=== PATIENT | female | born 1975 | race Caucasian/White ===

== ENCOUNTER 2020-07-12 18:56 | Observation (INO) | payer OTHER, MEDICAID, SELFPAY ==
[2020-07-12 19:01] VITALS: BP 165/105; PULSE 109; RESP 16; TEMP 36.7; O2SAT 96; BMI 36.8
[2020-07-12 19:49] LABS: Bacteria Urine None Seen
[2020-07-12 20:05] LABS: Culture Indicated Urine Cult Not Indicated; RBC Urine 0-1/HPF (0-5/HPF); Squamous Epithelial Cell Urine 1-5 /HPF (0-5/HPF); WBC Urine 0-1/HPF (0-5/HPF)
[2020-07-12] MEDS: SODIUM CHLORIDE 0.9% 1,000 ML 150 ML IV (20:51)
[2020-07-12] MEDS: ONDANSETRON 4 MG/2 ML INJ IV ×2 (20:51→22:39)
[2020-07-12] MEDS: MORPHINE 4 MG/ML INJ IV (20:52)
--- NOTE | 2020-07-12 20:56 | ED.ABDPAIN ---
HPI - Abdominal Pain <DAWSON Abernathy-BC - Last Filed: 07/12/20 21:51> General Chief Complaint: Abdominal Pain Stated Complaint: N/V/D and stomach pain Time Seen by Provider: 07/12/20 20:11 Source: patient Mode of arrival: Ambulatory Limitations: no limitations History of Present Illness HPI narrative: The patient is a 45-year-old female nonsmoker with history of diverticulitis who presents with a chief complaint of abdominal pain. Has been going on since yesterday, without nausea, 2 episodes of vomiting and some diarrhea this morning. She states she does not have any appetite and has not had anything solid to eat today. She denies any fevers, complains of muscle aches and chills. She states she had an episode of diverticulitis few years ago and this might feel like that. She denies any dysuria urgency or frequency. She has not taken anything to feel better. Related Data Home Medications Medication Instructions Recorded Confirmed cetirizine [Zyrtec] 10 mg PO DAILY 07/13/20 07/13/20 fluticasone propionate [Flonase 2 spray INTRANASAL DAILY 07/13/20 07/13/20 Allergy Relief] lisinopril 20 mg PO DAILY 07/13/20 07/13/20 nadolol 40 mg PO BID 07/13/20 07/13/20 Allergies Allergy/AdvReac Type Severity Reaction Status Date / Time labetalol Allergy Unknown Verified 07/12/20 20:11 Review of Systems <PRINCESS AbernathyP- - Last Filed: 07/12/20 21:51> Review of Systems Narrative: GENERAL: Denies chills, fatigue, malaise, fever, sweats. HEENT: Denies sinus pain, ear pain, sore throat, difficulty swallowing, dizziness. RESPIRATORY: Denies dyspnea, cough, wheezing, hemoptysis, sputum. CARDIOVASCULAR: Denies chest pain, palpitations, orthopnea, edema, GASTROINTESTINAL: See HPI : Denies dysuria, frequency, incontinence, hematuria, urinary retention. MUSCULOSKELETAL: denies weakness, joint pain, or bony pain SKIN: Denies rash, skin lesions, or other NEUROLOGIC: Denies weakness, headache, numbness, change in speech, confusion, seizures, incoordination. PSYCHIATRIC: No concerning psychosocial issues. 12 point review of systems is negative except for those stated above Patient History <TIMOTEO Abernathy - Last Filed: 07/12/20 21:51> Medical History (Updated 07/13/20 @ 04:44 by Valdo Golden MD) History of diverticulitis (Acute) Surgical History (Updated 07/12/20 @ 20:57 by TIMOTEO Abernathy) History of tubal ligation (Acute) Social History household members: spouse and children Smoking Status: Never smoker alcohol intake: never Smoking Status: Never smoker Substance Use Type: does not use Exam <TIMOTEO Abernathy - Last Filed: 07/12/20 21:51> Narrative Exam Narrative: GENERAL: This is a well-nourished, well-developed patient, in no acute distress HEAD: Atraumatic. Normocephalic. No temporal or scalp tenderness. EYES: Pupils equal round and reactive. Extraocular motions intact. No scleral icterus. No injection or drainage. ENT: Nose without bleeding, purulent drainage or septal hematoma. Wearing a mass. Airway patent. NECK: Trachea midline. No JVD or lymphadenopathy. Supple, nontender, no meningeal signs. CARDIOVASCULAR: Regular rate and rhythm RESPIRATORY: Clear to auscultation. Breath sounds equal bilaterally. No wheezes, rales, or rhonchi. No cough. No increased respiratory effort. No accessory muscle use. GASTROINTESTINAL: Abdomen soft, diffusely tender, nondistended. No hepato-splenomegaly, or palpable masses. No guarding. Active bowel sounds all 4 quadrants EXTREMITIES: No clubbing, cyanosis, or edema. No joint tenderness, effusion, or edema noted. BACK: Nontender without deformity or crepitance. No flank tenderness. NEURO: AOx3. No gross cranial nerve deficit. Clear speech. SKIN: No rash or erythema on visible skin Initial Vital Signs Initial Vital Signs: Vital Signs Temperature 98.0 F 07/12/20 19:01 Pulse Rate 109 H 07/12/20 19:01 Respiratory Rate 16 07/12/20 19:01 Blood Pressure 165/105 H 07/12/20 19:01 Pulse Oximetry 96 07/12/20 19:01 <Valdo Golden MD - Last Filed: 07/13/20 06:58> Initial Vital Signs Initial Vital Signs: Vital Signs Temperature 98.0 F 07/12/20 19:01 Pulse Rate 109 H 07/12/20 19:01 Respiratory Rate 16 07/12/20 19:01 Blood Pressure 165/105 H 07/12/20 19:01 Pulse Oximetry 96 07/12/20 19:01 Scores <DAWSON AbernathySusanBC - Last Filed: 07/12/20 21:51> GCS Clyo coma scale eye opening: Spontaneous Hugo coma scale verbal response: Orientated Clyo coma scale motor response: Obey commands Hugo coma scale total score: 15 Course <MILLIE AbernathyBC - Last Filed: 07/12/20 21:51> Course Course Narrative: The patient is a 45-year-old female with history of diverticulitis who presents with a chief complaint of diffuse abdominal pain. She does not have an acute abdomen on exam. She is afebrile and hemodynamically stable. Basic lab work was returned, x-ray was ordered and patient was given IV fluids as morphine and Zofran for pain. If patient was signed out to Dr. Golden at 9:45 p.m. with imaging pending. CT ordered for [facility] as our CT is down at this point. Orders Ordered: ED Orders 07/13/20 01:15 Test Serum,Qual Stat 07/13/20 01:50 CT abdomen pelvis w con Stat 07/13/20 03:20 COVID19 -ED/INPAT/OR/L&D Stat Sodium Chloride (Normal Saline 0.9%) 1,000 mls @ 150 mls/hr IV CONT KWAKU Last Admin: 07/13/20 06:27 Dose: 150 mls/hr Documented by: Infusion: 07/13/20 06:27 Dose: 0 mls/hr Documented by: Infusion: 07/13/20 05:39 Dose: 0 mls/hr Documented by: Admin: 07/13/20 01:40 Dose: 150 mls/hr Documented by: Infusion: 07/13/20 01:40 Dose: 0 mls/hr Documented by: Infusion: 07/13/20 01:39 Dose: 0 mls/hr Documented by: Admin: 07/12/20 20:51 Dose: 150 mls/hr Documented by: KEENAN Sodium Chloride (Normal Saline 0.9%) 1,000 mls @ 1,000 mls/hr IV BOLUS PRN PRN Reason: Fluid replacement Discontinued Medications Hydromorphone HCl (Dilaudid) 1 mg IV NOW ONE Stop: 07/13/20 02:45 Last Admin: 07/13/20 02:51 Dose: 1 mg Documented by: KEENAN Metronidazole (Flagyl) 500 mg in 100 mls @ 100 mls/hr IV NOW ONE Stop: 07/13/20 02:14 Last Infusion: 07/13/20 02:40 Dose: 0 mls/hr Documented by: Admin: 07/13/20 01:38 Dose: 100 mls/hr Documented by: KEENAN Piperacillin/Tazobactam/Dextrose (Zosyn) 3.375 gm in 50 mls @ 100 mls/hr IV NOW ONE Stop: 07/13/20 05:17 Last Infusion: 07/13/20 05:38 Dose: 0 mls/hr Documented by: Admin: 07/13/20 05:03 Dose: 100 mls/hr Documented by: KEENAN Metoclopramide HCl (Reglan) 10 mg IV NOW ONE Stop: 07/13/20 02:45 Last Admin: 07/13/20 02:51 Dose: 10 mg Documented by: KEENAN Morphine Sulfate (Morphine) 4 mg IV NOW ONE Stop: 07/12/20 20:20 Last Admin: 07/12/20 20:52 Dose: 4 mg Documented by: KEENAN Ondansetron HCl (Zofran) 4 mg IV NOW ONE Stop: 07/12/20 20:20 Last Admin: 07/12/20 20:51 Dose: 4 mg Documented by: KEENAN Ondansetron HCl (Zofran) 4 mg IV NOW ONE Stop: 07/12/20 22:38 Last Admin: 07/12/20 22:39 Dose: 4 mg Documented by: KEENAN Vital Signs Vital signs: Vital Signs - 8 hr 07/13/20 00:17 07/13/20 00:18 07/13/20 00:30 Pulse Rate 104 H 100 H Respiratory Rate Blood Pressure 125/74 129/69 Pulse Oximetry 95 94 92 07/13/20 01:00 07/13/20 01:30 07/13/20 02:40 Pulse Rate 100 H 99 H 100 H Respiratory Rate 16 Blood Pressure 140/89 144/89 H 136/85 Pulse Oximetry 92 93 96 07/13/20 03:00 07/13/20 03:30 07/13/20 04:00 Pulse Rate 103 H 97 H 112 H Respiratory Rate Blood Pressure Pulse Oximetry 86 L 90 L 92 07/13/20 04:03 07/13/20 04:10 Pulse Rate 108 H 109 H Respiratory Rate Blood Pressure 154/103 H 155/93 H Pulse Oximetry 92 93 <Valdo Golden MD - Last Filed: 07/13/20 06:58> Course Course Narrative: Delay and disposition due to CT scan being down and potential transfer to [facility] but change in status of CT scan allowed patient to have CT scan here. Decision to Admit Date: 07/13/20 Decision to Admit time: 04:51 Orders Ordered: ED Orders 07/13/20 01:15 Test Serum,Qual Stat 07/13/20 01:50 CT abdomen pelvis w con Stat 07/13/20 03:20 COVID19 -ED/INPAT/OR/L&D Stat Sodium Chloride (Normal Saline 0.9%) 1,000 mls @ 150 mls/hr IV CONT KWAKU Last Admin: 07/13/20 06:27 Dose: 150 mls/hr Documented by: Infusion: 07/13/20 06:27 Dose: 0 mls/hr Documented by: Infusion: 07/13/20 05:39 Dose: 0 mls/hr Documented by: Admin: 07/13/20 01:40 Dose: 150 mls/hr Documented by: Infusion: 07/13/20 01:40 Dose: 0 mls/hr Documented by: Infusion: 07/13/20 01:39 Dose: 0 mls/hr Documented by: Admin: 07/12/20 20:51 Dose: 150 mls/hr Documented by: KEENAN Sodium Chloride (Normal Saline 0.9%) 1,000 mls @ 1,000 mls/hr IV BOLUS PRN PRN Reason: Fluid replacement Discontinued Medications Hydromorphone HCl (Dilaudid) 1 mg IV NOW ONE Stop: 07/13/20 02:45 Last Admin: 07/13/20 02:51 Dose: 1 mg Documented by: KEENAN Metronidazole (Flagyl) 500 mg in 100 mls @ 100 mls/hr IV NOW ONE Stop: 07/13/20 02:14 Last Infusion: 07/13/20 02:40 Dose: 0 mls/hr Documented by: Admin: 07/13/20 01:38 Dose: 100 mls/hr Documented by: KEENAN Piperacillin/Tazobactam/Dextrose (Zosyn) 3.375 gm in 50 mls @ 100 mls/hr IV NOW ONE Stop: 07/13/20 05:17 Last Infusion: 07/13/20 05:38 Dose: 0 mls/hr Documented by: Admin: 07/13/20 05:03 Dose: 100 mls/hr Documented by: KEENAN Metoclopramide HCl (Reglan) 10 mg IV NOW ONE Stop: 07/13/20 02:45 Last Admin: 07/13/20 02:51 Dose: 10 mg Documented by: KEENAN Morphine Sulfate (Morphine) 4 mg IV NOW ONE Stop: 07/12/20 20:20 Last Admin: 07/12/20 20:52 Dose: 4 mg Documented by: KEENAN Ondansetron HCl (Zofran) 4 mg IV NOW ONE Stop: 07/12/20 20:20 Last Admin: 07/12/20 20:51 Dose: 4 mg Documented by: KEENAN Ondansetron HCl (Zofran) 4 mg IV NOW ONE Stop: 07/12/20 22:38 Last Admin: 07/12/20 22:39 Dose: 4 mg Documented by: KEENAN Reevaluation(s) Reevaluation #1: Updated patient about diagnosis and need to be admitted here. Surgeon to see patient Time: 04:52 Consultations Consultation #1: s/w dr kenny, general surgery. Had Zosyn to antibiotic. Do not order ultrasound. He will admit patient Time: 04:52 Vital Signs Vital signs: Vital Signs - 8 hr 07/13/20 00:17 07/13/20 00:18 07/13/20 00:30 Pulse Rate 104 H 100 H Respiratory Rate Blood Pressure 125/74 129/69 Pulse Oximetry 95 94 92 07/13/20 01:00 07/13/20 01:30 07/13/20 02:40 Pulse Rate 100 H 99 H 100 H Respiratory Rate 16 Blood Pressure 140/89 144/89 H 136/85 Pulse Oximetry 92 93 96 07/13/20 03:00 07/13/20 03:30 07/13/20 04:00 Pulse Rate 103 H 97 H 112 H Respiratory Rate Blood Pressure Pulse Oximetry 86 L 90 L 92 07/13/20 04:03 07/13/20 04:10 Pulse Rate 108 H 109 H Respiratory Rate Blood Pressure 154/103 H 155/93 H Pulse Oximetry 92 93 MDM - Abdominal Pain <DAWSON Abernathy- - Last Filed: 07/12/20 21:51> Differential Diagnosis Differential diagnosis: Likely abdominal pain, constipation, diverticulitis and gastroenteritis Lab Data Result diagrams: 07/12/20 20:53 07/12/20 20:53 Labs: Lab Results 07/12/20 07/12/20 07/12/20 Range/Units 19:35 20:53 20:53 WBC 19.6 H (4.5-11.0) X10^3/uL RBC 4.99 (4.0-5.2) X10^6/uL Hgb 14.8 (12.0-16.0) g/dL Hct 42.2 (36-46) % MCV 84.5 (80-100) fL MCH 29.6 (26-34) PG MCHC 35.0 (30-36) % RDW 13.2 (11.6-14.8) % Plt Count 246 (150-400) X10^3/uL Neut % (Auto) 83.4 H (50-75) % Lymph % (Auto) 9.3 L (25-40) % [place] % (Auto) 6.3 (3-14) % Eos % (Auto) 0.0 L (2-4) % Baso % (Auto) 1.0 (0-2) % Neut # (Auto) 22824 H (7740-8648) /uL Lymph # (Auto) 1800 (1828-2014) /uL [place] # (Auto) 1200 H (0-900) /uL Eos # (Auto) 0 (0-450) /uL Baso # (Auto) 200 H (0-100) /uL Sodium 135 L (137-145) mmol/L Potassium 3.5 (3.4-5.1) mmol/L Chloride 95 L (98-107) mmol/L Carbon Dioxide 29 (22-32) mmol/L BUN 15 (7-17) mg/dL Creatinine 0.72 (0.52-1.04) mg/dL Estimated GFR > 60.0 (>60) mL/min BUN/Creatinine Ratio 20.8 (6-22) Glucose 138 H (70-100) mg/dL Lactate (0.7-2.1) mmol/L Calcium 9.9 (8.4-10.2) mg/dL Total Bilirubin 0.8 (0.2-1.3) mg/dL AST 21 (14-36) IU/L ALT 20 (<35) IU/L Alkaline Phosphatase 32 L (38-126) U/L Total Protein 8.2 (6.3-8.2) g/dL Albumin 4.4 (3.5-5.0) g/dL Globulin 3.8 (1.7-4.1) g/dL Albumin/Globulin Ratio 1.2 (1.0-2.8) Lipase 106 (23-300) U/L Serum , Qual (Negative) Urine RBC 0-1/hpf (0-5/HPF) Urine WBC 0-1/hpf (0-5/HPF) Ur Squamous Epith Cells 1-5 /hpf (0-5/HPF) Urine Bacteria None seen (None) Ur Culture Indicated? Cult not indicated COVID-19 PCR (Negative) 07/12/20 07/12/20 07/13/20 Range/Units 20:53 20:53 03:20 WBC (4.5-11.0) X10^3/uL RBC (4.0-5.2) X10^6/uL Hgb (12.0-16.0) g/dL Hct (36-46) % MCV (80-100) fL MCH (26-34) PG MCHC (30-36) % RDW (11.6-14.8) % Plt Count (150-400) X10^3/uL Neut % (Auto) (50-75) % Lymph % (Auto) (25-40) % [place] % (Auto) (3-14) % Eos % (Auto) (2-4) % Baso % (Auto) (0-2) % Neut # (Auto) (4484-3656) /uL Lymph # (Auto) (9501-3994) /uL [place] # (Auto) (0-900) /uL Eos # (Auto) (0-450) /uL Baso # (Auto) (0-100) /uL Sodium (137-145) mmol/L Potassium (3.4-5.1) mmol/L Chloride (98-107) mmol/L Carbon Dioxide (22-32) mmol/L BUN (7-17) mg/dL Creatinine (0.52-1.04) mg/dL Estimated GFR (>60) mL/min BUN/Creatinine Ratio (6-22) Glucose (70-100) mg/dL Lactate 1.7 (0.7-2.1) mmol/L Calcium (8.4-10.2) mg/dL Total Bilirubin (0.2-1.3) mg/dL AST (14-36) IU/L ALT (<35) IU/L Alkaline Phosphatase (38-126) U/L Total Protein (6.3-8.2) g/dL Albumin (3.5-5.0) g/dL Globulin (1.7-4.1) g/dL Albumin/Globulin Ratio (1.0-2.8) Lipase (23-300) U/L Serum , Qual Negative (Negative) Urine RBC (0-5/HPF) Urine WBC (0-5/HPF) Ur Squamous Epith Cells (0-5/HPF) Urine Bacteria (None) Ur Culture Indicated? COVID-19 PCR Negative (Negative) Point of care testing: Urine Dip Bedside Urine Glucose Negative Bedside Urine Bilirubin - Negative Bedside Urine Ketone - Negative Urine Specific [place] 1.015 Bedside Urine Occult Blood + Bedside Urine pH 6.0 Bedside Urine Protein - Negative Bedside Urine Urobilinogen - Negative Bedside Urine Nitrite - Negative Bedside Urine Leukocytes - Negative Esterase <Valdo Golden MD - Last Filed: 07/13/20 06:58> Differential Diagnosis Differential diagnosis: Likely abdominal pain, diverticulitis, small bowel obstruction and other (Cholecystitis) Lab Data Attestation: I reviewed the patient's lab results. Labs: Lab Results 07/12/20 07/12/20 07/12/20 Range/Units 19:35 20:53 20:53 WBC 19.6 H (4.5-11.0) X10^3/uL RBC 4.99 (4.0-5.2) X10^6/uL Hgb 14.8 (12.0-16.0) g/dL Hct 42.2 (36-46) % MCV 84.5 (80-100) fL MCH 29.6 (26-34) PG MCHC 35.0 (30-36) % RDW 13.2 (11.6-14.8) % Plt Count 246 (150-400) X10^3/uL Neut % (Auto) 83.4 H (50-75) % Lymph % (Auto) 9.3 L (25-40) % [place] % (Auto) 6.3 (3-14) % Eos % (Auto) 0.0 L (2-4) % Baso % (Auto) 1.0 (0-2) % Neut # (Auto) 70515 H (5925-2799) /uL Lymph # (Auto) 1800 (1187-0171) /uL [place] # (Auto) 1200 H (0-900) /uL Eos # (Auto) 0 (0-450) /uL Baso # (Auto) 200 H (0-100) /uL Sodium 135 L (137-145) mmol/L Potassium 3.5 (3.4-5.1) mmol/L Chloride 95 L (98-107) mmol/L Carbon Dioxide 29 (22-32) mmol/L BUN 15 (7-17) mg/dL Creatinine 0.72 (0.52-1.04) mg/dL Estimated GFR > 60.0 (>60) mL/min BUN/Creatinine Ratio 20.8 (6-22) Glucose 138 H (70-100) mg/dL Lactate (0.7-2.1) mmol/L Calcium 9.9 (8.4-10.2) mg/dL Total Bilirubin 0.8 (0.2-1.3) mg/dL AST 21 (14-36) IU/L ALT 20 (<35) IU/L Alkaline Phosphatase 32 L (38-126) U/L Total Protein 8.2 (6.3-8.2) g/dL Albumin 4.4 (3.5-5.0) g/dL Globulin 3.8 (1.7-4.1) g/dL Albumin/Globulin Ratio 1.2 (1.0-2.8) Lipase 106 (23-300) U/L Serum , Qual (Negative) Urine RBC 0-1/hpf (0-5/HPF) Urine WBC 0-1/hpf (0-5/HPF) Ur Squamous Epith Cells 1-5 /hpf (0-5/HPF) Urine Bacteria None seen (None) Ur Culture Indicated? Cult not indicated COVID-19 PCR (Negative) 07/12/20 07/12/20 07/13/20 Range/Units 20:53 20:53 03:20 WBC (4.5-11.0) X10^3/uL RBC (4.0-5.2) X10^6/uL Hgb (12.0-16.0) g/dL Hct (36-46) % MCV (80-100) fL MCH (26-34) PG MCHC (30-36) % RDW (11.6-14.8) % Plt Count (150-400) X10^3/uL Neut % (Auto) (50-75) % Lymph % (Auto) (25-40) % [place] % (Auto) (3-14) % Eos % (Auto) (2-4) % Baso % (Auto) (0-2) % Neut # (Auto) (1719-0055) /uL Lymph # (Auto) (8625-6614) /uL [place] # (Auto) (0-900) /uL Eos # (Auto) (0-450) /uL Baso # (Auto) (0-100) /uL Sodium (137-145) mmol/L Potassium (3.4-5.1) mmol/L Chloride (98-107) mmol/L Carbon Dioxide (22-32) mmol/L BUN (7-17) mg/dL Creatinine (0.52-1.04) mg/dL Estimated GFR (>60) mL/min BUN/Creatinine Ratio (6-22) Glucose (70-100) mg/dL Lactate 1.7 (0.7-2.1) mmol/L Calcium (8.4-10.2) mg/dL Total Bilirubin (0.2-1.3) mg/dL AST (14-36) IU/L ALT (<35) IU/L Alkaline Phosphatase (38-126) U/L Total Protein (6.3-8.2) g/dL Albumin (3.5-5.0) g/dL Globulin (1.7-4.1) g/dL Albumin/Globulin Ratio (1.0-2.8) Lipase (23-300) U/L Serum , Qual Negative (Negative) Urine RBC (0-5/HPF) Urine WBC (0-5/HPF) Ur Squamous Epith Cells (0-5/HPF) Urine Bacteria (None) Ur Culture Indicated? COVID-19 PCR Negative (Negative) Point of care testing: Urine Dip Bedside Urine Glucose Negative Bedside Urine Bilirubin - Negative Bedside Urine Ketone - Negative Urine Specific [place] 1.015 Bedside Urine Occult Blood + Bedside Urine pH 6.0 Bedside Urine Protein - Negative Bedside Urine Urobilinogen - Negative Bedside Urine Nitrite - Negative Bedside Urine Leukocytes - Negative Esterase Imaging Data X-ray chest and abdomen: Radiologist's Impression: [place] [address] XRay Report Signed Patient: Sonya Boyle RMR#: [id number] : 1975Acct:[id number] Age/Sex: 45 / FDate of Service: 07/12/20 Loc: ED Accession Number: [id number] Procedure: XR acute abdomen series Ordering Provider: Fartun Hong PROCEDURE: XR ACUTE ABDOMEN SERIES INDICATIONS: abd pain TECHNIQUE: One view chest and two views of the abdomen were acquired. COMPARISON: None. FINDINGS: Surgical changes and devices: None. Chest: Lungs are clear. Heart size is normal. No pleural effusions. No pneumoperitoneum. Abdomen: Bowel gas pattern is normal. No suspicious calcifications. Visualized solid organ contours appear normal. Bones: No suspicious bony lesions. IMPRESSION: No acute disease process identified by plain film radiograph. If there is continued clinical concern for pathology, CT scan of the abdomen pelvis should be considered for further evaluation. Dictated by: Mary Howard MD, PhD on 07/12/2020 at 22:01 Approved by: Mary Howard MD, PhD on 07/12/2020 at 22:02 CT scan - abdomen/pelvis: Radiologist's Impression: Stone in neck of gallbladder. Gallbladder mildly distended ill-defined edema in the right upper quadrant suspect acute cholecystitis no significant biliary ductal dilatation Discharge Plan Departure Patient Disposition: Admitted as Observation Clinical Impression: Acute calculous cholecystitis Discharge Date/Time: 07/13/20 05:24 Admit Date/Time: 07/13/20 05:06 Admit Provider: Lan Kenny
[2020-07-12 21:03] LABS: Add Manual Diff / Slide Review NO; Basophils Absolute Auto 200 /uL (0-100); Eosinophils Absolute Auto 0 /uL (0-450); Hematocrit 42.2 % (36-46); Hemoglobin 14.8 g/dL (12.0-16.0); Lymphocytes Absolute Auto 1800 /uL (1100-4500); Lymphocytes Percent Auto 9.3 % (25-40); Mean Corpuscular Hemoglobin 29.6 PG (26-34); Mean Corpuscular Volume 84.5 fL (80-100); Monocytes Absolute Auto 1200 /uL (0-900); Monocytes Percent Auto 6.3 % (3-14); Neutrophils Absolute Auto 16400 /uL (1500-7000); Neutrophils Percent Auto 83.4 % (50-75); Platelet Count 246 X10^3/uL (150-400); Red Blood Cell Count 4.99 X10^6/uL (4.0-5.2); Red Cell Distribution Width 13.2 % (11.6-14.8); White Blood Cell Count 19.6 X10^3/uL (4.5-11.0)
[2020-07-12 21:12] LABS: Alanine Aminotransferase 20 IU/L (<35); Albumin 4.4 g/dL (3.5-5.0); Albumin Globulin Ratio 1.2 (1.0-2.8); Alkaline Phosphatase 32 U/L (38-126); Aspartate Aminotransferase 21 IU/L (14-36); BUN Creatinine Ratio 20.8 (6-22); Bilirubin Total 0.8 mg/dL (0.2-1.3); Blood Urea Nitrogen 15 mg/dL (7-17); Calcium 9.9 mg/dL (8.4-10.2); Carbon Dioxide 29 mmol/L (22-32); Chloride 95 mmol/L (98-107); Estimated Glomerular Filt Rate > 60.0 mL/min (>60); Globulin 3.8 g/dL (1.7-4.1); Glucose 138 mg/dL (70-100); HEMOLYSIS < 15 (0-50); Lipase 106 U/L (23-300); Potassium 3.5 mmol/L (3.4-5.1); Sodium 135 mmol/L (137-145); Total Protein 8.2 g/dL (6.3-8.2)
--- NOTE | 2020-07-12 21:15 | DI.RAD.S_ITS ---
PROCEDURE: XR ACUTE ABDOMEN SERIES INDICATIONS: abd pain TECHNIQUE: One view chest and two views of the abdomen were acquired. COMPARISON: None. FINDINGS: Surgical changes and devices: None. Chest: Lungs are clear. Heart size is normal. No pleural effusions. No pneumoperitoneum. Abdomen: Bowel gas pattern is normal. No suspicious calcifications. Visualized solid organ contours appear normal. Bones: No suspicious bony lesions. IMPRESSION: No acute disease process identified by plain film radiograph. If there is continued clinical concern for pathology, CT scan of the abdomen pelvis should be considered for further evaluation. Dictated by: Mary Howard MD, PhD on 07/12/2020 at 22:01 Approved by: Mary Howard MD, PhD on 07/12/2020 at 22:02
[2020-07-12 21:27] LABS: Lactate (Lactic Acid) 1.7 mmol/L (0.7-2.1)
[2020-07-13] VITALS (30 sets, daily range): BP systolic 97–155; BP diastolic 56–103; PULSE 63–112; RESP 12–19; TEMP 36.1–37.2; O2SAT 86–96; BMI 37.6
--- NOTE | 2020-07-13 | PATH_ITS ---
[facility] Accession Number: [id number] . 01 Material submitted: . gallbladder - GALLBLADDER AND CONTENTS . 01 Clinical history: . N/V/D AND STOMACH PAIN . 02 Diagnosis: Gallbladder, Cholecystectomy: Acute necrotizing cholecystitis with serositis. Cholelithiasis. Negative for dysplasia and malignancy. V 07/17/2020 1126 Local . 02 Electronically signed: . Zee Fuller MD, Pathologist NPI- [id number] . 01 Gross description: . Received in formalin, labeled gallbladder and contents, and consists of a 10.5 x 4.0 x 2.5 cm previously disrupted gallbladder with a 0.4 cm in diameter cystic duct and a 0.7 x 0.6 x 0.6 cm perry-pink pericystic lymph node. The serosa is perry-pink to pink-purple and smooth with focal areas of fibrinous adhesions. Opening reveals green viscous bile with multiple black to green, multifaceted surround choleliths ranging from 0.2 to 2.5 cm and measuring 4.5 x 4.0 x 2.5 cm in aggregate. The mucosa is focally denuded, green and trabeculated. The wall thickness measures 0.2 cm. Secretary sections are submitted. . A1: cystic duct margin, en face (blue) and bisected pericystic lymph node. A2: body and fundus. ([id number]) /MRV 07/16/2020 1044 Local . 02 Pathologist provided ICD-10: K81.0 . 02 CPT . 672143 Performed at: [address] [facility] [place], [place], [place] [id number] MD Diaz Broussard MD Phone: [phone] Performed at: 02 [facility] [place] [address] [place] [id number] MD Zee Fuller MD Phone: [phone]
--- NOTE | 2020-07-13 00:26 | PC.NURSE ---
Pt still waiting for acceptance of local hospital for CT scan.
[2020-07-13 01:28] LABS: Pregnancy Test Serum,Qual Negative (Negative)
[2020-07-13] MEDS: metroNIDAZOLE 500 MG/100 ML PIGGYBACK 100 MG IV (01:38)
[2020-07-13] MEDS: SODIUM CHLORIDE 0.9% 1,000 ML 150 ML IV ×2 (01:40→06:27)
--- NOTE | 2020-07-13 01:50 | DI.CT.S_ITS ---
PROCEDURE: CT ABDOMEN PELVIS W CON INDICATIONS: IV contrast only/abdominal pain TECHNIQUE: After the administration of intravenous contrast, 5 mm thick sections acquired from the diaphragm to the symphysis. 5 mm coronal and sagittal reformats were acquired. For radiation dose reduction, the following was used: automated exposure control, adjustment of mA and/or kV according to patient size. COMPARISON: [facility], MR, L-SPINE WITHOUT CONTRAST, 03/26/2014, 18:16. [facility], CR, PELVIS WITH BILATERAL HIPS, 04/03/2014, 17:33. [facility], CR, XR ACUTE ABDOMEN SERIES, 07/12/2020, 21:10. FINDINGS: Image quality: Excellent. ABDOMEN: Lung bases: Lung bases are clear. Heart size is normal. Solid organs: Liver is normal in size and enhancement. Gallbladder demonstrates a gallstone within its lumen at the gallbladder neck. Layering sludge is also seen within the gallbladder. Inflammatory changes are seen surrounding the gallbladder. Biliary system is non dilated. Pancreas enhances normally. Spleen is normal in size and enhancement. No adrenal nodules. Kidneys demonstrate normal size and enhancement, without hydronephrosis. Peritoneum and bowel: There is wall thickening seen of the duodenum. Elsewhere, no bowel wall thickening is seen. No free air or significant free fluid can be seen. No significant colonic abnormality is seen. Nodes and vessels: No retroperitoneal or mesenteric adenopathy by size criteria. Aorta and inferior vena cava are normal in size. Miscellaneous: A prominent fat containing periumbilical hernia is seen. PELVIS: Genitourinary: Bladder wall thickness is normal. The uterus appears normal for age. No adnexal masses are seen. Miscellaneous: No inguinal hernias or adenopathy. Bones: No suspicious bony lesions. No vertebral body compression fractures. IMPRESSION: A gallstone is seen within the neck of the gallbladder and there are inflammatory changes seen surrounding the gallbladder. Acute cholecystitis is suspected. If it would be helpful for clinical management decision making, please consider a dedicated right upper quadrant ultrasound for further evaluation. No biliary dilatation is seen. Wall thickening is seen of the duodenum, which is regarded to be secondary to the gallbladder inflammatory change. Incidental note is made of: Prominent fat containing periumbilical hernia Note: No significant discrepancy from the preliminary report. Dictated by: Russell Solomon M.D. on 07/13/2020 at 10:41 Approved by: Russell Solomon M.D. on 07/13/2020 at 10:44
[2020-07-13] MEDS: HYDROMORPHONE 1 MG INJ IV (02:51)
[2020-07-13] MEDS: METOCLOPRAMIDE 10 MG/2 ML INJ IV (02:51)
[2020-07-13 03:46] LABS: COVID19 -Nasal RAPID Negative (Negative)
[2020-07-13] MEDS: PIPERACILLIN-TAZO 3.375 GM/50 ML FROZ.PIGGY IV ×4 (05:03→22:38)
--- NOTE | 2020-07-13 08:52 | PM.HP.1 ---
History of Present Illness History of Present Illness Date Patient Seen: 07/13/20 Time Patient Seen: 08:52 Chief complaint: N/V/D and stomach pain Narrative: 45-year-old white female patient has had severe upper abdominal pain for 36 hours this was associated with nausea and vomiting she denies prior history of this. She has had a history of diverticulitis and has actually been hospitalized for that in the past. She also has a history of hypertension takes lisinopril for that. In the emergency department early this morning patient a CT scan confirming acute cholecystitis with a stone lodged in the neck of the gallbladder. She is brought in for IV antibiotic therapy in urgent laparoscopic cholecystectomy Patient History Medical History History of diverticulitis (Acute) Surgical History History of tubal ligation (Acute) Family & Social History Social History: household members spouse,children Prior Living Arrangements Apartment/Condo Safety & Behavioral: Feels Safe in Current Yes Environment Been Physically Hurt or No Threatened By a Person Suicidal Ideation Description None Suicide Plan Description No Plan Tobacco & Substance use: Smoking Status Never smoker alcohol intake never Substance Use Type does not use Meds Home Medications and Allergies Home Medications Medication Instructions Recorded Confirmed Type cetirizine [Zyrtec] 10 mg PO DAILY 07/13/20 07/13/20 History fluticasone propionate [Flonase 2 spray INTRANASAL DAILY 07/13/20 07/13/20 History Allergy Relief] lisinopril 20 mg PO DAILY 07/13/20 07/13/20 History nadolol 40 mg PO BID 07/13/20 07/13/20 History Allergies Allergy/AdvReac Type Severity Reaction Status Date / Time labetalol Allergy Unknown Verified 07/12/20 20:11 Review of Systems Review of Systems ROS: Yes All systems reviewed with the patient and are negative except as otherwise documented Exam Vital Signs (past 8 hours): - 07/13/20 01:00 07/13/20 01:30 07/13/20 02:40 Temperature Pulse Rate 100 H 99 H 100 H Respiratory Rate 16 Blood Pressure 140/89 144/89 H 136/85 Pulse Oximetry 92 93 96 07/13/20 03:00 07/13/20 03:30 07/13/20 04:00 Temperature Pulse Rate 103 H 97 H 112 H Respiratory Rate Blood Pressure Pulse Oximetry 86 L 90 L 92 07/13/20 04:03 07/13/20 04:10 07/13/20 05:40 Temperature 98.6 F Pulse Rate 108 H 109 H 98 H Respiratory Rate 16 Blood Pressure 154/103 H 155/93 H 127/92 H Pulse Oximetry 92 93 96 07/13/20 08:08 Temperature 98.9 F Pulse Rate 98 H Respiratory Rate 17 Blood Pressure 116/81 Pulse Oximetry 93 Oxygen Delivery Method Room Air Oxygen Flow Rate 0 Narrative Exam Narrative: Patient is alert and oriented complaining of upper abdominal pain and nausea. Lungs are clear Heart regular rhythm no murmur Abdomen tender in the upper quadrants particularly the right upper quadrant with positive Canas sign. Lower abdomen is normal. No masses are palpated. Extremities and neurologic are intact. Pelvic and rectal deferred Objective Labs Result Diagrams: 07/12/20 20:53 07/12/20 20:53 Labs: Laboratory Results - last 24 hr 07/12/20 07/12/20 07/12/20 19:35 20:53 20:53 WBC 19.6 H RBC 4.99 Hgb 14.8 Hct 42.2 MCV 84.5 MCH 29.6 MCHC 35.0 RDW 13.2 Plt Count 246 Neut % (Auto) 83.4 H Lymph % (Auto) 9.3 L Carroll % (Auto) 6.3 Eos % (Auto) 0.0 L Baso % (Auto) 1.0 Neut # (Auto) 05585 H Lymph # (Auto) 1800 Carroll # (Auto) 1200 H Eos # (Auto) 0 Baso # (Auto) 200 H Sodium 135 L Potassium 3.5 Chloride 95 L Carbon Dioxide 29 BUN 15 Creatinine 0.72 Estimated GFR > 60.0 BUN/Creatinine Ratio 20.8 Glucose 138 H Lactate Calcium 9.9 Total Bilirubin 0.8 AST 21 ALT 20 Alkaline Phosphatase 32 L Total Protein 8.2 Albumin 4.4 Globulin 3.8 Albumin/Globulin Ratio 1.2 Lipase 106 Serum , Qual Urine RBC 0-1/hpf Urine WBC 0-1/hpf Ur Squamous Epith Cells 1-5 /hpf Urine Bacteria None seen Ur Culture Indicated? Cult not indicated COVID-19 PCR 07/12/20 07/12/20 07/13/20 20:53 20:53 03:20 WBC RBC Hgb Hct MCV MCH MCHC RDW Plt Count Neut % (Auto) Lymph % (Auto) Carroll % (Auto) Eos % (Auto) Baso % (Auto) Neut # (Auto) Lymph # (Auto) Carroll # (Auto) Eos # (Auto) Baso # (Auto) Sodium Potassium Chloride Carbon Dioxide BUN Creatinine Estimated GFR BUN/Creatinine Ratio Glucose Lactate 1.7 Calcium Total Bilirubin AST ALT Alkaline Phosphatase Total Protein Albumin Globulin Albumin/Globulin Ratio Lipase Serum , Qual Negative Urine RBC Urine WBC Ur Squamous Epith Cells Urine Bacteria Ur Culture Indicated? COVID-19 PCR Negative Assessment & Plan Assessment & Plan narrative: Patient is acute cholecystitis cholelithiasis with normal LFTs. It unlikely that she has a common bile duct stone. She does have a stone in the neck of the gallbladder which is obstructing the gallbladder. Patient understands her condition and agrees to laparoscopic cholecystectomy possible open cholecystectomy. She has no unanswered questions. Quality VTE Deep Vein Thrombosis/Pulmonary Embolism Present on Admission: No
[2020-07-13] MEDS: ACETAMINOPHEN 325 MG TABLET 975 MG PO (09:23)
[2020-07-13] MEDS: LACTATED RINGERS 1,000 ML 42 ML IV ×2 (09:23→11:26)
[2020-07-13] MEDS: SCOPOLAMINE 1 PATCH TOP (09:23)
--- NOTE | 2020-07-13 10:05 | SUR.OPER ---
Supine on padded OR bed, head on pillow, arms secured on padded arm boards at <90 degrees abduction, legs uncrossed, safety belt at thigh, tape over blanket over lower legs.
[2020-07-13] MEDS: BUPIVACAINE 0.25% W/ EPI 30 ML VIAL INJ (10:13)
--- NOTE | 2020-07-13 11:02 | PM.OP.1 ---
Operative Date/Time/Diagnoses Date of procedure: 07/13/20 Time of procedure: 11:02 Pre-op diagnosis: Acute cholecystitis with cholelithiasis Post-op diagnosis: same Procedure & Clinicians Procedure: Laparoscopic cholecystectomy Same procedure as scheduled: Yes Surgeon: Lan Kenny Click Yes if Unassisted: Yes Anesthesia Type: General Operative Notes Findings: Marked suppurative acute cholecystitis with cholelithiasis Closure Type: primary Specimen(s): other (Gallbladder and stones) Estimated Blood Loss (mL): 100 Blood products transfused: none Procedure in detail: The patient was properly identified during surgical pause prepped and draped in a sterile fashion with exposure of the upper abdomen under general endotracheal anesthesia. 5 mm incision made to the right of the umbilicus and using an optical port direct entry in the peritoneal cavity was achieved under direct vision. A new must peritoneum was safely established. There was no visceral injury. Three additional right subcostal ports were placed under direct vision. Gallbladder was identified beneath adhesions from the transverse colon. It was severely acutely infected and inflamed with areas of necrosis. It was tense. I had to create a drainage opening in the dome of the gallbladder and evacuation the contents. There was some purulence. There was small stones. These were removed with the grasping forceps. Then the gallbladder was able to be elevated toward the patient's right shoulder. The cholecystoduodenal ligament was dissected using the suction tip because it was so markedly inflamed. I was able to identify the cystic duct and cystic artery in that fashion. I closed the cystic duct with multiple clips divided leaving several with the patient of the there was no bile leak. I closed the cystic artery with multiple clips divided leaving several with the patient and there was no bleeding. I was able to then bluntly shell out the gallbladder occasionally using the cautery and sharp dissection but I was able to largely employed blunt dissection to extract the gallbladder from liver bed. The gallbladder and its contents were removed. Careful inspection of the operative site revealed several small stones which were completely removed with the stone forceps. Then I irrigated the operative field with 2 L of sterile saline. I aspirated dry. There was no bleeding and no bile leak. The trocars removed under direct vision. The skin was stapled and sterile dressings applied. This was well tolerated. Complications: none Post-operative Condition: stable Disposition: PACU
[2020-07-13] MEDS: HYDROMORPHONE 2 MG INJ IV ×6 (11:10→11:35)
--- NOTE | 2020-07-13 12:00 | SUR.PHASEI ---
Report called to Idalia Lea
[2020-07-13] MEDS: DEXTROSE 5%-0.45% NS 1,000 ML 100 ML IV ×2 (12:44→23:47)
[2020-07-13] MEDS: FAMOTIDINE 20 MG/50 ML PIGGYBACK 200 MG IV ×2 (12:44→23:41)
[2020-07-13] MEDS: OXYCODONE/ACETAMINOPHEN 5/325 TABLET 1 TAB PO ×3 (12:46→21:32)
--- NOTE | 2020-07-13 13:01 | SUR.PHASEI ---
Patient transferred to the floor with pulse ox. Report given to Idalia Lea. VS stable. Abd dressings CDI. IV saline locked x2.
--- NOTE | 2020-07-13 13:07 | SUR.PHASEI ---
Clarified post op orders with Dr. Kenny. Discontinue tele per .
[2020-07-13] MEDS: ONDANSETRON 4 MG/2 ML INJ IV (16:38)
[2020-07-13] MEDS: MORPHINE 2 MG/ML INJ IV (23:47)
[2020-07-14] VITALS (8 sets, daily range): BP systolic 90–113; BP diastolic 51–78; PULSE 59–86; RESP 15–18; TEMP 36.1–37.2; O2SAT 92–98
[2020-07-14] MEDS: OXYCODONE/ACETAMINOPHEN 5/325 TABLET 1 TAB PO ×2 (04:05→08:28)
[2020-07-14] MEDS: PIPERACILLIN-TAZO 3.375 GM/50 ML FROZ.PIGGY IV ×4 (04:06→21:55)
[2020-07-14] MEDS: LORATADINE 10 MG TABLET PO (08:28)
--- NOTE | 2020-07-14 09:01 | PM.PN.1 ---
Subjective Subjective Date Patient Seen: 07/14/20 Time Patient Seen: 09:01 Interval history: Patient is 1 day post laparoscopic cholecystectomy for severe suppurative cholecystitis with cholelithiasis. She feels better than preoperatively but is still having upper abdominal pain some nausea does not feel like eating. Exam Vital Signs (past 8 hours): - 07/14/20 04:18 07/14/20 08:00 07/14/20 08:24 Temperature 97.2 F L 97.6 F Pulse Rate 59 L 86 67 Respiratory Rate 18 16 16 Blood Pressure 94/68 111/67 Pulse Oximetry 96 97 94 Oxygen Delivery Method Room Air Oxygen Flow Rate 0 Narrative Exam Narrative: Skin and sclerae are clear with no signs of jaundice Lungs distant breath sounds Abdomen is a bit distended trocar sites are healing appropriately. The only abdominal tenderness is around the trocars sites Objective Labs Result Diagrams: 07/12/20 20:53 07/12/20 20:53 Assessment & Plan Assessment & Plan narrative: Patient is recovering from laparoscopic cholecystectomy for severe acute suppurative cholecystitis. I will continue her antibiotic therapy continue some IV fluids were reduced the rate encouraged her to get out of bed and ambulate check labs again today. Quality VTE Deep Vein Thrombosis/Pulmonary Embolism Present on Admission: No
[2020-07-14] MEDS: OXYCODONE/ACETAMINOPHEN 5/325 TABLET 2 TAB PO ×3 (11:21→22:01)
[2020-07-14] MEDS: FAMOTIDINE 20 MG/50 ML PIGGYBACK 200 MG IV (12:30)
--- NOTE | 2020-07-14 14:29 | PC.NURSE ---
Addendum entered by Idalia Lea R.N. 07/14/20 14:32: Has been up amb in [facility]. Is taking more of her diet. Requesting to have IV saline locked. Vds w/out diff. Lungs clear through out. RA sats have been 95% or greater. made aware, see new orders. Original Note: Post-op: Feels better today. MD made aware bp meds held this am, they were 90's systolic, last bp 110's distolic. Pt reports she doesn't feel dizzy or lightheaded when up. Min amt of diet taken but is taking po
[2020-07-14 14:35] LABS: Add Manual Diff / Slide Review NO; Basophils Absolute Auto 100 /uL (0-100); Basophils Percent Auto 0.4 % (0-2); Eosinophils Absolute Auto 0 /uL (0-450); Eosinophils Percent Auto 0.1 % (2-4); Hematocrit 34.4 % (36-46); Hemoglobin 11.7 g/dL (12.0-16.0); Lymphocytes Absolute Auto 1700 /uL (1100-4500); Lymphocytes Percent Auto 10.2 % (25-40); Mean Corpuscular Hemoglobin 29.4 PG (26-34); Mean Corpuscular Volume 86.4 fL (80-100); Monocytes Absolute Auto 1300 /uL (0-900); Monocytes Percent Auto 7.8 % (3-14); Neutrophils Absolute Auto 13500 /uL (1500-7000); Neutrophils Percent Auto 81.5 % (50-75); Platelet Count 204 X10^3/uL (150-400); Red Blood Cell Count 3.98 X10^6/uL (4.0-5.2); Red Cell Distribution Width 13.3 % (11.6-14.8); White Blood Cell Count 16.6 X10^3/uL (4.5-11.0)
[2020-07-14 14:47] LABS: Alanine Aminotransferase 56 IU/L (<35); Albumin 3.6 g/dL (3.5-5.0); Albumin Globulin Ratio 1.1 (1.0-2.8); Alkaline Phosphatase 29 U/L (38-126); Aspartate Aminotransferase 40 IU/L (14-36); Bilirubin Total 0.5 mg/dL (0.2-1.3); Bilirubin Unconjugated 0.3 mg/dL (0.0-1.1); Globulin 3.3 g/dL (1.7-4.1); HEMOLYSIS < 15 (0-50); Total Protein 6.9 g/dL (6.3-8.2)
--- NOTE | 2020-07-14 15:10 | CM.DANOTE ---
DCP Assessment: EMR reviewed: Patient is a 45 yr old female who was admitted for Cholecystectomy preformed by Dr. Kenny. CM/Rn met with patient at the bedside and explained role. Patient was A&O x3 during visit. Patient stated she was in a lot of pain and classified it as a 6/10 which CM/Rn told patients nurse about. Patient currently lives in an apartment with her 3 teenage children and her . Patient is Independent with all ADLS and drives at baseline. Patient states she has not been getting up as much as she should because of her pain. CM/Rn encouraged patient to move around. Patient states that its hard for her to breath at times because of pain. CM/RN gave message to patients nurse. Patient states she has been up to the bathroom a few times but that is the most she has moved around today. I: [employer] and Medicaid. Plan: D/C home with family when medically stable. No identified D/C planning needs noted at this time. CM department will follow to help assist with any D/C planning needs she may have. Tonia Cunha RN Discharge Planning/Care Management Advanced directive, confirm from FAMILY Start: 07/13/20 05:59 Freq: Q24H Status: Complete Protocol: Document 07/13/20 13:06 CEW (Rec: 07/13/20 13:07 CEW [id number]) Advance Directive, confirm on record Time 13:06 Person contacted Self, doesnt have one or want info, self reports FC.Doesn't want to be aske Copy received No CM Discharge Assessment Start: 07/14/20 15:09 Freq: Status: Active Protocol: Document 07/14/20 15:09 (Rec: 07/14/20 15:10 [id number]) Discharge Planning Assessment Assigned [employer] Order Filler Tonia Cunha RN DPOA/Assigned Designee Name Jens Boyle () Contact Information [phone] Advance Directives? No History Provided By Patient Has Patient been admitted in last 30 No days? Prior Living Arrangements Apartment/Condo Household Members spouse,children Comment Patient has three teenage sons and her in the home. Type of transporation used prior to Drives own vehicle admit Independent with ADL's Yes Is patient alert and oriented? Yes Caregiver for Another Yes: 3 teenage sons Discharge Plan Home Referrals Initiated None needed Whiteboard Updated in Patient Room with Yes name and ext. # of [employer] Order Filler Review Status In Process Next Review Type Continued Stay Review
[2020-07-14] MEDS: FAMOTIDINE 20 MG TABLET PO (21:54)
--- NOTE | 2020-07-15 00:11 | PC.NURSE ---
Seen and assessed at 2338. Is alert and oriented. Breath sounds CTA with RA sat of 94%. HRR. Denies nausea. BT present but tympanic sounding. Abdomen is soft but distended and tender with discomfort of 4/10 which she states has improved since taking pain med at 2201. Lap sites x 4 with drainage on umbilical dressing and spots of drainage on 2 left abdominal sited. Denies dysuria, frequency or urgency with urination. Is independent with mobility and denies feeling weak or unsteady. Has chronic neuropathy in bilateral LE from toe to buttock due to sciatica. Fall risk score is low.
[2020-07-15] MEDS: OXYCODONE/ACETAMINOPHEN 5/325 TABLET 2 TAB PO ×3 (03:25→12:28)
[2020-07-15 03:27] VITALS: BP 126/85; PULSE 71; RESP 16; TEMP 37.5; O2SAT 95
[2020-07-15] MEDS: PIPERACILLIN-TAZO 3.375 GM/50 ML FROZ.PIGGY IV ×2 (04:45→10:33)
[2020-07-15] MEDS: SODIUM CHLORIDE 0.9% FLUSH 10 ML IV ×3 (04:45→10:33)
[2020-07-15 07:14] VITALS: BP 105/69; PULSE 69; RESP 16; TEMP 36.6; O2SAT 96
[2020-07-15] MEDS: DOCUSATE 100 MG CAPSULE PO (08:29)
[2020-07-15] MEDS: FAMOTIDINE 20 MG TABLET PO (08:30)
--- NOTE | 2020-07-15 09:20 | PC.NURSE ---
Addendum entered by Hanna Live R.N. 07/15/20 13:20: Pt left unit at 1320 in no distress via wheelchair with [employer] escort. Pt's present to drive pt home. Pt left with all belongings. Addendum entered by Hanna Live R.N. 07/15/20 13:15: Discharge summary packet reviewed with pt and her spouse at bedside. Reviewed but not limited to S/S of infection, F/U appointment info, medication review, post op care, preventing constipation. Pt states she has a blood pressure wrist cuff device at home that works ok, needs a new one. Pt states having all her belongings upon discharge. No further voiced concerns. Original Note: Day Shift- Pt A&OX4, able to make needs known using call light. Rates 5/10 aching and bloating mainly to upper abd, slightly tender to touch. pain management plan discussed. Prn Percocet 2 tabs given with breakfast at 0830 and PRN pain med next will be likely prior to pt discharging home. Pt expresses wishes to discharge home today. OOB indep with steady gait, ambulating in room and to BR. Voiding qs, no BM post op yet. Pt is passing flatus. Abd lap sites X4 gauze and tegaderm dressings are intact. Upper abd lap site dressing has small to moderate saturation of sero-sang drainage, no leaking. LEft side abd lap sites X2 have scant spot drainage. Right side abd lap site is CDI. Encouraged abd splinting, pt states it feels like she cannot take a deep breath se to abd pain and bloating. Encouraged incentive spirometer use with abd splinting. Pt states she has miralax at home to prevent constipation. Held BP medications X2 on eMAR as BP was 105/69 and pt request to hold for now. No other voiced concerns.
[2020-07-15] MEDS: SODIUM CHLORIDE 0.9% 250 ML 21 ML IV (10:33)
[2020-07-15 11:15] LABS: Add Manual Diff / Slide Review NO; Basophils Absolute Auto 0 /uL (0-100); Basophils Percent Auto 0.6 % (0-2); Eosinophils Absolute Auto 100 /uL (0-450); Eosinophils Percent Auto 1.6 % (2-4); Hematocrit 32.6 % (36-46); Hemoglobin 11.1 g/dL (12.0-16.0); Lymphocytes Absolute Auto 1200 /uL (1100-4500); Lymphocytes Percent Auto 14.5 % (25-40); Mean Corpuscular HGB Conc 33.9 % (30-36); Mean Corpuscular Hemoglobin 29.4 PG (26-34); Mean Corpuscular Volume 86.5 fL (80-100); Monocytes Absolute Auto 700 /uL (0-900); Neutrophils Absolute Auto 6000 /uL (1500-7000); Neutrophils Percent Auto 74.3 % (50-75); Platelet Count 194 X10^3/uL (150-400); Red Blood Cell Count 3.77 X10^6/uL (4.0-5.2); Red Cell Distribution Width 13.1 % (11.6-14.8); White Blood Cell Count 8.1 X10^3/uL (4.5-11.0)
[2020-07-15 11:20] VITALS: BP 113/62; PULSE 82; RESP 16; TEMP 36.6; O2SAT 96
--- NOTE | 2020-07-15 12:25 | P.DS_ITS ---
History of Present Illness History of Present Illness Chief complaint: N/V/D and stomach pain Narrative: 45-year-old woman with obesity who presented with acute cholecystitis. Discharge Providers Provider Date of admission: 07/13/20 05:06 Discharge Date: 07/15/20 Discharge provider: Gera Ruby MD Summary Hospital Course Discharge Diagnosis: Acute cholecystitis Obesity Hospital Course: Patient underwent a laparoscopic cholecystectomy 07/13 which demonstrated acute cholecystitis. She remained hospitalized postoperatively for pain and antibiotic therapy. On postoperative day 2 she is tolerant of a regular diet her pain is controlled and her leukocytosis has resolved. Exam Vital Signs (past 8 hours): - 07/15/20 07:14 07/15/20 11:20 Temperature 97.8 F 97.9 F Pulse Rate 69 82 Respiratory Rate 16 16 Blood Pressure 105/69 113/62 Pulse Oximetry 96 96 Oxygen Delivery Method Room Air Oxygen Flow Rate 0 Narrative Exam Narrative: General adult female obese no acute distress Abdomen soft appropriately tender to palpation incisions clean dry intact Objective Labs Result Diagrams: 07/15/20 11:00 07/12/20 20:53 Labs: Laboratory Results - last 24 hr 07/14/20 07/14/20 07/15/20 14:23 14:23 11:00 WBC 16.6 H 8.1 D RBC 3.98 L 3.77 L Hgb 11.7 L 11.1 L Hct 34.4 L 32.6 L MCV 86.4 86.5 MCH 29.4 29.4 MCHC 34.0 33.9 RDW 13.3 13.1 Plt Count 204 194 Neut % (Auto) 81.5 H 74.3 Lymph % (Auto) 10.2 L 14.5 L Patrick % (Auto) 7.8 9.0 Eos % (Auto) 0.1 L 1.6 L Baso % (Auto) 0.4 0.6 Neut # (Auto) 61505 H 6000 Lymph # (Auto) 1700 1200 Patrick # (Auto) 1300 H 700 Eos # (Auto) 0 100 Baso # (Auto) 100 0 Total Bilirubin 0.5 Conjugated Bilirubin 0.0 Unconjugated Bilirubin 0.3 AST 40 H ALT 56 H Alkaline Phosphatase 29 L Total Protein 6.9 Albumin 3.6 Globulin 3.3 Albumin/Globulin Ratio 1.1 Discharge Plan Discharge Plan Patient Disposition: Home Discharge orders & Medications Prescriptions: New oxycodone 5 mg tablet 5 mg PO Q6H PRN (Reason: pain) Qty: 30 RF: 0 acetaminophen [Tylenol] 325 mg capsule 650 mg PO QID PRN (Reason: pain) Qty: 60 RF: 0 Continued nadolol 40 mg tablet 40 mg PO BID RF: 0 lisinopril 20 mg tablet 20 mg PO DAILY RF: 0 fluticasone propionate [Flonase Allergy Relief] 50 mcg/actuation [place],Suspension 2 spray INTRANASAL DAILY RF: 0 Zyrtec 10 mg Capsule 10 mg PO DAILY RF: 0 Follow up/Referrals: Lan Kenny MD [Physician] - 07/30/20 9:30 am (Your follow up appointment will be with Dr. Bailey on July 30 - 9:30 AM check in) Diet/Activity/Treatments Diet: Low-fat Activity: No lifting >20 lbs x 4 weeks. Walking only for exercise for [address] while taking narcotics. Skin/Wound/Dressing Care Report to your healthcare provider any signs of infection, such as:: chills, fever, increased pain and unusual drainage Visit Report/Discharge Packet Instructions: DI for Postoperative Pain, DI for Prescription Opioid Use, DI for Laparoscopic Cholecystectomy Visit Report Forms: Patient Portal/API, Stroke Signs & Symptoms Discharge Data Attending Provider: Lan Kenny Admit Date/Time: 07/13/20 05:06 Quality VTE Deep Vein Thrombosis/Pulmonary Embolism Present on Admission: No
== END 2020-07-15 13:20 | disposition home or self-care (01) ==
LOC: ED 07-13 04:44 → AC 07-13 09:18
PROVIDERS: Emergency Medicine; Surgery; Admitting Provider Surgery; Emergency Provider Nurse Practitioner Family; Referring Provider Surgery; Visit Provider Surgery
PROC: 0FT44ZZ Resection of Gallbladder, Percutaneous Endoscopic Approach (ICD-10-PCS; CPT 47562; principal; 2020-07-13 08:45)
DX: K80.00 Calculus of gallbladder with acute cholecystitis without obstruction (principal); I10 Essential (primary) hypertension; E66.9 Obesity, unspecified; Z68.38 Body mass index [BMI] 38.0-38.9, adult; Z11.59 Encounter for screening for other viral diseases
CPT/HCPCS: 47562; 36415; 74022; 74177; 80053; 80076; 81003; 81015; 83605; 83690; 84703; 85025; 87635; 94762; 96361; 96365; 96366; 96367; 96368; 96375; 96376; 99284; G0378; A9270; J0330; J1100; J1170; J1885; J2250; J2270; J2405; J2543; J2704; J2765; J3010; Q9967

== ENCOUNTER → 2020-09-24 08:58 | Outpatient (CLI) | payer OTHER, MEDICAID, SELFPAY ==
[2020-07-13 05:43] VITALS: BMI 37.6
[2020-09-24 10:41] LABS: COVID19 -Nasal RAPID Negative (Negative)
== END ==
PROVIDERS: Visit Provider Surgery
DX: Z01.812 Encounter for preprocedural laboratory examination (principal); Z20.828 Contact with and (suspected) exposure to other viral communicable diseases
CPT/HCPCS: 87635; 99211

== ENCOUNTER 2020-09-25 12:16 | Day surgery (SDC) | payer OTHER, MEDICAID, SELFPAY ==
[2020-07-13 05:43] VITALS: BMI 37.6
[2020-09-25] VITALS (27 sets, daily range): BP systolic 102–138; BP diastolic 52–90; PULSE 62–86; RESP 10–23; TEMP 35.9–36.6; O2SAT 92–99; BMI 36.8
--- NOTE | 2020-09-25 | PATH_ITS ---
[facility] Accession Number: [id number] . 01 Material submitted: . hernia - VENTRAL HERNIA SAC . 01 Clinical history: . SDC . 02 Diagnosis: Ventral Hernia Sac, Excision: Fibroadipose tissue, consistent with hernia sac. No evidence of neoplasm. MRV 09/27/2020 1300 Local . 02 Electronically signed: . Aj Roberts MD, PhD, Pathologist NPI- [id number] . 01 Gross description: . The specimen is received in formalin, labeled ventral hernia sac and consists of a 5.5 x 4.0 x 4.0 cm perry-pink fibromembranous fragment of soft tissue with attached perry-yellow adipose tissue. Inspector Fuel Hose sections are submitted in cassettes A1-A2. ([id number]) /[facility] 09/26/2020 1554 Local . 02 Pathologist provided ICD-10: K43.6 . 02 CPT . 993306 Performed at: 01 [facility] [address], [place], [place] [id number] MD Diaz Broussard MD Phone: [phone] Performed at: 02 [facility] [address] [place], [place] [id number] MD Zee Fuller MD Phone: [phone]
[2020-09-25] MEDS: LACTATED RINGERS 1,000 ML 42 ML IV ×2 (12:51→15:18)
--- NOTE | 2020-09-25 13:40 | PM.PREOP ---
Pre-operative Note COVID-19 COVID-19 status: Negative Result date/Date tested (Pos, Neg/Pending): 09/24/20 Interval Note History & Physical reviewed/Exam performed by Physician: Yes Changes to H&P: No
[2020-09-25] MEDS: ACETAMINOPHEN 325 MG TABLET 975 MG PO (13:52)
[2020-09-25] MEDS: SCOPOLAMINE 1 PATCH TOP (13:53)
[2020-09-25] MEDS: CEFAZOLIN 2 GM/100 ML FROZ.PIGGY IV (14:02)
--- NOTE | 2020-09-25 14:38 | SUR.OPER ---
Supine on padded OR bed, head on pillow, arms secured on padded arm boards at <90 degrees abduction, legs uncrossed, safety belt at thigh, tape over blanket over lower legs.
[2020-09-25] MEDS: BUPIVACAINE 0.5% W/ EPI (PF) 30 ML VIAL INJ ×2 (14:47→16:01)
[2020-09-25] MEDS: BUPIVACAINE LIPOSOME 266 MG/20 ML VIAL INJ (16:03)
--- NOTE | 2020-09-25 16:41 | PM.OP.1 ---
Operative Date/Time/Diagnoses Date of procedure: 09/25/20 Time of procedure: 16:41 Pre-op diagnosis: Incarcerated ventral incisional hernia Post-op diagnosis: same Procedure & Clinicians Procedure: Open repair of incarcerated ventral incisional hernia with mesh, separation of components Same procedure as scheduled: Yes Indications: This is a 45 yo woman with history of incarcerated ventral incisional hernia at the site of her prior tubal ligation. It causes her pain, and it is not reducible. She is at risk of significant morbidity if the hernia is not repaired. Surgeon: Marilu Bailey Click Yes if Unassisted: Yes Anesthesia Type: General Operative Notes Findings: 4cm x 4cm ventral hernia with incarcerated omentum Specimen(s): other (hernia sac) Prosthetic devices, grafts, tissues, transplants, or devices: Bard 10 x 10cm soft mesh Estimated Blood Loss (mL): 10 Procedure in detail: The patient was brought to the operating room, placed supine on the operating table, and sequential compression devices were placed on both legs and turned on. Appropriate perioperative antibiotics were given. General anesthesia was induced by the anesthesiologist and the patient was intubated with an LMA. The abdomen was then prepped and draped in sterile fashion, and a surgical time-out was conducted. At this point local anesthetic was injected using 0.5% Marcaine with epi, at the site of the planned incision. A 5cm transverse curvilinear incision was then made in the skin just inferior to the umbilicus, incorporating the patient's prior scar. Dissection was then carried down through the dermis and subcutaneous tissue, until the hernia sac was encountered. The hernia sac was very large, and was incarcerated with omentum. Prolonged tedious dissection was undertaken to dissect out and reduce the omentum back into the abdomen. This portion of the operation took about 55 minutes. Once the omentum was reduced, I was able to evaluate the defect. It was about 4cm x 4cm. I divided the posterior fascia off of the rectus muscle, creating a flap of posterior fascia. The fascia and rectus muscle were laterally in each direction for 5cm left and right. The flaps were connected in the superior and inferior midline. The posterior fascia was then closed with running 0-Vicryl using a small needle. Local anesthetic and Exparel were injected into the abdominal wall circumferentially. A 10cm x 10cm BARD polypropelene macroporous mesh was brought into the field and tacked down in the retrorectus position using 3-0 PDS. The anterioir fascia was then closed with running 0 Vicryl. I then covered the fascial sutures with subcutaneous fat bringing it together with 3-0 Vicryl suture, tacked down the umbilical skin with 3-0 Vicryl and closed the skin with subcuticular Monocryl 4-0. The skin edges were then sealed with Dermabond. This concluded the procedure. Two cotton balls were placed in the umbilicus and covered with a Tegaderm. The patient was awakened from anesthesia and extubated. She was transferred onto his hospital [facility]. The patient was then transferred to the postanesthesia care unit in stable condition. She tolerated the procedure well. Needle sponge and instrument counts were correct x2 at the end of the case. Complications: none Post-operative Condition: stable Disposition: PACU
[2020-09-25] MEDS: HYDROMORPHONE 2 MG INJ IV ×4 (17:01→17:26)
[2020-09-25] MEDS: KETOROLAC 30 MG/ML VIAL IV ×2 (17:33→23:29)
--- NOTE | 2020-09-25 19:12 | PC.ADMIT ---
[email or web address] Admission Note: The patient,Sonya Boyle,45 y/o, was given written information regarding hospital policies, unit procedures and contact persons. Patient's smoking status: Never smoker. Vital Signs - 8 hr 09/25/20 12:39 09/25/20 16:42 09/25/20 16:46 Temperature 97.9 F 97.4 F L Pulse Rate 73 86 83 Respiratory Rate 18 14 12 Blood Pressure 138/90 102/70 112/73 Pulse Oximetry 97 95 94 09/25/20 16:51 09/25/20 17:01 09/25/20 17:06 Temperature Pulse Rate 79 78 82 Respiratory Rate 12 11 L 12 Blood Pressure 120/64 129/70 135/75 Pulse Oximetry 94 94 93 09/25/20 17:12 09/25/20 17:16 09/25/20 17:21 Temperature Pulse Rate 81 78 77 Respiratory Rate 10 L 12 23 Blood Pressure 125/63 115/82 122/75 Pulse Oximetry 92 93 94 09/25/20 17:26 09/25/20 17:31 09/25/20 17:37 Temperature 97.7 F Pulse Rate 74 81 81 Respiratory Rate 12 16 14 Blood Pressure 126/77 125/74 113/75 Pulse Oximetry 97 95 95 09/25/20 17:41 09/25/20 17:46 09/25/20 17:51 Temperature Pulse Rate 82 75 69 Respiratory Rate 12 12 12 Blood Pressure 114/78 118/66 108/71 Pulse Oximetry 96 93 96 09/25/20 17:56 09/25/20 18:01 09/25/20 18:11 Temperature Pulse Rate 74 82 72 Respiratory Rate 12 12 12 Blood Pressure 111/69 108/72 114/78 Pulse Oximetry 95 95 94 09/25/20 18:16 09/25/20 18:35 09/25/20 19:05 Temperature 97.1 F L 96.7 F L 97.2 F L Pulse Rate 76 73 74 Respiratory Rate 16 15 16 Blood Pressure 108/71 132/86 119/52 L Pulse Oximetry 94 99 94 Pt arrived at approx 1830. A/O. Ambulated off stretcher to bathroom. Voided and returned to bed. Oriented to room and call system. Bed alarm on. Call light within reach.
[2020-09-25] MEDS: ACETAMINOPHEN 325 MG TABLET 650 MG PO ×2 (19:35→23:29)
[2020-09-25] MEDS: OXYCODONE IR 5 MG TABLET PO (21:08)
[2020-09-25] MEDS: SODIUM CHLORIDE 0.9% FLUSH 10 ML IV (23:30)
[2020-09-25] MEDS: BENZOCAINE/MENTHOL 1 LOZ PKT 1 EACH PO (23:30)
--- NOTE | 2020-09-25 23:52 | PC.NURSE ---
Patient is alert and oriented. Breath sounds CTA with RA sat of 94%; on continuous oximetry. HRR but bradycardic with rate in 50's apically and on monitor. Denies nausea. BT present but denies flatus. Complains of incisional pain so medicated with scheduled Tylenol + Toradol. Abdomen is soft but tender. Dressing to abdomen is CDI; wearing abdominal binder. Denies dysuria, frequency or urgency with urination. Able to move self in bed and is up to bathroom with 1 assist as state she feels weak still. Wearing bilateral wili SCD's. Chronic bilateral leg/foot neuropathy unchanged. Fall risk score is moderate but patient verbalizes she will call for assistance and not get out of bed on her own. Complains of sore throat so medicated with Cepacol.
[2020-09-26 03:22] VITALS: BP 101/63; PULSE 64; RESP 16; TEMP 36.7; O2SAT 95
[2020-09-26] MEDS: OXYCODONE IR 5 MG TABLET PO ×2 (03:54→07:37)
[2020-09-26] MEDS: ACETAMINOPHEN 325 MG TABLET 650 MG PO (06:02)
[2020-09-26] MEDS: ENOXAPARIN 40 MG/0.4 ML SYRINGE SUBCUT (07:35)
[2020-09-26] MEDS: LORATADINE 10 MG TABLET PO (07:36)
[2020-09-26] MEDS: SENNOSIDES 8.6 MG TABLET 17.2 MG PO (07:37)
[2020-09-26] MEDS: INFLUENZA VACCINE 0.5 ML SYRINGE IM (07:38)
[2020-09-26] MEDS: SODIUM CHLORIDE 0.9% FLUSH 10 ML IV (07:38)
[2020-09-26] MEDS: FLUTICASONE 120 SPRAY/16 GM SPRAY.SUSP NASAL (07:38)
[2020-09-26 07:44] VITALS: BP 96/50; PULSE 63
[2020-09-26 08:00] VITALS: BP 96/59; PULSE 56; RESP 16; TEMP 36.4; O2SAT 97
[2020-09-26 08:29] VITALS: BP 95/54; PULSE 60
--- NOTE | 2020-09-26 09:18 | CM.DANOTE ---
DCP: Case received, EMR reviewed and met with patient. Introduced self and role. Was able to obtain information from patient regarding her baseline activity status and living situation from patient before hospitalization. DCP assessment completed with information currently available. Patient is a 45 year old female who admitted yesterday afternoon to the care of the surgical team. PCP: Wendy [facility]. Payer: [facility]/Medicaid. Patient came to the hospital via private vehicle for a surgical procedure. She had surgery for a incarcerated ventral incisional hernia. Met with patient in her room. She was sitting up in bed, alert and oriented. She resides in [place] with her spouse, Shanae, and two children. She is independent at baseline. Discussed providers, stated that they closed the clinic on , where her provider used to be, which is now a walk in clinic. She mentioned that they can't get an appointment to be seen until Nov. She mentioned wanting a provider for her and her children here in [place]. Gave her the phone number for [facility], and let her know that they are accepting new patients. P: Patient is to be discharging home today with no needs. Taylor Carvajal, RN/Binding Cutter
--- NOTE | 2020-09-26 10:02 | PC.NURSE ---
Patient educated about new medications, activity, incision site, abdominal binder, SS of stroke, SS of infection, follow up appt's, prescription opioid use. Patient's prescriptions were sent electronically to pharmacy. Patient and verbalized understanding to all discharge teaching. Patient left facility via private vehicle and wheelchair.
== END 2020-09-26 13:08 | disposition home or self-care (01) ==
LOC: OR 16:49 → AC 09-26 07:44
PROVIDERS: Referring Provider Surgery; Visit Provider Surgery
PROC: (CPT 49561; principal; 2020-09-25 13:45)
DX: K43.0 Incisional hernia with obstruction, without gangrene (principal); K52.9 Noninfective gastroenteritis and colitis, unspecified; E66.9 Obesity, unspecified; Z68.36 Body mass index [BMI] 36.0-36.9, adult; I10 Essential (primary) hypertension; E78.5 Hyperlipidemia, unspecified
CPT/HCPCS: 49561; 49568; 90471; 90656; 94762; C1781; G0378; C9290; J0330; J0690; J1100; J1170; J1650; J1885; J2250; J2405; J2704; J3010; Q2038

== ENCOUNTER → 2021-04-19 08:59 | Outpatient (CLI) | payer OTHER, MEDICAID, SELFPAY ==
[2020-09-25 21:30] VITALS: BMI 36.8
--- NOTE | 2021-04-19 09:00 | DI.MG.S_ITS ---
BILATERAL DIGITAL SCREENING MAMMOGRAM 3D/2D WITH CAD: 04/19/2021 CLINICAL: Routine screening. Comparison is made to exams dated: 12/29/2018 mammogram and 01/04/2019 mammogram - [facility]. The tissue of both breasts is heterogeneously dense. This may lower the sensitivity of mammography. Current study was also evaluated with a Computer Aided Detection (CAD) system. No significant masses, calcifications, or other findings are seen in either breast. There has been no significant interval change. IMPRESSION: NEGATIVE There is no mammographic evidence of malignancy. A 1 year screening mammogram is recommended. This exam was interpreted at Station ID: [id number]. NOTE: For mammograms, a report in lay terms will be sent to the patient. Approximately 15% of breast malignancies will not be visualized mammographically. In the management of a palpable breast mass, a negative mammogram must not discourage biopsy of a clinically suspicious lesion. Electronically Signed By: Juan Diego Johnson M.D. [email or web address]:04/22/2021 07:41:21 letter sent: Normal Exam ACR BI-RADS Category 1: Negative [id number]
== END ==
PROVIDERS: PCP Registered Nurse Diabetes Educator; Referring Provider Registered Nurse Diabetes Educator; Visit Provider Registered Nurse Diabetes Educator
DX: Z12.31 Encounter for screening mammogram for malignant neoplasm of breast (principal)
CPT/HCPCS: 77063; 77067

== ENCOUNTER 2021-06-02 13:38 | Emergency (ER) | payer OTHER, MEDICAID, SELFPAY ==
[2020-09-25 21:30] VITALS: BMI 36.8
[2021-06-02 14:10] VITALS: BP 155/99; PULSE 79; RESP 17; TEMP 36.6; O2SAT 98; BMI 36.0
[2021-06-02 15:26] LABS: Appearance Urine UA CLEAR; Bilirubin Urine UA NEGATIVE (NEGATIVE); Color Urine UA YELLOW; Glucose Urine UA NEGATIVE (Negative); Ketones Urine UA TRACE (NEGATIVE); Leukocyte Esterase Urine UA TRACE (NEGATIVE); Nitrite Urine UA POSITIVE (Negative); Occult Blood Urine UA 3+ (Negative); Protein Urine UA 3+ (Negative); Specific Gravity Urine UA >=1.030 (1.000-1.035); Urobilinogen Urine UA 0.2 E.U./dL (0.2)
[2021-06-02 15:35] LABS: Calcium Oxalate Crystals Urine Few; RBC Urine 30-100/HPF (0-5/HPF); Renal Epithelial Cells Urine 0-1/HPF (0-1/HPF); Squamous Epithelial Cell Urine 1-5 /HPF (0-5/HPF); Transitional Epi Cells Urine 1-5/HPF (0-5/HPF); WBC Urine 10-30/HPF (0-5/HPF)
[2021-06-02 15:36] LABS: Bacteria Urine Moderate (10-30); Culture Indicated Urine Specimen Cultured; Hyaline Casts Urine 1-5/LPF
--- NOTE | 2021-06-02 16:08 | ED.GENADULT ---
HPI - General Adult General Chief complaint: Urogenital-Female Stated complaint: UTI Time Seen by Provider: 06/02/21 16:01 Source: patient Mode of arrival: Ambulatory History of Present Illness HPI narrative: 46-year-old female here for evaluation of less than 24 hours of urinary frequency, burning, urgency and lower back discomfort. Has had some nausea but no vomiting. States she has never had a urinary tract infection in the past. No diarrhea. No vaginal bleeding. No fevers. Related Data Home Medications Medication Instructions Recorded Confirmed cetirizine 10 mg capsule (Zyrtec) 10 mg PO DAILY 07/13/20 05/14/21 fluticasone propionate 50 2 spray INTRANASAL DAILY 07/13/20 05/14/21 mcg/actuation nasal spray,suspension (Flonase Allergy Relief) cholestyramine (with sugar) 4 gram PO BID g 04/17/21 05/14/21 oral powder flax seed 1000mg PO 04/17/21 05/14/21 Previous Rx's Medication Instructions Recorded lisinopril 20 mg tablet 20 mg PO DAILY #90 tab 03/24/21 nadolol 40 mg tablet 40 mg PO BID #180 tab 03/24/21 bupropion HCl 300 mg 24 hr tablet, 300 mg PO QAM #90 tab 04/17/21 extended release (Wellbutrin XL) venlafaxine 37.5 mg 37.5 mg PO DAILY #60 cap 04/17/21 capsule,extended release 24 hr phenazopyridine 100 mg tablet 100 mg PO TID PRN #6 tab 06/02/21 (Pyridium) sulfamethoxazole 800 1 tab PO BID 3 Days #6 tab 06/02/21 mg-trimethoprim 160 mg tablet (Bactrim DS) Allergies Allergy/AdvReac Type Severity Reaction Status Date / Time labetalol AdvReac Intermediate Itchy rash Verified 06/02/21 14:14 Review of Systems Constitutional Comments: No fevers Cardiovascular Comments: No chest pain Respiratory Comments: No shortness of breath Gastrointestinal Gastrointestinal: Reports as per HPI Genitourinary Genitourinary: Reports as per HPI Integumentary/Breasts Skin/Breast: Reports system reviewed and no additional complaints, except as documented Neurologic Neurologic: Reports system reviewed and no additional complaints, except as documented Hematologic/Lymphatic On Anticoagulants: No Patient History Medical History Anxiety Arthritis Chronic low back pain Depression Diverticulitis Eczema History of diverticulitis History of migraine headaches HLD (hyperlipidemia) HTN (hypertension) Insomnia due to medical condition Neuropathy Obesity (BMI 30-39.9) Obstructive sleep apnea, adult Pain Snoring Surgical History H/O left wrist surgery History of tubal ligation (10/26/08) Hx laparoscopic cholecystectomy (07/13/20) Family History Family/Other Coronary artery disease Social History marital status: (to Jens) details: lives in [place] number of children: 2 (sons, Gavino, Wilfred) household members: spouse and children lives independently: Yes caregiver/support person: No housing: apartment pets and animals: No education level: college (some) Smoking Status: Never smoker alcohol intake: current Smoking Status: Never smoker alcohol intake frequency: holidays/special occasions only Substance Use Type: does not use Exam Initial Vital Signs Initial Vital Signs: Vital Signs Temperature 97.8 F 06/02/21 14:10 Pulse Rate 79 06/02/21 14:10 Respiratory Rate 17 06/02/21 14:10 Blood Pressure 155/99 H 06/02/21 14:10 Pulse Oximetry 98 06/02/21 14:10 Const General: cooperative and healthy appearing [facility] Head: normal to inspection and normocephalic Resp Auscultation: clear to auscultation bilaterally Cardio Rate: regular rate Rhythm: regular rhythm Back/Spine/Pelvis Other: No lower back discomfort, no CVA tenderness Skin General: no rashes or lesions noted Neuro General: patient alert, patient awake, patient oriented x3 and moves all extremities Extrem General: normal to inspection Psych Appearance: grossly normal and well kempt Course Orders Ordered: ED Orders 06/02/21 14:30 Urinalysis and Microscopic Stat Urine Culture Stat Discontinued Medications Phenazopyridine HCl (Phenazopyridine 100 Mg Tablet) 100 mg PO NOW ONE Stop: 06/02/21 16:10 Last Admin: 06/02/21 16:25 Dose: 100 mg Documented by: TAYLER Trimethoprim/Sulfamethoxazole (Trimeth/Sulfa 160/800 (Ds) Tablet) 1 tab PO NOW ONE Stop: 06/02/21 16:09 Last Admin: 06/02/21 16:25 Dose: 1 tab Documented by: TAYLER Vital Signs Vital signs: Vital Signs - 8 hr 06/02/21 14:10 Temperature 97.8 F Pulse Rate 79 Respiratory Rate 17 Blood Pressure 155/99 H Pulse Oximetry 98 Medical Decision Making Lab Data Lab results reviewed: Yes I reviewed the patient's lab results. Labs: Lab Results 06/02/21 Range/Units 14:30 Urine Color Yellow Urine Appearance Clear Urine pH 5.0 (4.5-8.0) Ur Specific [place] >=1.030 H (1.000-1.035) Urine Protein 3+ H (Negative) Urine Glucose (UA) Negative (Negative) g/dL Urine Ketones Trace H (NEGATIVE) Urine Occult Blood 3+ H (Negative) Urine Nitrate Positive H (Negative) Urine Bilirubin Negative (NEGATIVE) Urine Urobilinogen 0.2 (0.2) E.U./dL Ur Leukocyte Esterase Trace H (NEGATIVE) Urine RBC 30-100/hpf H (0-5/HPF) Urine WBC 10-30/hpf H (0-5/HPF) Ur Squamous Epith Cells 1-5 /hpf (0-5/HPF) Ur Transition Epith Cell 1-5/hpf (0-5/HPF) Ur Renal Epithelial Cell 0-1/hpf (0-1/HPF) Calcium Oxalate Crystal Few H Urine Bacteria Moderate (10-30) H (None) Hyaline Casts 1-5/lpf (None) Ur Culture Indicated? Specimen cultured MDM Narrative Medical decision making narrative: Patient's history and physical and labs today consistent with a urinary tract infection. Will start her on antibiotics. Urine cultures pending at the time of discharge. She was given return precautions and follow-up instructions. She expressed understanding agreement. Discharge Plan Departure Patient Disposition: Home Clinical Impression: Urinary tract infection Instructions: DI for Urinary Tract Infection (UTI) Activity Restrictions/Additional Instructions: A urine culture was pending at the time your discharge. We will contact you if we need to change any antibiotics. Until then start taking the antibiotics as directed. Return to the emergency department for any new or worsening symptoms Prescriptions: New sulfamethoxazole-trimethoprim [Bactrim DS] 800-160 mg tablet 1 tab PO BID 3 Days Qty: 6 RF: 0 phenazopyridine [Pyridium] 100 mg tablet 100 mg PO TID PRN (Reason: pain) Qty: 6 RF: 0 No Action lisinopril 20 mg tablet 20 mg PO DAILY Qty: 90 RF: 3 nadolol 40 mg tablet 40 mg PO BID Qty: 180 RF: 3 flax seed 1000mg PO RF: 0 cholestyramine (with sugar) 4 gram powder PO BID RF: 0 bupropion HCl [Wellbutrin XL] 300 mg tablet extended release 24 hr 300 mg PO QAM Qty: 90 RF: 0 venlafaxine 37.5 mg capsule,extended release 24hr 37.5 mg PO DAILY Qty: 60 RF: 1 fluticasone propionate [Flonase Allergy Relief] 50 mcg/actuation [place],Suspension 2 spray INTRANASAL DAILY RF: 0 Zyrtec 10 mg Capsule 10 mg PO DAILY RF: 0 Referrals: Edgar Espinoza ARNP [Primary Care Provider] -
[2021-06-02] MEDS: PHENAZOPYRIDINE 100 MG TABLET PO (16:25)
[2021-06-02] MEDS: TRIMETH/SULFA 160/800 (DS) TABLET 1 TAB PO (16:25)
== END 2021-06-02 16:42 | disposition home or self-care (01) ==
PROVIDERS: Emergency Provider Emergency Medicine; PCP Registered Nurse Diabetes Educator
DX: N39.0 Urinary tract infection, site not specified (principal); M54.5 Low back pain; R11.0 Nausea
CPT/HCPCS: 81001; 87086; 99283

== ENCOUNTER → 2022-04-13 10:19 | Outpatient (CLI) | payer OTHER, MEDICAID, SELFPAY ==
[2020-09-25 21:30] VITALS: BMI 36.8
[2022-04-13 11:05] LABS: Hematocrit 39.1 % (36-46); Hemoglobin 13.5 g/dL (12.0-16.0); Mean Corpuscular HGB Conc 34.6 % (30-36); Mean Corpuscular Volume 83.8 fL (80-100); Platelet Count 245 X10^3/uL (150-400); Red Blood Cell Count 4.66 X10^6/uL (4.0-5.2); Red Cell Distribution Width 14.1 % (11.6-14.8); White Blood Cell Count 5.8 X10^3/uL (4.5-11.0)
[2022-04-13 11:29] LABS: Alanine Aminotransferase 32 IU/L (<35); Albumin 4.1 g/dL (3.5-5.0); Albumin Globulin Ratio 1.2 (1.0-2.8); Alkaline Phosphatase 35 U/L (38-126); Aspartate Aminotransferase 28 IU/L (14-36); BUN Creatinine Ratio 26.9 (6-22); Bilirubin Total 0.4 mg/dL (0.2-1.3); Blood Urea Nitrogen 18 mg/dL (7-17); Calcium 8.7 mg/dL (8.4-10.2); Carbon Dioxide 25 mmol/L (22-32); Chloride 107 mmol/L (98-107); Cholesterol 218 mg/dL (140-199); Estimated Glomerular Filt Rate > 60 mL/min (>60); Globulin 3.5 g/dL (1.7-4.1); Glucose 108 mg/dL (70-100); HDL Cholesterol 38 mg/dL (40-60); HEMOLYSIS < 15 (0-50); LDL Cholesterol Calculated 145 mg/dL (<100); Potassium 4.3 mmol/L (3.4-5.1); Sodium 138 mmol/L (137-145); Total Protein 7.6 g/dL (6.3-8.2); Triglycerides 175 mg/dL (35-150)
== END ==
PROVIDERS: PCP Registered Nurse Diabetes Educator; Referring Provider Registered Nurse Diabetes Educator; Visit Provider Registered Nurse Diabetes Educator
DX: E78.5 Hyperlipidemia, unspecified (principal); I10 Essential (primary) hypertension
CPT/HCPCS: 36415; 80053; 80061; 84443; 85027

== ENCOUNTER 2022-06-10 18:13 | Emergency (ER) | payer OTHER, MEDICAID, SELFPAY ==
[2020-09-25 21:30] VITALS: BMI 36.8
[2022-06-10] VITALS (9 sets, daily range): BP systolic 110–124; BP diastolic 64–77; PULSE 70–84; RESP 10–19; TEMP 36; O2SAT 92–99; BMI 36.8
[2022-06-10 18:52] LABS: Add Manual Diff / Slide Review NO; Basophils Absolute Auto 100 /uL (0-100); Eosinophils Absolute Auto 200 /uL (0-450); Hematocrit 43.9 % (36-46); Hemoglobin 15.1 g/dL (12.0-16.0); Lymphocytes Absolute Auto 2700 /uL (1100-4500); Lymphocytes Percent Auto 28.6 % (25-40); Mean Corpuscular HGB Conc 34.3 % (30-36); Mean Corpuscular Hemoglobin 28.7 PG (26-34); Mean Corpuscular Volume 83.5 fL (80-100); Monocytes Absolute Auto 700 /uL (0-900); Neutrophils Absolute Auto 5800 /uL (1500-7000); Neutrophils Percent Auto 61.4 % (50-75); Platelet Count 249 X10^3/uL (150-400); Red Blood Cell Count 5.26 X10^6/uL (4.0-5.2); Red Cell Distribution Width 13.7 % (11.6-14.8); White Blood Cell Count 9.5 X10^3/uL (4.5-11.0)
[2022-06-10 18:58] LABS: PTT Partial Thromboplastin Tim 26 SECONDS (26-36)
[2022-06-10 19:03] LABS: Alanine Aminotransferase 26 IU/L (<35); Albumin 4.4 g/dL (3.5-5.0); Albumin Globulin Ratio 1.1 (1.0-2.8); Alkaline Phosphatase 41 U/L (38-126); Aspartate Aminotransferase 24 IU/L (14-36); BUN Creatinine Ratio 17.6 (6-22); Bilirubin Total 0.5 mg/dL (0.2-1.3); Blood Urea Nitrogen 15 mg/dL (7-17); Calcium 9.4 mg/dL (8.4-10.2); Carbon Dioxide 28 mmol/L (22-32); Chloride 101 mmol/L (98-107); Estimated Glomerular Filt Rate > 60 mL/min (>60); Globulin 3.9 g/dL (1.7-4.1); Glucose 104 mg/dL (70-100); HEMOLYSIS < 15 (0-50); Lipase 189 U/L (23-300); Potassium 4.2 mmol/L (3.4-5.1); Sodium 138 mmol/L (137-145); Total Protein 8.3 g/dL (6.3-8.2)
--- NOTE | 2022-06-10 22:51 | DI.CT.S_ITS ---
PROCEDURE: CT ABDOMEN PELVIS W CON INDICATIONS: IV contrast only/abdominal pain TECHNIQUE: After the administration of intravenous contrast, axial sections acquired from the lung bases to the pubic symphysis. Coronal and sagittal reformats were performed. For radiation dose reduction, the following was used: automated exposure control, adjustment of mA and/or kV according to patient size. COMPARISON: [facility], CT, CT ABDOMEN PELVIS W CON, 07/13/2020, 2:07. FINDINGS: Image quality: Bases Lung bases: Unremarkable. Heart: No significant findings. ABDOMEN: Liver: No masses Gallbladder: Surgically absent. Biliary ducts: Appropriate caliber post cholecystectomy. Pancreas: Normal. Spleen: Normal size. Adrenal Glands: No nodules. Kidneys and Ureters: Normal enhancement. No hydronephrosis or hydroureter. No calcifications. Stomach and Bowel: Stomach, small bowel loops, and colon are unremarkable. Normal appendix. Peritoneum: No abnormal intraperitoneal fluid. No free air. Ventral Wall: No hernias. Abdominal Nodes: Pericaval, periportal shotty lymph nodes are redemonstrated. There are a few small mesenteric nodes. These are nonspecific and stable. No new bulky adenopathy in the retroperitoneum or mesentery. Vessels: Aorta and inferior vena cava are normal in size. PELVIS: Pelvic Organs: Normal uterus and ovaries. No suspicious adnexal mass. Bladder: Partially decompressed and normal wall thickness. Pelvic Nodes: No enlarged lymph nodes. Miscellaneous: No hernias are seen. Bones: Disc degeneration L5-S1. Degenerative endplate spurs in the thoracic spine. IMPRESSION: 1. No acute process. 2. Interval cholecystectomy and umbilical hernia repair. Dictated by: Anabella Goldman M.D. on 06/11/2022 at 0:25 Approved by: Anabella Goldman M.D. on 06/11/2022 at 0:29
--- NOTE | 2022-06-10 22:52 | ED_ITS ---
HPI - Abdominal Pain General Chief Complaint: Abdominal Pain Stated Complaint: ABD pain, Diarrhea, Indigestion Time Seen by Provider: 06/10/22 22:25 Source: patient Mode of arrival: Ambulatory History of Present Illness HPI narrative: Patient here with . Complaints constant 1 week of sharp burning crampy generalized everywhere abdominal pain. Does not radiate to the back. Does at nighttime radiate it to her throat. Otherwise no chest pain. Again no chest pain. No dyspnea. No nausea or vomiting. Patient has history of IBS which she states has diarrhea daily but however in the past week has had intense amount of watery diarrhea. Nonbloody. No sick contacts. At this time 7/10 abdominal pain. is driving. No history of EGD. Had colonoscopy a long time ago. Unknown history of diverticulosis. No cough cold congestion fever chills Related Data Home Medications Medication Instructions Recorded Confirmed cetirizine 10 mg capsule (Zyrtec) 10 mg PO DAILY 07/13/20 04/21/22 fluticasone propionate 50 2 spray intranasal DAILY 07/13/20 04/21/22 mcg/actuation nasal spray,suspension (Flonase Allergy Relief) cholestyramine (with sugar) 4 gram PO BID 04/17/21 04/21/22 oral powder flax seed 1000mg PO 04/17/21 04/21/22 Previous Rx's Medication Instructions Recorded bupropion HCl 300 mg 24 hr tablet, 300 mg PO QAM #90 tabs 04/21/22 extended release (Wellbutrin XL) buspirone 5 mg tablet 5 mg PO BID #60 tabs 04/21/22 lisinopril 20 mg tablet 20 mg PO DAILY #90 tabs 04/21/22 nadolol 40 mg tablet 40 mg PO BID #180 tabs 04/21/22 sumatriptan succinate 50 mg tablet See Rx Instructions PO .COMPLEX 04/21/22 (Imitrex) #20 tabs trazodone 50 mg tablet 50 mg PO BEDTIME PRN insomnia #30 04/21/22 tabs Allergies Allergy/AdvReac Type Severity Reaction Status Date / Time labetalol AdvReac Intermediate Itchy rash Verified 06/10/22 18:22 Review of Systems Review of Systems Narrative: GENERAL: Denies chills, fatigue, malaise, fever, sweats. HEENT: Denies sinus pain, ear pain, sore throat RESPIRATORY: Denies dyspnea, cough CARDIOVASCULAR: Denies chest pain, palpitations GASTROINTESTINAL: Denies nausea, vomiting, positive for diarrhea and abdominal pain, negative blood in stool : Denies dysuria, frequency, hematuria MUSCULOSKELETAL: denies muscle or bony pain SKIN: Denies rash, skin lesions NEUROLOGIC: Denies weakness, numbness ROS Unobtainable: All systems reviewed & are unremarkable except as noted in HPI and below Patient History Medical History Anxiety Arthritis Chronic low back pain Depression Diverticulitis Dyslipidemia Eczema History of diverticulitis History of migraine headaches HLD (hyperlipidemia) HTN (hypertension) Impaired fasting blood sugar Insomnia due to medical condition Neuropathy Obesity (BMI 30-39.9) Obstructive sleep apnea, adult Pain Snoring Surgical History H/O left wrist surgery History of tubal ligation (10/26/08) Hx laparoscopic cholecystectomy (07/13/20) Family History Family/Other Coronary artery disease Social History marital status: (to Jens) details: lives in [place] number of children: 2 (sons, Gavino, Wilfred) household members: spouse and children lives independently: Yes caregiver/support person: No housing: apartment pets and animals: No education level: college (some) Smoking Status: Never smoker alcohol intake: current Smoking Status: Never smoker alcohol intake frequency: holidays/special occasions only Substance Use Type: does not use Exam Narrative Exam Narrative: GENERAL: in no distress, not toxic not dyspneic HEAD: Normocephalic. EYES: Pupils equal round No scleral icterus. ENT: Mucous membranes moist. NECK: Trachea midline. CARDIOVASCULAR: Regular rate and rhythm without murmurs RESPIRATORY: Clear to auscultation. Breath sounds equal bilaterally. No wheezes, rales, or rhonchi. GASTROINTESTINAL: Abdomen soft, reproducible diffuse tenderness but no peritoneal signs, no pain out of portion to exam. Bowel sounds are present. EXTREMITIES: No gross deformities. NEURO: AOx4. SKIN: Warm and dry PSYCH: Not anxious, is cooperative Initial Vital Signs Initial Vital Signs: Vital Signs Temperature 96.8 F L 06/10/22 18:22 Pulse Rate 75 06/10/22 18:22 Respiratory Rate 15 06/10/22 18:22 Blood Pressure 117/64 06/10/22 18:22 Pulse Oximetry 97 06/10/22 18:22 Oxygen Delivery Method 06/10/22 18:22 Course Course Course Narrative: No new issues during course of stay Orders Ordered: ED Orders 06/10/22 18:26 EKG-12 Lead Stat 06/10/22 18:35 Complete Blood Count AUTO DIFF Stat Comprehensive Metabolic Panel Stat Lipase Stat Partial Thromboplastin Time Stat Prothrombin Time INR Stat Troponin & CK Cardiac Panel Stat 06/10/22 22:51 CT abdomen pelvis w con Stat 06/11/22 00:15 Respiratory Panel (Film Array) Stat Discontinued Medications Hydromorphone HCl (Hydromorphone 1 Mg Inj) 1 mg IV NOW ONE Stop: 06/10/22 22:52 Last Admin: 06/10/22 23:08 Dose: 1 mg Documented By: CHRISTIANA Sodium Chloride (Normal Saline 0.9%) 1,000 mls @ 1,000 mls/hr IV BOLUS ONE Stop: 06/10/22 23:50 Last Infusion: 06/11/22 00:15 Dose: 0 mls/hr Documented By: Admin: 06/10/22 23:09 Dose: 1,000 mls/hr Documented By: CHRISTIANA Ondansetron HCl (Ondansetron 4 Mg/2 Ml Inj) 4 mg IV NOW ONE Stop: 06/10/22 22:52 Last Admin: 06/10/22 23:08 Dose: 4 mg Documented By: CHRISTIANA Reevaluation(s) Reevaluation #1: Reviewed results with patient and . Patient pain-free at this time. No diarrhea. Patient in no distress using her iPad. Patient agrees with treatment plan and follow up with her strategic sourcing manager. Not toxic at discharge. Worsening of her IBS. Which is chronic diarrhea. Time: 01:01 Vital Signs Vital signs: Vital Signs - 8 hr 06/10/22 18:22 06/10/22 20:44 06/10/22 20:50 Temperature 96.8 F L Pulse Rate 75 84 Respiratory Rate 15 Blood Pressure 117/64 120/73 Pulse Oximetry 97 97 Oxygen Delivery Method Room Air 06/10/22 20:50 06/10/22 21:00 06/10/22 21:00 Temperature Pulse Rate 73 70 Respiratory Rate 17 Blood Pressure 114/75 Pulse Oximetry 98 97 Oxygen Delivery Method 06/10/22 21:30 06/10/22 21:30 06/10/22 22:00 Temperature Pulse Rate 70 Respiratory Rate 18 Blood Pressure 110/69 116/72 Pulse Oximetry 97 Oxygen Delivery Method 06/10/22 22:00 06/10/22 22:30 06/10/22 22:30 Temperature Pulse Rate 73 74 Respiratory Rate 19 19 Blood Pressure 124/77 Pulse Oximetry 98 99 Oxygen Delivery Method 06/10/22 23:00 06/10/22 23:00 06/10/22 23:30 Temperature Pulse Rate 71 77 Respiratory Rate 18 10 L Blood Pressure 111/66 Pulse Oximetry 95 92 Oxygen Delivery Method 06/11/22 00:00 06/11/22 00:30 06/11/22 01:00 Temperature Pulse Rate 74 73 73 Respiratory Rate 16 16 19 Blood Pressure Pulse Oximetry 91 90 L 92 Oxygen Delivery Method 06/11/22 01:02 06/11/22 01:02 Temperature Pulse Rate 79 73 Respiratory Rate 21 22 Blood Pressure 106/62 Pulse Oximetry 92 92 Oxygen Delivery Method MDM - Abdominal Pain Differential Diagnosis Differential diagnosis: Likely abdominal pain, acute appendicitis, calculus of kidney, diverticulitis, pancreatitis and small bowel obstruction Lab Data Result diagrams: 06/10/22 18:35 06/10/22 18:35 Labs: Lab Results 06/10/22 06/10/22 06/10/22 Range/Units 18:35 18:35 18:35 WBC 9.5 (4.5-11.0) X10^3/uL RBC 5.26 H (4.0-5.2) X10^6/uL Hgb 15.1 (12.0-16.0) g/dL Hct 43.9 (36-46) % MCV 83.5 (80-100) fL MCH 28.7 (26-34) PG MCHC 34.3 (30-36) % RDW 13.7 (11.6-14.8) % Plt Count 249 (150-400) X10^3/uL Neut % (Auto) 61.4 (50-75) % Lymph % (Auto) 28.6 (25-40) % Navarro % (Auto) 7.0 (3-14) % Eos % (Auto) 2.0 (2-4) % Baso % (Auto) 1.0 (0-2) % Neut # (Auto) 5800 (1527-4130) /uL Lymph # (Auto) 2700 (5012-0790) /uL Navarro # (Auto) 700 (0-900) /uL Eos # (Auto) 200 (0-450) /uL Baso # (Auto) 100 (0-100) /uL PT 12.0 (10.1-12.7) SECONDS INR 1.0 (0.9-1.3) APTT 26 (26-36) SECONDS Sodium 138 (137-145) mmol/L Potassium 4.2 (3.4-5.1) mmol/L Chloride 101 (98-107) mmol/L Carbon Dioxide 28 (22-32) mmol/L BUN 15 (7-17) mg/dL Creatinine 0.85 (0.52-1.04) mg/dL Estimated GFR > 60 (>60) mL/min BUN/Creatinine Ratio 17.6 (6-22) Glucose 104 H (70-100) mg/dL Calcium 9.4 (8.4-10.2) mg/dL Total Bilirubin 0.5 (0.2-1.3) mg/dL AST 24 (14-36) IU/L ALT 26 (<35) IU/L Alkaline Phosphatase 41 (38-126) U/L Total Creatine Kinase (30-135) U/L CK-MB (CK-2) CK-MB (CK-2) Rel Index Troponin I (0.01-0.034) ng/mL Total Protein 8.3 H (6.3-8.2) g/dL Albumin 4.4 (3.5-5.0) g/dL Globulin 3.9 (1.7-4.1) g/dL Albumin/Globulin Ratio 1.1 (1.0-2.8) Lipase 189 (23-300) U/L Chlamy pneumoniae PCR (Not Detect) Adenovirus (PCR) (Not Detect) B. pertussis DNA (PCR) (Not Detecte) B.parapertussis DNA PCR (Not Detecte) Coronavirus OC43 (PCR) (Not Detect) Coronavirus HKU1 (PCR) (Not Detect) Coronavirus 229E (PCR) (Not Detect) SARS-CoV-2 (PCR) (Not Detecte) Coronavirus NL63 (PCR) (Not Detect) Human Metapneumovir PCR (Not Detect) Influenza Type A (PCR) (Not Detect) Influenza Type B (PCR) (Not Detect) M. pneumoniae (PCR) (Not Detect) Parainfluenza 1 (PCR) (Not Detect) Parainfluenza 2 (PCR) (Not Detect) Parainfluenza 3 (PCR) (Not Detect) Parainfluenza 4 (PCR) (Not Detect) RSV (PCR) (Not Detect) Entero/Rhino (PCR) (Not Detect) 06/10/22 06/11/22 Range/Units 18:35 00:15 WBC (4.5-11.0) X10^3/uL RBC (4.0-5.2) X10^6/uL Hgb (12.0-16.0) g/dL Hct (36-46) % MCV (80-100) fL MCH (26-34) PG MCHC (30-36) % RDW (11.6-14.8) % Plt Count (150-400) X10^3/uL Neut % (Auto) (50-75) % Lymph % (Auto) (25-40) % Navarro % (Auto) (3-14) % Eos % (Auto) (2-4) % Baso % (Auto) (0-2) % Neut # (Auto) (8701-8472) /uL Lymph # (Auto) (2155-6720) /uL Navarro # (Auto) (0-900) /uL Eos # (Auto) (0-450) /uL Baso # (Auto) (0-100) /uL PT (10.1-12.7) SECONDS INR (0.9-1.3) APTT (26-36) SECONDS Sodium (137-145) mmol/L Potassium (3.4-5.1) mmol/L Chloride (98-107) mmol/L Carbon Dioxide (22-32) mmol/L BUN (7-17) mg/dL Creatinine (0.52-1.04) mg/dL Estimated GFR (>60) mL/min BUN/Creatinine Ratio (6-22) Glucose (70-100) mg/dL Calcium (8.4-10.2) mg/dL Total Bilirubin (0.2-1.3) mg/dL AST (14-36) IU/L ALT (<35) IU/L Alkaline Phosphatase (38-126) U/L Total Creatine Kinase 69 (30-135) U/L CK-MB (CK-2) TNP CK-MB (CK-2) Rel Index TNP Troponin I < 0.012 (0.01-0.034) ng/mL Total Protein (6.3-8.2) g/dL Albumin (3.5-5.0) g/dL Globulin (1.7-4.1) g/dL Albumin/Globulin Ratio (1.0-2.8) Lipase (23-300) U/L Chlamy pneumoniae PCR Not detected (Not Detect) Adenovirus (PCR) Not detected (Not Detect) B. pertussis DNA (PCR) Not detected (Not Detecte) B.parapertussis DNA PCR Not detected (Not Detecte) Coronavirus OC43 (PCR) Not detected (Not Detect) Coronavirus HKU1 (PCR) Not detected (Not Detect) Coronavirus 229E (PCR) Not detected (Not Detect) SARS-CoV-2 (PCR) Not detected (Not Detecte) Coronavirus NL63 (PCR) Not detected (Not Detect) Human Metapneumovir PCR Not detected (Not Detect) Influenza Type A (PCR) Not detected (Not Detect) Influenza Type B (PCR) Not detected (Not Detect) M. pneumoniae (PCR) Not detected (Not Detect) Parainfluenza 1 (PCR) Not detected (Not Detect) Parainfluenza 2 (PCR) Not detected (Not Detect) Parainfluenza 3 (PCR) Not detected (Not Detect) Parainfluenza 4 (PCR) Not detected (Not Detect) RSV (PCR) Not detected (Not Detect) Entero/Rhino (PCR) Not detected (Not Detect) Point of care testing: Urine Dip Bedside Urine Glucose Negative Bedside Urine Bilirubin - Negative Bedside Urine Ketone - Negative Urine Specific Bena 1.030 Bedside Urine Occult Blood - Negative Bedside Urine pH 6.0 Bedside Urine Protein - Negative Bedside Urine Urobilinogen - Negative Bedside Urine Nitrite - Negative Bedside Urine Leukocytes - Negative Esterase Imaging Data CT scan - abdomen/pelvis: Radiologist's Impression: [address] [address] [address] Scan Report Signed Patient: Sonya Boyle MR#: [id number] : 1975 Acct:[id number] Age/Sex: 47 / F Date of Service: 06/10/22 Loc: ED Accession Number: [id number] ?? Procedure: CT abdomen pelvis w con Ordering Provider: Valdo Golden MD PROCEDURE:? CT ABDOMEN PELVIS W CON ? INDICATIONS:? IV contrast only/abdominal pain ? TECHNIQUE:? After the administration of intravenous contrast, axial sections acquired from the lung bases to the pubic symphysis.? Coronal and sagittal reformats were performed.? For radiation dose reduction, the following was used:? automated exposure control, adjustment of mA and/or kV according to patient size.? ? COMPARISON:? [facility], CT, CT ABDOMEN PELVIS W CON, 07/13/2020, 2:07. ? FINDINGS:? Image quality:? Bases ? Lung bases:? Unremarkable. Heart:? No significant findings. ? ABDOMEN: Liver:? No masses Gallbladder:? Surgically absent. Biliary ducts:? Appropriate caliber post cholecystectomy. Pancreas:? Normal. Spleen:? Normal size. Adrenal Glands:? No nodules. Kidneys and Ureters:? Normal enhancement.? No hydronephrosis or hydroureter.? No calcifications. ? Stomach and Bowel:? Stomach, small bowel loops, and colon are unremarkable.? Normal appendix. Peritoneum:? No abnormal intraperitoneal fluid.? No free air.? ? Ventral Wall: ? No hernias.? Abdominal Nodes:? Pericaval, periportal shotty lymph nodes are redemonstrated.? There are a few small mesenteric nodes.? These are nonspecific and stable.? No new bulky adenopathy in the retroperitoneum or mesentery. Vessels:? Aorta and inferior vena cava are normal in size.? ? PELVIS: Pelvic Organs:? Normal uterus and ovaries.? No suspicious adnexal mass. Bladder:? Partially decompressed and normal wall thickness. Pelvic Nodes: No enlarged lymph nodes.? Miscellaneous: No hernias are seen. ? ? ? Bones:? Disc degeneration L5-S1. Degenerative endplate spurs in the thoracic spine.? ? ? IMPRESSION: ? 1. No acute process. ? 2. Interval cholecystectomy and umbilical hernia repair.? ? ? Dictated by: Anabella Goldman M.D. on 06/11/2022 at 0:25 ? ? Approved by: Anabella Goldman M.D. on 06/11/2022 at 0:29 ? ECG Data Interpretation: Normal sinus rhythm rate [address] elevation or depression MDM Narrative Medical decision making narrative: Appropriate for discharge home. Exam and laboratory studies are reassuring. Patient nontoxic. Pain control time of discharge. This could be worsening of IBS. Patient and agree for discharge home and follow up with her strategic sourcing manager. Not toxic at discharge. Discharge Plan Departure Patient Disposition: Home Clinical Impression: Abdominal pain Instructions: DI for Abdominal Pain-Adult Activity Restrictions/Additional Instructions: No driving or operating machinery tonight. May continue home medications. Be sure to keep well hydrated with diarrhea. Please call your GI doctor tomorrow to make appointment for re-evaluation and possible endoscopy/colonoscopy. Return if worse if any questions or concerns. Return if any increased pain or any fever or any able to take your medications Prescriptions: No Action flax seed 1000mg PO Rx Instructions: Take one a day by mouth for dry eye. cholestyramine (with sugar) 4 gram powder PO BID lisinopril 20 mg tablet 20 mg PO DAILY Qty: 90 3RF nadolol 40 mg tablet 40 mg PO BID Qty: 180 3RF sumatriptan succinate [Imitrex] 50 mg tablet See Rx Instructions PO .COMPLEX Qty: 20 2RF Rx Instructions: take 1 tab at onset of headache; if no relief may repeat 1 tab after at least 2 hrs; max = 4 tabs/24 hr PO buspirone 5 mg tablet 5 mg PO BID Qty: 60 1RF bupropion HCl [Wellbutrin XL] 300 mg tablet extended release 24 hr 300 mg PO QAM Qty: 90 3RF trazodone 50 mg tablet 50 mg PO BEDTIME PRN (Reason: insomnia) Qty: 30 2RF Rx Instructions: If 1 tab inadequate, may take 2 tabs at bedtime as needed fluticasone propionate [Flonase Allergy Relief] 50 mcg/actuation Webster,Suspension 2 spray INTRANASAL DAILY Zyrtec 10 mg Capsule 10 mg PO DAILY Referrals: Edgar Espinoza ARNP [Primary Care Provider] - Visit Report Forms: Patient Portal/API
[2022-06-10 23:03] LABS: Creatine Kinase 69 U/L (30-135)
[2022-06-10] MEDS: ONDANSETRON 4 MG/2 ML INJ IV (23:08)
[2022-06-10] MEDS: HYDROMORPHONE 1 MG INJ IV (23:08)
[2022-06-10] MEDS: SODIUM CHLORIDE 0.9% 1,000 ML 1000 ML IV (23:09)
[2022-06-10 23:16] LABS: Troponin I < 0.012 ng/mL (0.01-0.034)
[2022-06-11] VITALS: PULSE 74; RESP 16; O2SAT 91
[2022-06-11 00:30] VITALS: PULSE 73; RESP 16; O2SAT 90
[2022-06-11 01:00] VITALS: PULSE 73; RESP 19; O2SAT 92
[2022-06-11 01:02] VITALS: BP 106/62; PULSE 73; PULSE 79; RESP 21; RESP 22; O2SAT 92
[2022-06-11 01:11] LABS: Adenovirus Not Detected (Not Detect); B. parapertussis Not Detected (Not Detecte); Bordetella pertussis Not Detected (Not Detecte); Chlamydophila pneumoniae Not Detected (Not Detect); Coronavirus 229E Not Detected (Not Detect); Coronavirus HKU1 Not Detected (Not Detect); Coronavirus NL 63 Not Detected (Not Detect); Coronavirus OC43 Not Detected (Not Detect); Human Metapneumovirus Not Detected (Not Detect); Human Rhinovirus/Enterovirus Not Detected (Not Detect); Influenza A Not Detected (Not Detect); Influenza B Not Detected (Not Detect); Mycoplasma pneumoniae Not Detected (Not Detect); Parainfluenza Virus 1 Not Detected (Not Detect); Parainfluenza Virus 2 Not Detected (Not Detect); Parainfluenza Virus 3 Not Detected (Not Detect); Parainfluenza Virus 4 Not Detected (Not Detect); Respiratory Syncytial Virus Not Detected (Not Detect); SARS- CoV-2 Not Detected (Not Detecte)
== END 2022-06-11 01:05 | disposition home or self-care (01) ==
PROVIDERS: Emergency Provider Emergency Medicine; PCP Registered Nurse Diabetes Educator
DX: R10.84 Generalized abdominal pain (principal)
CPT/HCPCS: 36415; 74177; 80053; 81003; 82550; 82553; 83690; 84484; 85025; 85610; 85730; 87633; 93005; 96361; 96374; 96375; 99284; J1170; J2405; Q9967

== ENCOUNTER → 2022-06-30 10:48 | Outpatient (CLI) | payer OTHER, MEDICAID, SELFPAY ==
[2020-09-25 21:30] VITALS: BMI 36.8
--- NOTE | 2022-06-30 | DI.MG.S_ITS ---
BILATERAL DIGITAL SCREENING MAMMOGRAM 3D/2D WITH CAD: 06/30/2022 CLINICAL: Routine screening. Comparison is made to exams dated: 04/19/2021 mammogram - [facility], 01/04/2019 mammogram, and 12/29/2018 mammogram - [facility]. Both breasts are heterogeneously dense, which may obscure small masses (category c / 51-75% glandular tissue). Current study was also evaluated with a Computer Aided Detection (CAD) system. There is a new oval focal asymmetry in the right breast at 11 o'clock middle depth. No other significant masses, calcifications, or other findings are seen in either breast. IMPRESSION: INCOMPLETE: NEEDS ADDITIONAL IMAGING EVALUATION The new oval focal asymmetry in the right breast resembles a cyst and is indeterminate. Additional views with possible ultrasound are recommended. Based on Tyrer-Cuzick model (a risk assessment model), the patient's lifetime risk is 24.9% and her 10 year risk is 5.9%. If a patient has an elevated risk, a more comprehensive evaluation should be considered and/or a referral to a genetic counselor. The [employer], [employer], and NCCN Guidelines advise the consideration of Breast MRI as an adjunct to screening mammography in patients whose Lifetime risk to develop breast cancer is 20% or higher. This exam was interpreted at Station ID: [id number]. NOTE: For mammograms, a report in lay terms will be sent to the patient. Approximately 15% of breast malignancies will not be visualized mammographically. In the management of a palpable breast mass, a negative mammogram must not discourage biopsy of a clinically suspicious lesion. Electronically Signed By: Mak multani/felton:06/30/2022 12:45:47 letter sent: Additional Imaging Needed ACR BI-RADS Category 0: Incomplete 3340F
== END ==
PROVIDERS: PCP Registered Nurse Diabetes Educator; Referring Provider Registered Nurse Diabetes Educator; Visit Provider Registered Nurse Diabetes Educator
DX: Z12.31 Encounter for screening mammogram for malignant neoplasm of breast (principal)
CPT/HCPCS: 77063; 77067

== ENCOUNTER → 2022-07-15 11:39 | Outpatient (CLI) | payer OTHER, MEDICAID, SELFPAY ==
[2020-09-25 21:30] VITALS: BMI 36.8
--- NOTE | 2022-07-15 | DI.US.S_ITS ---
LIMITED ULTRASOUND OF RIGHT BREAST: 07/15/2022 CLINICAL: Patient returns today to evaluate an asymmetry in the right breast. Comparison is made to exams dated: 07/15/2022 mammogram, 06/30/2022 mammogram, 04/19/2021 mammogram - [facility], 01/04/2019 mammogram, and 12/29/2018 mammogram - [facility]. Real-time ultrasound of the right breast 6 o'clock, 12 o'clock, and retroareolar regions was performed. Antoine scale images of the real-time examination were reviewed. No ultrasound correlate for the mass in the right breast central to the nipple posterior depth. IMPRESSION: SUSPICIOUS OF MALIGNANCY No mass or cyst identified on ultrasound. A second expanded search was preformed by the advanced manufacturing technician. Exam findings were discussed with the patient. Report of strong family history. Focal asymmetry seen on mammogram in the central right breast posterior depth is at low suspicion for malignancy. -A stereotactic biopsy is recommended. This exam was interpreted at Station ID: [id number]. Electronically Signed By: Davin Sears M.D. [facility]/:07/15/2022 13:36:25 letter sent: Biopsy Required Ultrasound BI-RADS: 4a Low suspicion for malignancy
--- NOTE | 2022-07-15 | DI.MG.S_ITS ---
UNILATERAL RIGHT DIGITAL DIAGNOSTIC MAMMOGRAM 3D/2D WITH ADDITIONAL VIEWS: 07/15/2022 CLINICAL: Additional evaluation requested from prior study. Comparison is made to exams dated: 06/30/2022 mammogram - [facility], 01/04/2019 mammogram - [facility], 04/19/2021 mammogram - [facility], and 12/29/2018 mammogram - [facility]. The right breast is heterogeneously dense, which may obscure small masses (category c / 51-75% glandular tissue). There is a 1.1 cm oval focal asymmetry with an obscured and circumscribed margin in the right breast central to the nipple middle depth. No other significant masses or calcifications are seen in the breast. IMPRESSION: INCOMPLETE: NEEDS ADDITIONAL IMAGING EVALUATION The 1.1 cm oval focal asymmetry in the right breast resembles a cyst and is indeterminate. A targeted ultrasound is recommended and will immediately follow. Based on Tyrer-Cuzick model (a risk assessment model), the patient's lifetime risk is 24.9% and her 10 year risk is 5.9%. If a patient has an elevated risk, a more comprehensive evaluation should be considered and/or a referral to a genetic counselor. The [employer] [employer], [employer], and NCCN Guidelines advise the consideration of Breast MRI as an adjunct to screening mammography in patients whose Lifetime risk to develop breast cancer is 20% or higher. This exam was interpreted at Station ID: [id number]. NOTE: For mammograms, a report in lay terms will be sent to the patient. Approximately 15% of breast malignancies will not be visualized mammographically. In the management of a palpable breast mass, a negative mammogram must not discourage biopsy of a clinically suspicious lesion. Electronically Signed By: Davin Sears M.D. [facility] [place]/:07/15/2022 12:24:34 ACR BI-RADS Category 0: Incomplete 3340F
== END ==
PROVIDERS: PCP Registered Nurse Diabetes Educator; Referring Provider Registered Nurse Diabetes Educator; Visit Provider Registered Nurse Diabetes Educator
DX: R92.8 Other abnormal and inconclusive findings on diagnostic imaging of breast (principal); N64.89 Other specified disorders of breast
CPT/HCPCS: 76642; 77065; G0279

== ENCOUNTER → 2023-01-26 14:06 | Outpatient (CLI) | payer OTHER, MEDICAID, SELFPAY ==
[2022-09-14 10:46] VITALS: BMI 36.8
--- NOTE | 2023-01-26 14:07 | DI.MG.S_ITS ---
UNILATERAL RIGHT DIGITAL DIAGNOSTIC MAMMOGRAM 3D/2D: 01/26/2023 CLINICAL: Post bx right. Comparison is made to exams dated: 07/21/2022 stereotactic biopsy - [facility], 07/15/2022 ultrasound, 07/15/2022 mammogram, 06/30/2022 mammogram, and 04/19/2021 mammogram - [facility]. The right breast is heterogeneously dense, which may obscure small masses (category c / 51-75% glandular tissue). There is an asymmetry in the right breast at 11 o'clock posterior depth. This is slightly less defined on the CC projection, but is otherwise not significantly changed. There is a new biopsy clip associated with the asymmetry. There has been no suspicious change. No other significant masses or calcifications are seen in the breast. 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 An ultrasound is recommended to assess for new sonographic finding. Previously, this abnormality was not seen on ultrasound. This was performed immediately following this exam. Based on Tyrer-Cuzick model (a risk assessment model), the patient's lifetime risk is 24.9% and her 10 year risk is 5.9%. If a patient has an elevated risk, a more comprehensive evaluation should be considered and/or a referral to a genetic counselor. The [employer], [employer], and NCCN Guidelines advise the consideration of Breast MRI as an adjunct to screening mammography in patients whose Lifetime risk to develop breast cancer is 20% or higher. This exam was interpreted at Station ID: [id number]. NOTE: For mammograms, a report in lay terms will be sent to the patient. Approximately 15% of breast malignancies will not be visualized mammographically. In the management of a palpable breast mass, a negative mammogram must not discourage biopsy of a clinically suspicious lesion. Electronically Signed By: Anabella goodrich/:01/26/2023 16:14:29 ACR BI-RADS Category 0: Incomplete 3340F
--- NOTE | 2023-01-26 14:07 | DI.US.S_ITS ---
LIMITED ULTRASOUND OF RIGHT BREAST: 01/26/2023 CLINICAL: Patient returns today to evaluate a focal asymmetry in the right breast. Comparison is made to exams dated: 01/26/2023 mammogram - [facility], 07/21/2022 stereotactic biopsy - [facility], 07/15/2022 ultrasound, 07/15/2022 mammogram, and 06/30/2022 mammogram - [facility]. Ultrasound of the right breast 6-7 o'clock region was performed. Antoine scale images of the real-time examination were reviewed. No significant abnormalities were seen sonographically in the right breast. Specifically, no finding to correspond to the patient's biopsy proven fibroadenoma or the biopsy marker. IMPRESSION: NEGATIVE There are no suspicious sonographic findings and no evidence of malignancy. Return to annual mammogram screening schedule is recommended. Findings and recommendations were conveyed to the patient at time of exam. This exam was interpreted at Station ID: [id number]. Electronically Signed By: Anabella goodrich/:01/26/2023 16:16:09 letter sent: Normal Exam Ultrasound BI-RADS: 1 Negative
== END ==
PROVIDERS: PCP Registered Nurse Diabetes Educator; Referring Provider Registered Nurse Diabetes Educator; Visit Provider Registered Nurse Diabetes Educator
DX: R92.8 Other abnormal and inconclusive findings on diagnostic imaging of breast (principal); N60.11 Diffuse cystic mastopathy of right breast; D24.1 Benign neoplasm of right breast
CPT/HCPCS: 76642; 77065; G0279

== ENCOUNTER → 2023-03-31 10:33 | Outpatient (CLI) | payer OTHER, MEDICAID, SELFPAY ==
[2022-09-14 10:46] VITALS: BMI 36.8
--- NOTE | 2023-03-31 10:34 | DI.RAD.S_ITS ---
PROCEDURE: XR LUMBAR SPINE 2-3V INDICATIONS: LUMBOSACRAL RADICULOPATHY TECHNIQUE: 3 views of the lumbar spine were acquired. COMPARISON: None. FINDINGS: Bones: 5 drg-[id number]-sdadsha vertebrae are present. There is 5 millimeter anterolisthesis of L4 on L5. Loss of disc height, degenerative endplate changes and bilateral facet arthrosis throughout lumbar spine is seen most notably at L5-S1 level. No vertebral body compression fractures. No suspicious bony lesions. Soft tissues: Overlying bowel gas pattern is normal. No suspicious soft tissue calcifications. IMPRESSION: No acute compression fracture. Grade 1 anterolisthesis of L4 on L5. Degenerative disc disease throughout lumbar spine. Dictated by: Kole Claire M.D. on 03/31/2023 at 12:14 Approved by: Kole Claire M.D. on 03/31/2023 at 12:15
== END ==
PROVIDERS: PCP Registered Nurse Diabetes Educator; Referring Provider Registered Nurse Diabetes Educator; Visit Provider Registered Nurse Diabetes Educator
DX: M51.16 Intervertebral disc disorders with radiculopathy, lumbar region (principal); M51.17 Intervertebral disc disorders with radiculopathy, lumbosacral region; M43.16 Spondylolisthesis, lumbar region; M48.00 Spinal stenosis, site unspecified
CPT/HCPCS: 72100

== ENCOUNTER → 2023-04-16 09:47 | Outpatient (CLI) | payer OTHER, MEDICAID, SELFPAY ==
[2022-09-14 10:46] VITALS: BMI 36.8
[2023-04-16 11:06] LABS: Hematocrit 38.8 % (36-46); Hemoglobin 13.2 g/dL (12.0-16.0); Mean Corpuscular HGB Conc 34.1 % (30-36); Platelet Count 198 X10^3/uL (150-400); Red Blood Cell Count 4.56 X10^6/uL (4.0-5.2); Red Cell Distribution Width 14.3 % (11.6-14.8); White Blood Cell Count 5.6 X10^3/uL (4.5-11.0)
[2023-04-16 11:30] LABS: Alanine Aminotransferase 39 IU/L (<35); Albumin Globulin Ratio 1.2 (1.0-2.8); Alkaline Phosphatase 35 U/L (38-126); Aspartate Aminotransferase 29 IU/L (14-36); BUN Creatinine Ratio 19.8 (6-22); Bilirubin Total 0.5 mg/dL (0.2-1.3); Blood Urea Nitrogen 18 mg/dL (7-17); Calcium 8.9 mg/dL (8.4-10.2); Carbon Dioxide 29 mmol/L (22-32); Chloride 103 mmol/L (98-107); Cholesterol 224 mg/dL (140-199); Estimated Glomerular Filt Rate > 60 mL/min (>60); Globulin 3.4 g/dL (1.7-4.1); Glucose 96 mg/dL (70-100); HDL Cholesterol 32 mg/dL (40-60); HEMOLYSIS < 15 (0-50); LDL Cholesterol Calculated 129 mg/dL (<100); Potassium 4.1 mmol/L (3.4-5.1); Sodium 138 mmol/L (137-145); Total Protein 7.4 g/dL (6.3-8.2); Triglycerides 317 mg/dL (35-150)
[2023-04-17 08:29] LABS: Labcorp Hemoglobin (Hb) A1c 5.8 % (4.8-5.6)
== END ==
PROVIDERS: PCP Registered Nurse Diabetes Educator; Referring Provider Registered Nurse Diabetes Educator; Visit Provider Registered Nurse Diabetes Educator
DX: E78.5 Hyperlipidemia, unspecified (principal); I10 Essential (primary) hypertension; R73.01 Impaired fasting glucose
CPT/HCPCS: 36415; 80053; 80061; 83036; 84443; 85027

== ENCOUNTER → 2023-07-22 07:51 | Outpatient (CLI) | payer OTHER, MEDICAID, SELFPAY ==
[2022-09-14 10:46] VITALS: BMI 36.8
--- NOTE | 2023-07-22 07:52 | DI.MRI.S_ITS ---
PROCEDURE: MR LUMBAR SPINE WO CON INDICATIONS: reeval. HAS COMPLETED 6 PT SESSIONS TECHNIQUE: Noncontrast sagittal T1 spin echo and T2 fast echo, sagittal STIR, and T2 fast spin echo through the lumbar spine. In cases with scoliosis, additional coronal T2 fast spin echo may be performed. COMPARISON: [facility], MR, L-SPINE WITHOUT CONTRAST, 03/26/2014, 18:16. [facility], CT, CT ABDOMEN PELVIS W CON, 06/10/2022, 23:17. [facility], CR, XR LUMBAR SPINE 2-3V, 03/31/2023, 10:35. FINDINGS: Image quality: Excellent. Alignment and Curvature: There is normal bony alignment. Bone Marrow: Marrow is of normal overall signal. No acute vertebral body compression fractures. Spinal Cord: Conus medullaris terminates at the L1 level. Visualized cord demonstrates normal signal and size. Paraspinous Soft Tissues: No paravertebral masses. T12-L1: Normal appearance. L1-L2: No significant abnormality is seen. L2-L3: The disc height and disk signal are relatively well-preserved. Mild to moderate disc bulge is seen, which is eccentric to the left. There is a left foraminal disc protrusion. At least moderate facet hypertrophy is seen. There is at least moderate bilateral neural foraminal narrowing. Mild central canal narrowing is seen. These imaging findings have progressed compared to the prior study. L3-L4: The disc height and disk signal are relatively well-preserved. Moderate generalized disc bulge is seen. An annular fissure can be seen on the left laterally, as on series 5, image 20 and on series 4, image 13. Moderate facet joint hypertrophy is seen. There is at least moderate bilateral neural foraminal narrowing, right worse than left. There is a degree of compression seen upon the exiting nerve roots. Moderate central canal narrowing is seen. These imaging findings have progressed compared to the prior study. L4-L5: The disc height and disk signal are relatively well-preserved. Mild generalized disc bulge is seen. Moderate to prominent facet hypertrophy is seen at this level. There is moderate left-sided and no right-sided neural foraminal narrowing. Moderate central canal narrowing is seen. These degenerative changes are worse than in 2014. L5-S1: At least moderate loss of disc height and disc signal can be seen. Reactive marrow endplate changes are seen, which are hyperintense on T1-weighted and T2-weighted imaging and most consistent with fatty metaplasia (Modic type II changes). At least moderate disc bulge is seen, which is eccentric to the left. There is a left subarticular/foraminal disc osteophyte protrusion seen. At least moderate facet hypertrophy is seen. There is mild right-sided and moderate to severe left-sided neural foraminal narrowing. There is a degree of compression seen upon the exiting right L5 nerve root. Mild central canal narrowing is seen. These degenerative changes are mildly progressed compared to the prior MRI. IMPRESSION: Multiple levels of lumbar spine degenerative change can be seen, which are worst at L5-S1. The degenerative changes are progressed compared to 2014. Dictated by: Russell Solomon M.D. on 07/22/2023 at 13:20 Approved by: Russell Solomon M.D. on 07/22/2023 at 13:24
== END ==
PROVIDERS: PCP Registered Nurse Diabetes Educator; Referring Provider Registered Nurse Diabetes Educator; Visit Provider Registered Nurse Diabetes Educator
DX: M47.816 Spondylosis without myelopathy or radiculopathy, lumbar region (principal); M54.16 Radiculopathy, lumbar region; M53.3 Sacrococcygeal disorders, not elsewhere classified; M54.31 Sciatica, right side
CPT/HCPCS: 72148

== ENCOUNTER 2023-09-08 08:09 | Outpatient (CLI) | payer OTHER, MEDICAID, SELFPAY ==
[2023-07-22 08:42] VITALS: BMI 36.8
[2023-09-08] VITALS (9 sets, daily range): BP systolic 95–126; BP diastolic 57–73; PULSE 63–71; RESP 14–18; TEMP 36; O2SAT 95–98
--- NOTE | 2023-09-08 08:11 | DI.RAD.S_ITS ---
PROCEDURE: PAIN L INTERLAMINAR/CAUDAL INJ INDICATIONS: SPINAL STENOSIS COMPARISON: None. FINDINGS: Fluoroscopic spot filming was performed to verify placement of spinal needles at the L5-S1 level(s), as labeled on the films. Appropriate location(s) of the needle tip(s) was confirmed by injection of iodinated contrast. IMPRESSION: Intraoperative fluoroscopic images as above. Dictated by: Antoni Santos M.D. on 09/08/2023 at 10:00 Approved by: Antoni Santos M.D. on 09/08/2023 at 10:00
[2023-09-08] MEDS: MIDAZOLAM 2 MG/2 ML VIAL 1 MG IV ×2 (09:02→09:07)
[2023-09-08] MEDS: iopamidoL 15 ML VIAL 3 ML INJ (09:04)
[2023-09-08] MEDS: DEXAMETHASONE 10 MG/ML VIAL INJ (09:04)
--- NOTE | 2023-09-08 12:30 | P.PCN_ITS ---
Date/Time/Diagnoses Date of procedure: 09/08/23 Time of procedure: 09:00 Procedure Notes Physician: John Guan Total Fluoroscopy time (seconds): 10 Total sedation minutes: 11 Procedure in detail & Post-procedure care: L5-S1 Interlaminar Epidural Steroid Injection Indications: Sonya is presenting for treatment of lumbar radiculopathy with low back and leg pain. Preoperative diagnosis: Lumbar radiculopathy Postoperative diagnosis: Same Focused Examination: Ax3 Mood and affect are normal Vital Signs: VSS ASA: 2 Consent: Following review of allergies and potential side effects/complications, including, but not necessarily limited to, infection, allergic reaction, local tissue breakdown, stroke, temporary or permanent nerve injury, paralysis, and possible , the patient indicated that they understood and agreed to proceed.? An informed consent document was signed by the patient, witnessed by a nurse and placed in the patient's chart.? Additionally, other treatment options including medications and physical therapy were reviewed with the patient. All questions were answered. Site was then marked. Anesthesia: After review of previous anesthetic history and IV conscious sedation, the patient was deemed safe to proceed with today's procedure with IV conscious sedation. IV sedation was accomplished with midazolam 2 mg administered by the RN after order by Dr. Guan. Sedation was titrated to patient comfort during the course of the procedure. Patient remained responsive to all verbal commands. Position: Prone Monitoring: NIBP, Pulse oximetry, 3 lead EKG Needle used: 18 G 3.5? Tuohy Contrast: Isovue 300M Injectate: Dexamethasone 10 mg with 1% lidocaine 2 mL Technique: The skin was prepped with chloraprep and then draped in a sterile fashion. Time out was performed as per protocol. Oxygen applied via NC. Skin and subcutaneous structures of the needle entry site was then infiltrated with 3 mL of lidocaine 1%. Under AP, lateral and contralateral oblique fluoroscopic control, the Tuohy needle was guided into the L5-S1 epidural space. The space was accessed with loss of resistance technique. Isovue 300M was then injected and the spread was consistent with the epidural space. There was no evidence for intravascular or intrathecal uptake. After negative aspiration, the above- mentioned injectate was then slowly administered and the needle withdrawn. The patient expressed no unusual discomfort or paresthesias during the injection. Band-Aids applied to injection sites. EBL: less than 1 ml Complications: None Post Procedure: Patient was taken to the recovery and monitored. The patient was provided a Pain Log to continue to record the patient's response to the target- specific procedure prior to the patient's follow-up visit with the referring physician. Patient was stable upon discharge. Detailed post procedure instructions were provided. Patient was asked to call in the event of worsening pain, fever, weakness, numbness or bladder or bowel incontinence.
== END 2023-09-08 09:42 | disposition home or self-care (01) ==
LOC: RAD 08:10
PROVIDERS: Family Provider Registered Nurse Diabetes Educator; PCP Registered Nurse Diabetes Educator; Referring Provider Anesthesiology; Visit Provider Anesthesiology
DX: M54.16 Radiculopathy, lumbar region (principal)
CPT/HCPCS: 62323; 99152; J1100; J2250

== ENCOUNTER → 2023-09-30 08:28 | Outpatient (CLI) | payer OTHER, MEDICAID, SELFPAY ==
[2023-07-22 08:42] VITALS: BMI 36.8
== END ==
PROVIDERS: Family Provider Registered Nurse Diabetes Educator; PCP Registered Nurse Diabetes Educator; Referring Provider Anesthesiology; Visit Provider Anesthesiology
DX: M54.16 Radiculopathy, lumbar region (principal)
CPT/HCPCS: 95886; 95910

== ENCOUNTER → 2024-02-24 10:38 | Outpatient (CLI) | payer OTHER, MEDICAID, SELFPAY ==
[2023-07-22 08:42] VITALS: BMI 36.8
--- NOTE | 2024-02-24 10:39 | DI.RAD.S_ITS ---
PROCEDURE: XR FOOT RT MIN 3V INDICATIONS: eval R foot pain TECHNIQUE: 3 views of the foot were acquired. COMPARISON: None. FINDINGS: Bones: Posterior and plantar calcaneus enthesophyte. Mild degenerative changes of the midfoot. No acute fracture or dislocation. Soft tissues: No tibiotalar joint effusion. Achilles tendon appears normal. IMPRESSION: Degenerative changes as described above. Dictated by: Hanna Murray M.D. on 02/24/2024 at 12:53 Approved by: Hanna Murray M.D. on 02/24/2024 at 12:55
== END ==
PROVIDERS: Family Provider Registered Nurse Diabetes Educator; PCP Registered Nurse Diabetes Educator; Referring Provider Registered Nurse Diabetes Educator; Visit Provider Registered Nurse Diabetes Educator
DX: M79.671 Pain in right foot (principal); M72.2 Plantar fascial fibromatosis
CPT/HCPCS: 73630

== ENCOUNTER → 2024-05-11 11:56 | Outpatient (CLI) | payer OTHER, MEDICAID, SELFPAY ==
[2023-07-22 08:42] VITALS: BMI 36.8
[2024-05-11 12:52] LABS: Hematocrit 38.1 % (36-46); Hemoglobin 12.9 g/dL (12.0-16.0); Mean Corpuscular HGB Conc 33.8 % (30-36); Mean Corpuscular Hemoglobin 29.3 PG (26-34); Mean Corpuscular Volume 86.8 fL (80-100); Platelet Count 205 X10^3/uL (150-400); Red Blood Cell Count 4.39 X10^6/uL (4.0-5.2); Red Cell Distribution Width 15.5 % (11.6-14.8); White Blood Cell Count 5.4 X10^3/uL (4.5-11.0)
[2024-05-11 13:23] LABS: Alanine Aminotransferase 22 IU/L (<35); Albumin Globulin Ratio 1.3 (1.0-2.8); Alkaline Phosphatase 30 U/L (38-126); Aspartate Aminotransferase 22 IU/L (14-36); BUN Creatinine Ratio 25.9 (6-22); Bilirubin Total 0.6 mg/dL (0.2-1.3); Blood Urea Nitrogen 21 mg/dL (7-17); Calcium 8.9 mg/dL (8.4-10.2); Carbon Dioxide 26 mmol/L (22-32); Chloride 106 mmol/L (98-107); Cholesterol 215 mg/dL (140-199); Estimated Glomerular Filt Rate > 60 mL/min (>60); Globulin 3.1 g/dL (1.7-4.1); Glucose 107 mg/dL (70-100); HDL Cholesterol 40 mg/dL (40-60); HEMOLYSIS < 15 (0-50); LDL Cholesterol Calculated 129 mg/dL (<100); Potassium 4.2 mmol/L (3.4-5.1); Sodium 140 mmol/L (137-145); Total Protein 7.1 g/dL (6.3-8.2); Triglycerides 228 mg/dL (35-150)
[2024-05-11 13:41] LABS: Hemoglobin A1C% w Est Avg Glu 5.7 % (4.0-6.0)
[2024-05-11 13:50] LABS: TSH w/ Reflex to FT4 0.44 uIU/mL (0.47-4.68)
[2024-05-11 14:18] LABS: Free T4, Direct Thyroxine 1.04 ng/dL (0.78-2.19)
== END ==
PROVIDERS: Family Provider Registered Nurse Diabetes Educator; PCP Registered Nurse Diabetes Educator; Referring Provider Registered Nurse Diabetes Educator; Visit Provider Registered Nurse Diabetes Educator
DX: R73.01 Impaired fasting glucose (principal); E78.5 Hyperlipidemia, unspecified; I10 Essential (primary) hypertension
CPT/HCPCS: 36415; 80053; 80061; 83036; 84439; 84443; 85027

== ENCOUNTER → 2024-05-17 09:33 | Outpatient (CLI) | payer OTHER, MEDICAID, SELFPAY ==
[2023-07-22 08:42] VITALS: BMI 36.8
--- NOTE | 2024-05-17 09:34 | DI.RAD.S_ITS ---
PROCEDURE: XR HIP W PEL IF DONE RT 2V INDICATIONS: eval Right hip pain, no trauma TECHNIQUE: One view of the right hip was acquired. One view of the pelvis. COMPARISON: None. FINDINGS: Bones: No fractures or dislocations. No suspicious bony lesions. The visualized pelvic ring appears intact. Osteoarthritic changes to the bilateral SI joints and hip joints. Degenerative changes of the pubis symphysis. Partially visualized posterior spinal fusion of the lumbar spine. Soft tissues: No suspicious soft tissue calcifications or masses. Phleboliths in the pelvis. IMPRESSION: 1. No acute bony abnormality. 2. Osteoarthritic changes to the bilateral SI joints and hip joints. Dictated by: Clarence Hinds M.D. on 05/17/2024 at 15:42 Approved by: Clarence Hinds M.D. on 05/17/2024 at 15:46
== END ==
PROVIDERS: Family Provider Registered Nurse Diabetes Educator; PCP Registered Nurse Diabetes Educator; Referring Provider Registered Nurse Diabetes Educator; Visit Provider Registered Nurse Diabetes Educator
DX: M25.551 Pain in right hip (principal); G89.29 Other chronic pain
CPT/HCPCS: 73502

== ENCOUNTER → 2024-07-01 13:46 | Outpatient (CLI) | payer OTHER, MEDICAID, SELFPAY ==
[2023-07-22 08:42] VITALS: BMI 36.8
--- NOTE | 2024-07-01 | DI.MRI.S_ITS ---
PROCEDURE: MR LUMBAR SPINE WO CON INDICATIONS: ARTHRODESIS/LUMBAR STENOSIS TECHNIQUE: Noncontrast sagittal T1 spin echo and T2 fast echo, sagittal STIR, and T2 fast spin echo through the lumbar spine. In cases with scoliosis, additional coronal T2 fast spin echo may be performed. COMPARISON: [facility], MR, MR LUMBAR SPINE WO CON, 07/22/2023, 8:06. FINDINGS: Posterior decompression with posterior fusion instrumentation at L5-S1, new from prior exam. Grade 1 anterolisthesis of L4 on L5. Marrow signal of the lumbar spine is grossly normal for age. Vertebral body heights of the lumbar spine are well maintained. Multilevel disc bulge and disc desiccation. The conus terminates at the level of T12-L1, and is unremarkable. Right neural foraminal stenosis: None. Left neural from stenosis: Severe at L5-S1. Axial images: T11-T12: No central canal stenosis. T12-L1: No central canal stenosis. L1-2: Mild bilateral facet arthropathy. No central canal stenosis. L2-3: Mild bilateral facet arthropathy. No central canal stenosis. L3-4: Moderate right, mild left facet arthropathy. Epidural lipomatosis. Mild central canal stenosis. L4-5: Posterior disc uncovering. Moderate bilateral facet arthropathy. Mild central canal stenosis. L5-S1: Posterior decompression. No central canal stenosis. Visualized sacrum is unremarkable. No abdominal aortic aneurysm. IMPRESSION: 1. Interval posterior decompression with posterior fusion instrumentation at L5-S1. 2. Multilevel degenerative changes of the lumbar spine, most pronounced at L5-S1, where there is severe left neural foraminal stenosis, grossly unchanged from prior exam. 3. Mild central canal stenosis at L3-4 and L4-5. Dictated by: Hanna Murray M.D. on 07/03/2024 at 13:01 Approved by: Hanna Murray M.D. on 07/03/2024 at 13:12
--- NOTE | 2024-07-01 | DI.CT.S_ITS ---
PROCEDURE: CT LUMBAR SPINE WO CON INDICATIONS: ARTHRODESIS/LUMBAR STENOSIS TECHNIQUE: Noncontrast 3 mm thick sections acquired from the T12 level to the sacrum. Sagittal and coronal reformats were constructed. For radiation dose reduction, the following was used: automated exposure control. COMPARISON: [facility], MR, MR LUMBAR SPINE WO CON, 07/01/2024, 14:34. [facility], MR, MR LUMBAR SPINE WO CON, 07/22/2023, 8:06. FINDINGS: Image quality: Excellent. Bones: Status post L5-S1 posterior fusion and left warner laminectomy without hardware complication. There is normal bony alignment. No acute vertebral body compression fractures. No suspicious lytic or blastic bony lesions. No pars defects. Mild-moderate multilevel facet arthropathy, most conspicuous at L4-L5 and L5-S1. Unchanged grade 1 anterolisthesis of L4 on L5 (4 mm) when compared to 07/22/2023. Central canal: At least moderate central bony canal stenosis at L4-L5 (3/64). Additional findings are better evaluated on the same day 07/01/2024 MRI lumbar spine exam. Foramina: Severe bony foraminal stenosis at the left L5-S1 level (6/40). Additional findings are better evaluated on the same day 07/01/2024 MRI lumbar spine exam. Soft tissues: No retroperitoneal masses or hematomas. Status post prior cholecystectomy. No abdominal aortic aneurysm. IMPRESSION: 1. No acute lumbar vertebral compression fractures. 2. Status post L5-S1 posterior fusion without hardware complication. 3. Severe central bony canal stenosis at L4-L5 and severe bony foraminal stenosis at the left L5-S1 level. Please see the same day 07/01/2024 MRI lumbar spine without contrast exam for further details. Dictated by: Keaton Grossman M.D. on 07/02/2024 at 18:32 Approved by: Keaton Grossman M.D. on 07/02/2024 at 18:45
== END ==
LOC: CT 13:46
PROVIDERS: Family Provider Registered Nurse Diabetes Educator; PCP Registered Nurse Diabetes Educator; Referring Provider Orthopaedic Surgery; Visit Provider Orthopaedic Surgery
DX: M48.062 Spinal stenosis, lumbar region with neurogenic claudication (principal); M48.07 Spinal stenosis, lumbosacral region; M47.817 Spondylosis without myelopathy or radiculopathy, lumbosacral region; M47.816 Spondylosis without myelopathy or radiculopathy, lumbar region; Z98.1 Arthrodesis status
CPT/HCPCS: 72131; 72148

== ENCOUNTER → 2024-07-06 10:07 | Outpatient (CLI) | payer OTHER, MEDICAID, SELFPAY ==
[2023-07-22 08:42] VITALS: BMI 36.8
[2024-07-06 11:08] LABS: Alanine Aminotransferase 21 IU/L (<35); Albumin 4.1 g/dL (3.5-5.0); Albumin Globulin Ratio 1.3 (1.0-2.8); Alkaline Phosphatase 30 U/L (38-126); Aspartate Aminotransferase 19 IU/L (14-36); BUN Creatinine Ratio 17.6 (6-22); Bilirubin Total 0.4 mg/dL (0.2-1.3); Bilirubin Unconjugated 0.1 mg/dL (0.0-1.1); Blood Urea Nitrogen 24 mg/dL (7-17); Calcium 9.7 mg/dL (8.4-10.2); Carbon Dioxide 22 mmol/L (22-32); Chloride 105 mmol/L (98-107); Cholesterol 197 mg/dL (140-199); Estimated Glomerular Filt Rate 47 mL/min (>60); Globulin 3.2 g/dL (1.7-4.1); Glucose 95 mg/dL (70-100); HDL Cholesterol 40 mg/dL (40-60); HEMOLYSIS < 15 (0-50); LDL Cholesterol Calculated 111 mg/dL (<100); Potassium 4.8 mmol/L (3.4-5.1); Sodium 136 mmol/L (137-145); Total Protein 7.3 g/dL (6.3-8.2); Triglycerides 229 mg/dL (35-150)
[2024-07-06 11:12] LABS: Rheumatoid Factor < 8.6 IU/mL (<12.0)
[2024-07-06 11:22] LABS: Hemoglobin A1C% w Est Avg Glu 5.4 % (4.0-6.0)
[2024-07-06 11:28] LABS: Erythrocyte Sedimentation Rate 23 MM/HR (0-20)
[2024-07-06 11:30] LABS: Free T4, Direct Thyroxine 1.01 ng/dL (0.78-2.19)
[2024-07-06 11:44] LABS: Thyroid Stimulating Hormone 0.874 uIU/mL (0.47-4.68)
[2024-07-07 08:11] LABS: Triiodothyronine T3 Total 119 ng/dL (71-180)
== END ==
PROVIDERS: Family Provider Registered Nurse Diabetes Educator; PCP Registered Nurse Diabetes Educator; Referring Provider Registered Nurse Diabetes Educator; Visit Provider Registered Nurse Diabetes Educator
DX: M25.50 Pain in unspecified joint (principal); M53.3 Sacrococcygeal disorders, not elsewhere classified; M47.816 Spondylosis without myelopathy or radiculopathy, lumbar region; M48.061 Spinal stenosis, lumbar region without neurogenic claudication; Z98.1 Arthrodesis status; R73.01 Impaired fasting glucose; E78.5 Hyperlipidemia, unspecified; R79.89 Other specified abnormal findings of blood chemistry; Z51.81 Encounter for therapeutic drug level monitoring; R74.8 Abnormal levels of other serum enzymes
CPT/HCPCS: 36415; 80048; 80061; 80076; 81374; 83036; 84439; 84443; 84480; 85651; 86038; 86140; 86200; 86430

== ENCOUNTER 2024-08-29 09:00 | Outpatient (RCR) | payer OTHER, MEDICAID, SELFPAY ==
[2023-07-22 08:42] VITALS: BMI 36.8
--- NOTE | 2024-07-04 18:23 | PT.OIE ---
Current Diagnoses Unilateral primary osteoarthritis, right hip (07/04/24) Pain in left hip (07/04/24) Low back pain, unspecified (07/04/24) Difficulty in walking, not elsewhere classified (07/04/24) Abnormal posture (07/04/24) Weakness (07/04/24) Past Medical History (Last Reviewed 06/20/24 @ 14:13 by John Guan MD) Anxiety Arthritis Chronic low back pain Depression Diverticulitis Dyslipidemia Eczema History of diverticulitis History of migraine headaches HLD (hyperlipidemia) HTN (hypertension) Impaired fasting blood sugar Insomnia due to medical condition Lumbar radiculopathy Lumbar spinal stenosis Lumbar spondylosis Neuropathy Obesity (BMI 30-39.9) Obstructive sleep apnea, adult Pain SI (sacroiliac) joint dysfunction Snoring Past Surgical History (Last Reviewed 06/20/24 @ 14:13 by John Guan MD) H/O left wrist surgery History of tubal ligation (10/26/08) Hx laparoscopic cholecystectomy (07/13/20) Status post lumbar spinal fusion Visit Care Team Role Provider Type HERB Momin Attending Provider Advanced Machine Stacker Family Provider Primary Care Provider Referring Provider Specialty: Medical Address: [address] [place] [address] Email: [email or web address] Physical Therapy Initial Evaluation PT-OP-A Visit Information Start: 06/29/24 17:14 Freq: Status: Active Protocol: Document 07/04/24 11:19 [facility] (Rec: 07/04/24 18:21 [facility] [id number]) Out-Patient Physical Therapy Visit Information Visit Information Visit Type Initial Evaluation Visit Start Time 11:23 Visit Stop Time 12:05 Visit Number 10/29 Number of INDUSTRIAL ELECTRICAL ENGINEER Visits 0 PT-OP-B Current Condition Start: 06/29/24 17:14 Freq: Status: Active Protocol: Document 07/04/24 11:19 [facility] (Rec: 07/04/24 18:21 [facility] [id number]) Current Condition History of Current Condition Current Complaints back pain, hip pain, leg numbness/tingling History of Current Condition Pt reports she has had more prominant R hip pain in the past year and with recent weather change, L hip has also been painful. Is still having a lot of nerve pain despite back surgery. She is still having a lot of numbness and tingling. She got only 30% improvement w/surgery. SHe will be following up w/spinal surgeon soon. Has had injections and theyd idn't help. Had PT prior to surgery and that didn't help. Pain is just getting worse and worse. She is trying to put off a RHONDA as long as possible. Pain is lat hip B. Does have CMC jt pain B and has had L wrist fusion along w/ neck pain and numbness/shoulder pain. hx of tubal ligation in 2008, hernia repair and gallbladder in 2019. First problem w/back was 2009 without known cause and bulging disc was found and injured back on job in 2012 terabren[employer] dolano stand from desk and got caught on computer cord and fell onto back. pt has numbness and tingling from LB down buttocks, post leg, and into plantar and lat foot. this has been since 2012. Has been unable to work since 2012 . Right now walks around [employer] for maybe 15 min max and has to stop d/t pain. Had EMG also prior to surgery. Prior Treatments and Tests Lumbar MRI: MPRESSION: 1. Interval posterior decompression with posterior fusion instrumentation at L5- S1. 2. Multilevel degenerative changes of the lumbar spine, most pronounced at L5-S1, where there is severe left neural foraminal stenosis, grossly unchanged from prior exam. 3. Mild central canal stenosis at L3-4 and L4-5. Lumbar CT: 1. No acute lumbar vertebral compression fractures. 2. Status post L5-S1 posterior fusion without hardware complication. 3. Severe central bony canal stenosis at L4-L5 and severe bony foraminal stenosis at the left L5-S1 level. Please see the same day 07/01/2024 MRI lumbar spine without contrast exam for further details. xray to hip: IMPRESSION: 1. No acute bony abnormality. 2. Osteoarthritic changes to the bilateral SI joints and hip joints. Treatment Goals Patient/Caregiver Goals be able to move a little easier and be in less constant pain, be able to walk to start to exercise to help back and help lose weight PT-OP-C Subjective Start: 06/29/24 17:14 Freq: Status: Active Protocol: Document 07/04/24 11:19 [facility] (Rec: 07/04/24 18:21 [facility] [id number]) Patient Questionnaires Lower Extremity Functional Scale LEFS Score 25/80 OP-PT Pain Assessment Location B hip pain Pain Location Details lat hips Scale Used best: 5/10 worst:9/10 Description Aching,With Movement Description- Other numb Frequency Constant Pain Duration next day I'm down and out Radiating Location BLE numbness/tingling Variations/Patterns LBP also Pain Aggravating Factors Activity,Standing,Sitting, Walking,Stair Climbing,Lifting Other Pain Aggravating Factors rolling, laying on hip Pain Alleviating Factors Heat,Medication PT-OP-D Balance Start: 06/29/24 17:14 Freq: Status: Active Protocol: Document 07/04/24 11:19 [facility] (Rec: 07/04/24 18:21 [facility] [id number]) Balance Tests Single Limb Standing Single Limb- Right 10 sec w/lots of deviation Single Limb- Left 2 sec PT-OP-F Manual Assessment Start: 06/29/24 17:14 Freq: Status: Active Protocol: Document 07/04/24 11:19 [facility] (Rec: 07/04/24 18:21 [facility] [id number]) Manual Assessments Soft Tissue Assessment Soft Tissue Mobility Assessment tightness B spine and QL PT-OP-G Mobility & Gait Start: 06/29/24 17:14 Freq: Status: Active Protocol: Document 07/04/24 11:19 [facility] (Rec: 07/04/24 18:21 [facility] [id number]) OP Gait Assessment Comments Gait Comments very rigid trunk, dec push off B, lat lean over LE B w/ wt bearing PT-OP-J Posture/Palpation/Skin Start: 06/29/24 17:14 Freq: Status: Active Protocol: Document 07/04/24 11:19 [facility] (Rec: 07/04/24 18:21 [facility] [id number]) Posture Evaluation Catherine Postural Classification System Actherine Postural Classifications Posterior/Anterior Lumbar Protective Mechanism Left AP 0 Lumbar Protective Mechanism Right AP 1 Lumbar Protective Mechanism Left PA 0 Lumbar Protective Mechanism Right PA 0 Comments Posture Comments rotated L, pelvis shifted R, slightly turned out R foot, R iliac crest higher but equal greater trochanter, excessive lower lumbar lordosis, inc kyphosis PT-OP-K Range of Motion Start: 06/29/24 17:14 Freq: Status: Active Protocol: Document 07/04/24 11:19 [facility] (Rec: 07/04/24 18:21 [facility] [id number]) Lumbar Spine Range of Motion Lumbar Spine Active Percentage Flexion 50 Extension 40 Rotation Left 40 Rotation Right 25 Lateral Flexion Left 40 Lateral Flexion Right 15 ROM Limitations Pain Hip Goniometric Range of Motion Hip Right Active Flexion w/Knee Flexed 78 Straight Leg Raise 48 Internal Rotation 25 External Rotation 21 Left Active Flexion w/Knee Flexed 80 Straight Leg Raise 61 Internal Rotation 23 External Rotation 20 PT-OP-L Special Tests Start: 06/29/24 17:14 Freq: Status: Active Protocol: Document 07/04/24 11:19 [facility] (Rec: 07/04/24 18:21 [facility] [id number]) Special Tests Hip Special Tests obers Comments positive B slump Comments neg ext and slump sit-mild HS tension B PT-OP-M Strength Start: 06/29/24 17:14 Freq: Status: Active Protocol: Document 07/04/24 11:19 [facility] (Rec: 07/04/24 18:21 [facility] [id number]) Hip Strength Hip Manual Muscle Testing Right Flexion (L2) 4 Good Abduction 3 Fair Adduction 3- Fair- External Rotation 3+ Fair+ Internal Rotation 4+ Good+ Left Flexion (L2) 4 Good Abduction 3+ Fair+ Adduction 3- Fair- External Rotation 3+ Fair+ Internal Rotation 4+ Good+ Knee Strength Knee Manual Muscle Testing Right Flexion (S2) 5 Normal Extension (L3) 4 Good Left Flexion (S2) 5 Normal Extension (L3) 4 Good Ankle/Foot Strength Ankle and Foot Manual Muscle Testing Right Dorsiflexion (L4) 5 Normal Plantarflexion (S1) 5 Normal Left Dorsiflexion (L4) 5 Normal Plantarflexion (S1) 5 Normal Comments PF tested seated B PT-OP-Q Treatments Start: 06/29/24 17:14 Freq: Status: Active Protocol: Document 07/04/24 11:19 [facility] (Rec: 07/04/24 18:21 [facility] [id number]) Therapeutic Exercises Supine Exercises LTR Side bilateral Reps/Minutes 10 Comments cues for comfortable range and core activation to bring legs back up pelvic tilt Supine Exercise Name ant/post Reps/Minutes 12 Comments cues for comfortable range of motion Self-Care/Home Management Treatment Education Other Education 10 min: edu re: how pelvis dysfunction can inc hip pain along w/how referral from back can also cause hip pain. Edu re: how weakness of core and hip/LE could be contributing to inc pain. Edu on importance of gradual inc of ROM to improve w/chronic pain. PT-OP-T Assessment and Plan Start: 06/29/24 17:14 Freq: Status: Active Protocol: Document 07/04/24 11:19 [facility] (Rec: 07/04/24 18:21 [facility] [id number]) Physical Therapy Assessment Rehab Potential Rehabilitation Potential Good Evaluation Complexity Number of Personal Factors/Comorbidities 3 or More Number of Body Systems Impaired 4 or More Clinical Presentation at Evaluation Evolving Impairments Impairments Activity Tolerance,Balance, Functional Activities, Functional Mobility,Gait,Pain, Posture,ROM,Soft Tissue Mobility,Strength Other Concerns Barriers to Rehabilitation 12 visit limit w/insurance Goals activity Short Term Goal (STG) Pt will report being able to go for walks for 20 min at a time w/o pain greater than 5/ 10 STG Duration 08/18 Sandwich Wrapper Goal (LTG) Pt will report being able to go for walks for 35 min at a time w/o pain greater than 5/ 10 LTG Duration 09/26 strength Short Term Goal (STG) Pt will be indep w/HEP STG Duration 08/12 Snf Goal (LTG) Pt will score at least 3/5 on LPM and at least 4+/5 on all BLE MMT to show improved stability to allow greater ease with activity. LTG Duration 09/17 LEFS Impairment 25/80 Short Term Goal (STG) pt will score at least 38/80 to show improved functional ability. STG Duration 08/18 Snf Goal (LTG) pt will score at least 48/80 to show improved functional ability. LTG Duration 09/26 Assessment Summary Assessment Pt presents w/B hip pain, LBP, and BLE numbness/tingling that is chronic >10 years lasting w/ worsening of B hip pain in past year. She has innominate dysfunction and significantly restricted hip ROM and strength along w/dec balanec likely affecting her ability to walk, and participate in daily activities. She would benefit from skilled PT to address her deficits and improve her function in order to allow increased ability to do ADLs and start exercising w/o severe pain. Physical Therapy Plan Frequency and Duration Frequency of Treatment 1-2x/wk Duration of treatment (weeks) 12 Plan of Care Start Date 07/04/24 Plan of Care End Date 09/26/24 Therapeutic Interventions Therapeutic Interventions Balance Training,Gait Training ,Home Exercise Program,Joint Mobilizations,Manual Therapy, Neuromuscular Re-education, Patient/Caregiver Education, Self-Care/Home Management,Soft Tissue Mobilization,Taping, Therapeutic Activities, Therapeutic Exercises Modalities Cold Pack/Ice Massage,Electric Stimulation,Hot Packs, Infrared Therapy,Ultrasound Next Visit Focus/Plan Next Note Type Treatment Note Next Visit Plan review exercises; try s/l abd & clamshells and standing exercises as tolerated; try tball exercises for core; gentle manual to hips, innominate and soft tissue to back/hips
--- NOTE | 2024-07-06 10:24 | PT.OTN ---
Current Diagnoses Unilateral primary osteoarthritis, right hip (07/06/24) Pain in left hip (07/06/24) Low back pain, unspecified (07/06/24) Difficulty in walking, not elsewhere classified (07/06/24) Abnormal posture (07/06/24) Weakness (07/06/24) Physical Therapy Treatment Note PT-OP-A Visit Information Start: 06/29/24 17:14 Freq: Status: Active Protocol: Document 07/06/24 09:00 [facility] (Rec: 07/06/24 10:24 [facility] [id number]) Out-Patient Physical Therapy Visit Information Visit Information Visit Type Treatment Note Visit Start Time 09:05 Visit Stop Time 09:45 Visit Number 11/29 Number of BRAZING MACHINE OPERATOR AUTOMATIC Visits 0 PT-OP-B Current Condition Start: 06/29/24 17:14 Freq: Status: Active Protocol: Document 07/04/24 11:19 [facility] (Rec: 07/04/24 18:21 [facility] [id number]) Current Condition History of Current Condition Current Complaints back pain, hip pain, leg numbness/tingling History of Current Condition Pt reports she has had more prominant R hip pain in the past year and with recent weather change, L hip has also been painful. Is still having a lot of nerve pain despite back surgery. She is still having a lot of numbness and tingling. She got only 30% improvement w/surgery. SHe will be following up w/spinal surgeon soon. Has had injections and theyd idn't help. Had PT prior to surgery and that didn't help. Pain is just getting worse and worse. She is trying to put off a RHONDA as long as possible. Pain is lat hip B. Does have CMC jt pain B and has had L wrist fusion along w/ neck pain and numbness/shoulder pain. hx of tubal ligation in 2008, hernia repair and gallbladder in 2020. First problem w/back was 2009 without known cause and bulging disc was found and injured back on job in 2012 tera tto stand from desk and got caught on computer cord and fell onto back. pt has numbness and tingling from LB down buttocks, post leg, and into plantar and lat foot. this has been since 2012. Has been unable to work since 2012 . Right now walks around [place] for maybe 15 min max and has to stop d/t pain. Had EMG also prior to surgery. Prior Treatments and Tests Lumbar MRI: MPRESSION: 1. Interval posterior decompression with posterior fusion instrumentation at L5- S1. 2. Multilevel degenerative changes of the lumbar spine, most pronounced at L5-S1, where there is severe left neural foraminal stenosis, grossly unchanged from prior exam. 3. Mild central canal stenosis at L3-4 and L4-5. Lumbar CT: 1. No acute lumbar vertebral compression fractures. 2. Status post L5-S1 posterior fusion without hardware complication. 3. Severe central bony canal stenosis at L4-L5 and severe bony foraminal stenosis at the left L5-S1 level. Please see the same day 07/01/2024 MRI lumbar spine without contrast exam for further details. xray to hip: IMPRESSION: 1. No acute bony abnormality. 2. Osteoarthritic changes to the bilateral SI joints and hip joints. Treatment Goals Patient/Caregiver Goals be able to move a little easier and be in less constant pain, be able to walk to start to exercise to help back and help lose weight PT-OP-C Subjective Start: 06/29/24 17:14 Freq: Status: Active Protocol: Document 07/06/24 09:00 [facility] (Rec: 07/06/24 10:24 [facility] [id number]) OP-PT Subjective Patient Comments Patient Comments pt reports doing HEP 1x PT-OP-D Balance Start: 06/29/24 17:14 Freq: Status: Active Protocol: Document 07/04/24 11:19 [facility] (Rec: 07/04/24 18:21 [facility] [id number]) Balance Tests Single Limb Standing Single Limb- Right 10 sec w/lots of deviation Single Limb- Left 2 sec PT-OP-F Manual Assessment Start: 06/29/24 17:14 Freq: Status: Active Protocol: Document 07/04/24 11:19 [facility] (Rec: 07/04/24 18:21 [facility] [id number]) Manual Assessments Soft Tissue Assessment Soft Tissue Mobility Assessment tightness B spine and QL PT-OP-G Mobility & Gait Start: 06/29/24 17:14 Freq: Status: Active Protocol: Document 07/04/24 11:19 [facility] (Rec: 07/04/24 18:21 [facility] [id number]) OP Gait Assessment Comments Gait Comments very rigid trunk, dec push off B, lat lean over LE B w/ wt bearing PT-OP-J Posture/Palpation/Skin Start: 06/29/24 17:14 Freq: Status: Active Protocol: Document 07/04/24 11:19 [facility] (Rec: 07/04/24 18:21 [facility] [id number]) Posture Evaluation Catherine Postural Classification System Catherine Postural Classifications Posterior/Anterior Lumbar Protective Mechanism Left AP 0 Lumbar Protective Mechanism Right AP 1 Lumbar Protective Mechanism Left PA 0 Lumbar Protective Mechanism Right PA 0 Comments Posture Comments rotated L, pelvis shifted R, slightly turned out R foot, R iliac crest higher but equal greater trochanter, excessive lower lumbar lordosis, inc kyphosis PT-OP-K Range of Motion Start: 06/29/24 17:14 Freq: Status: Active Protocol: Document 07/04/24 11:19 [facility] (Rec: 07/04/24 18:21 [facility] [id number]) Lumbar Spine Range of Motion Lumbar Spine Active Percentage Flexion 50 Extension 40 Rotation Left 40 Rotation Right 25 Lateral Flexion Left 40 Lateral Flexion Right 15 ROM Limitations Pain Hip Goniometric Range of Motion Hip Right Active Flexion w/Knee Flexed 78 Straight Leg Raise 48 Internal Rotation 25 External Rotation 21 Left Active Flexion w/Knee Flexed 80 Straight Leg Raise 61 Internal Rotation 23 External Rotation 20 PT-OP-L Special Tests Start: 06/29/24 17:14 Freq: Status: Active Protocol: Document 07/04/24 11:19 [facility] (Rec: 07/04/24 18:21 [facility] [id number]) Special Tests Hip Special Tests obers Comments positive B slump Comments neg ext and slump sit-mild HS tension B PT-OP-M Strength Start: 06/29/24 17:14 Freq: Status: Active Protocol: Document 07/04/24 11:19 [facility] (Rec: 07/04/24 18:21 [facility] [id number]) Hip Strength Hip Manual Muscle Testing Right Flexion (L2) 4 Good Abduction 3 Fair Adduction 3- Fair- External Rotation 3+ Fair+ Internal Rotation 4+ Good+ Left Flexion (L2) 4 Good Abduction 3+ Fair+ Adduction 3- Fair- External Rotation 3+ Fair+ Internal Rotation 4+ Good+ Knee Strength Knee Manual Muscle Testing Right Flexion (S2) 5 Normal Extension (L3) 4 Good Left Flexion (S2) 5 Normal Extension (L3) 4 Good Ankle/Foot Strength Ankle and Foot Manual Muscle Testing Right Dorsiflexion (L4) 5 Normal Plantarflexion (S1) 5 Normal Left Dorsiflexion (L4) 5 Normal Plantarflexion (S1) 5 Normal Comments PF tested seated B PT-OP-Q Treatments Start: 06/29/24 17:14 Freq: Status: Active Protocol: Document 07/06/24 09:00 [facility] (Rec: 07/06/24 10:24 [facility] [id number]) Therapeutic Exercises Supine Exercises bridge Side bilateral Reps/Minutes 15x3 sec Comments cues core then glute engagement then LTR Side bilateral Reps/Minutes 12 Comments cues for comfortable range and core activation to bring legs back up pelvic tilt Supine Exercise Name ant/post Reps/Minutes 15 Comments cues for comfortable range of motion Sidelying Exercises clamshells Side bilateral Equipment Used L2 Reps/Minutes 15 ea Comments cues no rolling hip abd Side bilateral Reps/Minutes 8 ea Comments stopped d/t pain R hip Standing Exercises sit to stand Side bilateral Equipment Used mat table 21 in Reps/Minutes 10 abd Standing Exercise Name hip Side bilateral Equipment Used rail Reps/Minutes 10 Comments cues posture march Side bilateral Equipment Used rail 1 hand Reps/Minutes 10 Comments cues posture Manual Therapy Treatment Consent Patient gave verbal consent for manual Yes treatment Soft Tissue Mobilization glute Body Location R lat Mobilization Type Rolling Intensity/Depth Moderate Body Position Hooklying Comments w/ER ITB Body Location B Mobilization Type Rolling Intensity/Depth Moderate Body Position Hooklying Comments w/IR/ER Joint Mobilizations hip Body Position Hooklying Comments R hip free the ball ER c/r and inf glide w/c/r; L hip free the ball IR c/r PT-OP-T Assessment and Plan Start: 06/29/24 17:14 Freq: Status: Active Protocol: Document 07/06/24 09:00 [facility] (Rec: 07/06/24 10:24 [facility] [id number]) Physical Therapy Assessment Goals activity Short Term Goal (STG) Pt will report being able to go for walks for 20 min at a time w/o pain greater than 5/ 10 STG Duration 08/18 Penitentiary Goal (LTG) Pt will report being able to go for walks for 35 min at a time w/o pain greater than 5/ 10 LTG Duration 09/26 strength Short Term Goal (STG) Pt will be indep w/HEP STG Duration 08/12 Penitentiary Goal (LTG) Pt will score at least 3/5 on LPM and at least 4+/5 on all BLE MMT to show improved stability to allow greater ease with activity. LTG Duration 09/17 LEFS Impairment 25/80 Short Term Goal (STG) pt will score at least 38/80 to show improved functional ability. STG Duration 08/18 Insulation Sprayer Goal (LTG) pt will score at least 48/80 to show improved functional ability. LTG Duration 09/26 Assessment Summary Assessment Pt did well with exercises overall but does require cues throughout for performance and form. Unable to do s/l abd on R w/o inc hip pain. Improved R hip flex adn ER w/manual and improved IR L Physical Therapy Plan Frequency and Duration Frequency of Treatment 1-2x/wk Duration of treatment (weeks) 12 Plan of Care Start Date 07/04/24 Plan of Care End Date 09/26/24 Therapeutic Interventions Therapeutic Interventions Balance Training,Gait Training ,Home Exercise Program,Joint Mobilizations,Manual Therapy, Neuromuscular Re-education, Patient/Caregiver Education, Self-Care/Home Management,Soft Tissue Mobilization,Taping, Therapeutic Activities, Therapeutic Exercises Modalities Cold Pack/Ice Massage,Electric Stimulation,Hot Packs, Infrared Therapy,Ultrasound Next Visit Focus/Plan Next Note Type Treatment Note Next Visit Plan review exercises; advance standing exercises as tolerated; try tball exercises for core; gentle manual to hips, innominate and soft tissue to back/hips
--- NOTE | 2024-07-11 12:01 | PT.OTN ---
Current Diagnoses Unilateral primary osteoarthritis, right hip (07/11/24) Pain in left hip (07/11/24) Low back pain, unspecified (07/11/24) Difficulty in walking, not elsewhere classified (07/11/24) Abnormal posture (07/11/24) Weakness (07/11/24) Physical Therapy Treatment Note PT-OP-A Visit Information Start: 06/29/24 17:14 Freq: Status: Active Protocol: Document 07/11/24 11:23 SP (Rec: 07/11/24 12:12 SP [id number]) Out-Patient Physical Therapy Visit Information Visit Information Visit Type Treatment Note Visit Start Time 11:23 Visit Stop Time 12:01 Visit Number 12/27 Number of CUPOLA PATCHER Visits 1 PT-OP-B Current Condition Start: 06/29/24 17:14 Freq: Status: Active Protocol: Document 07/04/24 11:19 [facility] (Rec: 07/04/24 18:21 [facility] [id number]) Current Condition History of Current Condition Current Complaints back pain, hip pain, leg numbness/tingling History of Current Condition Pt reports she has had more prominant R hip pain in the past year and with recent weather change, L hip has also been painful. Is still having a lot of nerve pain despite back surgery. She is still having a lot of numbness and tingling. She got only 30% improvement w/surgery. SHe will be following up w/spinal surgeon soon. Has had injections and theyd idn't help. Had PT prior to surgery and that didn't help. Pain is just getting worse and worse. She is trying to put off a RHONDA as long as possible. Pain is lat hip B. Does have CMC jt pain B and has had L wrist fusion along w/ neck pain and numbness/shoulder pain. hx of tubal ligation in 2008, hernia repair and gallbladder in 2019. First problem w/back was 2009 without known cause and bulging disc was found and injured back on job in 2012 tera tto stand from desk and got caught on computer cord and fell onto back. pt has numbness and tingling from LB down buttocks, post leg, and into plantar and lat foot. this has been since 2012. Has been unable to work since 2012 . Right now walks around [employer] for maybe 15 min max and has to stop d/t pain. Had EMG also prior to surgery. Prior Treatments and Tests Lumbar MRI: MPRESSION: 1. Interval posterior decompression with posterior fusion instrumentation at L5- S1. 2. Multilevel degenerative changes of the lumbar spine, most pronounced at L5-S1, where there is severe left neural foraminal stenosis, grossly unchanged from prior exam. 3. Mild central canal stenosis at L3-4 and L4-5. Lumbar CT: 1. No acute lumbar vertebral compression fractures. 2. Status post L5-S1 posterior fusion without hardware complication. 3. Severe central bony canal stenosis at L4-L5 and severe bony foraminal stenosis at the left L5-S1 level. Please see the same day 07/01/2024 MRI lumbar spine without contrast exam for further details. xray to hip: IMPRESSION: 1. No acute bony abnormality. 2. Osteoarthritic changes to the bilateral SI joints and hip joints. Treatment Goals Patient/Caregiver Goals be able to move a little easier and be in less constant pain, be able to walk to start to exercise to help back and help lose weight PT-OP-C Subjective Start: 06/29/24 17:14 Freq: Status: Active Protocol: Document 07/11/24 11:23 SP (Rec: 07/11/24 12:12 SP [id number]) OP-PT Subjective Patient Comments Patient Comments Pt reports felt the the manual helped but was still sore B SI jt area after last tx. Has been compliant with HEP daily. She could feel the swelling on R side. Has beenlaying on heating pad. Has a referrral to Attendance Clerk due to labs taken abnormal. PT-OP-D Balance Start: 06/29/24 17:14 Freq: Status: Active Protocol: Document 07/04/24 11:19 [facility] (Rec: 07/04/24 18:21 [facility] [id number]) Balance Tests Single Limb Standing Single Limb- Right 10 sec w/lots of deviation Single Limb- Left 2 sec PT-OP-F Manual Assessment Start: 06/29/24 17:14 Freq: Status: Active Protocol: Document 07/04/24 11:19 [facility] (Rec: 07/04/24 18:21 [facility] [id number]) Manual Assessments Soft Tissue Assessment Soft Tissue Mobility Assessment tightness B spine and QL PT-OP-G Mobility & Gait Start: 06/29/24 17:14 Freq: Status: Active Protocol: Document 07/04/24 11:19 [facility] (Rec: 07/04/24 18:21 [facility] [id number]) OP Gait Assessment Comments Gait Comments very rigid trunk, dec push off B, lat lean over LE B w/ wt bearing PT-OP-J Posture/Palpation/Skin Start: 06/29/24 17:14 Freq: Status: Active Protocol: Document 07/04/24 11:19 [facility] (Rec: 07/04/24 18:21 [facility] [id number]) Posture Evaluation [facility] Postural Classification System Catherine Postural Classifications Posterior/Anterior Lumbar Protective Mechanism Left AP 0 Lumbar Protective Mechanism Right AP 1 Lumbar Protective Mechanism Left PA 0 Lumbar Protective Mechanism Right PA 0 Comments Posture Comments rotated L, pelvis shifted R, slightly turned out R foot, R iliac crest higher but equal greater trochanter, excessive lower lumbar lordosis, inc kyphosis PT-OP-K Range of Motion Start: 06/29/24 17:14 Freq: Status: Active Protocol: Document 07/04/24 11:19 [facility] (Rec: 07/04/24 18:21 [facility] [id number]) Lumbar Spine Range of Motion Lumbar Spine Active Percentage Flexion 50 Extension 40 Rotation Left 40 Rotation Right 25 Lateral Flexion Left 40 Lateral Flexion Right 15 ROM Limitations Pain Hip Goniometric Range of Motion Hip Right Active Flexion w/Knee Flexed 78 Straight Leg Raise 48 Internal Rotation 25 External Rotation 21 Left Active Flexion w/Knee Flexed 80 Straight Leg Raise 61 Internal Rotation 23 External Rotation 20 PT-OP-L Special Tests Start: 06/29/24 17:14 Freq: Status: Active Protocol: Document 07/04/24 11:19 [facility] (Rec: 07/04/24 18:21 [facility] [id number]) Special Tests Hip Special Tests obers Comments positive B slump Comments neg ext and slump sit-mild HS tension B PT-OP-M Strength Start: 06/29/24 17:14 Freq: Status: Active Protocol: Document 07/04/24 11:19 [facility] (Rec: 07/04/24 18:21 [facility] [id number]) Hip Strength Hip Manual Muscle Testing Right Flexion (L2) 4 Good Abduction 3 Fair Adduction 3- Fair- External Rotation 3+ Fair+ Internal Rotation 4+ Good+ Left Flexion (L2) 4 Good Abduction 3+ Fair+ Adduction 3- Fair- External Rotation 3+ Fair+ Internal Rotation 4+ Good+ Knee Strength Knee Manual Muscle Testing Right Flexion (S2) 5 Normal Extension (L3) 4 Good Left Flexion (S2) 5 Normal Extension (L3) 4 Good Ankle/Foot Strength Ankle and Foot Manual Muscle Testing Right Dorsiflexion (L4) 5 Normal Plantarflexion (S1) 5 Normal Left Dorsiflexion (L4) 5 Normal Plantarflexion (S1) 5 Normal Comments PF tested seated B PT-OP-Q Treatments Start: 06/29/24 17:14 Freq: Status: Active Protocol: Document 07/11/24 11:23 SP (Rec: 07/11/24 12:12 SP [id number]) Therapeutic Exercises Supine Exercises bridge Supine Exercise Name HEP reviewed Side bilateral Reps/Minutes 15x3 sec Comments cues core then glute engagement, lift hold/lower plane taking off/land pelvic tilt Supine Exercise Name ant/post& VOIP NETWORK TECHNICIAN pre bridge Reps/Minutes 15 Comments cues for comfortable range of motion Standing Exercises sit to stand Standing Exercise Name 1. sit<>stand 2. eccentric chair taps Side bilateral Resistance arms across chest Equipment Used 18 chair Reps/Minutes 1. 10 felt fine/tiring 2. 3 reps crepitus knees and little light headedhold Comments reports tiring but pnfree STS, hold taps due to lightheaded Manual Therapy Treatment Soft Tissue Mobilization glute Body Location B Mobilization Type Rolling Intensity/Depth Moderate Body Position Prone over pilloe Comments long axis femoral hip IR/ ER: Limited L ER, Limited R IR AROM, but AAROM able go further Joint Mobilizations hip Body Position Hooklying Comments R hip free the ball ER c/r and inf glide w/c/r; L hip free the ball IR c/r PT-OP-T Assessment and Plan Start: 06/29/24 17:14 Freq: Status: Active Protocol: Document 07/11/24 11:23 SP (Rec: 07/11/24 12:12 SP [id number]) Physical Therapy Assessment Goals activity Short Term Goal (STG) Pt will report being able to go for walks for 20 min at a time w/o pain greater than 5/ 10 STG Duration 08/18 Scuba Diving Instructor Goal (LTG) Pt will report being able to go for walks for 35 min at a time w/o pain greater than 5/ 10 LTG Duration 09/26 strength Short Term Goal (STG) Pt will be indep w/HEP STG Duration 08/12 Prison Goal (LTG) Pt will score at least 3/5 on LPM and at least 4+/5 on all BLE MMT to show improved stability to allow greater ease with activity. LTG Duration 09/17 LEFS Impairment 25/80 Short Term Goal (STG) pt will score at least 38/80 to show improved functional ability. STG Duration 08/18 Prison Goal (LTG) pt will score at least 48/80 to show improved functional ability. LTG Duration 09/26 Assessment Summary Assessment Pt reports improved hip ROM and less tension at SI after manual. She was ableto complete STS with no UE support, trialed eccentric tap but had adverse affect lightheadedness so instructed sit/rest for recovery (not assess BP). CUPOLA PATCHER stated in future will allow more time change positions. Pt reports states has had low BPs in her past. Pt reports little less soreness in hips, 1 glut little numbness feeling but overall moving better than when arrived. Physical Therapy Plan Frequency and Duration Frequency of Treatment 1-2x/wk Duration of treatment (weeks) 12 Plan of Care Start Date 07/04/24 Plan of Care End Date 09/26/24 Therapeutic Interventions Therapeutic Interventions Balance Training,Gait Training ,Home Exercise Program,Joint Mobilizations,Manual Therapy, Neuromuscular Re-education, Patient/Caregiver Education, Self-Care/Home Management,Soft Tissue Mobilization,Taping, Therapeutic Activities, Therapeutic Exercises Modalities Cold Pack/Ice Massage,Electric Stimulation,Hot Packs, Infrared Therapy,Ultrasound Next Visit Focus/Plan Next Note Type Treatment Note Next Visit Plan review exercises; advance standing exercises as tolerated; try tball exercises for core; gentle manual to hips, innominate and soft tissue to back/hips
--- NOTE | 2024-07-14 13:45 | PT.OTN ---
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 (Rec: 07/04/24 18:21 [facility] [id number]) Current Condition History of Current Condition Current Complaints back pain, hip pain, leg numbness/tingling History of Current Condition Pt reports she has had more prominant R hip pain in the past year and with recent weather change, L hip has also been painful. Is still having a lot of nerve pain despite back surgery. She is still having a lot of numbness and tingling. She got only 30% improvement w/surgery. SHe will be following up w/spinal surgeon soon. Has had injections and theyd idn't help. Had PT prior to surgery and that didn't help. Pain is just getting worse and worse. She is trying to put off a RHONDA as long as possible. Pain is lat hip B. Does have CMC jt pain B and has had L wrist fusion along w/ neck pain and numbness/shoulder pain. hx of tubal ligation in 2008, hernia repair and gallbladder in 2019. First problem w/back was 2009 without known cause and bulging disc was found and injured back on job in 2012 tera tto stand from desk and got caught on computer cord and fell onto back. pt has numbness and tingling from LB down buttocks, post leg, and into plantar and lat foot. this has been since 2012. Has been unable to work since 2012 . Right now walks around [employer] for maybe 15 min max and has to stop d/t pain. Had EMG also prior to surgery. Prior Treatments and Tests Lumbar MRI: MPRESSION: 1. Interval posterior decompression with posterior fusion instrumentation at L5- S1. 2. Multilevel degenerative changes of the lumbar spine, most pronounced at L5-S1, where there is severe left neural foraminal stenosis, grossly unchanged from prior exam. 3. Mild central canal stenosis at L3-4 and L4-5. Lumbar CT: 1. No acute lumbar vertebral compression fractures. 2. Status post L5-S1 posterior fusion without hardware complication. 3. Severe central bony canal stenosis at L4-L5 and severe bony foraminal stenosis at the left L5-S1 level. Please see the same day 07/01/2024 MRI lumbar spine without contrast exam for further details. xray to hip: IMPRESSION: 1. No acute bony abnormality. 2. Osteoarthritic changes to the bilateral SI joints and hip joints. Treatment Goals Patient/Caregiver Goals be able to move a little easier and be in less constant pain, be able to walk to start to exercise to help back and help lose weight PT-OP-C Subjective Start: 06/29/24 17:14 Freq: Status: Active Protocol: Document 07/14/24 13:00 SP (Rec: 07/14/24 13:47 SP [id number]) OP-PT Subjective Patient Comments Patient Comments Pt reports was little sore after last tx but to be expected with exercise doing. She reports that resisted clamshell with Lv 2 band really makes her R hip sore and hurt. PT-OP-D Balance Start: 06/29/24 17:14 Freq: Status: Active Protocol: Document 07/04/24 11:19 [facility] (Rec: 07/04/24 18:21 [facility] [id number]) Balance Tests Single Limb Standing Single Limb- Right 10 sec w/lots of deviation Single Limb- Left 2 sec PT-OP-F Manual Assessment Start: 06/29/24 17:14 Freq: Status: Active Protocol: Document 07/04/24 11:19 [facility] (Rec: 07/04/24 18:21 [facility] [id number]) Manual Assessments Soft Tissue Assessment Soft Tissue Mobility Assessment tightness B spine and QL PT-OP-G Mobility & Gait Start: 06/29/24 17:14 Freq: Status: Active Protocol: Document 07/04/24 11:19 [facility] (Rec: 07/04/24 18:21 [facility] [id number]) OP Gait Assessment Comments Gait Comments very rigid trunk, dec push off B, lat lean over LE B w/ wt bearing PT-OP-J Posture/Palpation/Skin Start: 06/29/24 17:14 Freq: Status: Active Protocol: Document 07/04/24 11:19 [facility] (Rec: 07/04/24 18:21 [facility] [id number]) Posture Evaluation [facility] Postural Classification System Catherine Postural Classifications Posterior/Anterior Lumbar Protective Mechanism Left AP 0 Lumbar Protective Mechanism Right AP 1 Lumbar Protective Mechanism Left PA 0 Lumbar Protective Mechanism Right PA 0 Comments Posture Comments rotated L, pelvis shifted R, slightly turned out R foot, R iliac crest higher but equal greater trochanter, excessive lower lumbar lordosis, inc kyphosis PT-OP-K Range of Motion Start: 06/29/24 17:14 Freq: Status: Active Protocol: Document 07/04/24 11:19 [facility] (Rec: 07/04/24 18:21 [facility] [id number]) Lumbar Spine Range of Motion Lumbar Spine Active Percentage Flexion 50 Extension 40 Rotation Left 40 Rotation Right 25 Lateral Flexion Left 40 Lateral Flexion Right 15 ROM Limitations Pain Hip Goniometric Range of Motion Hip Right Active Flexion w/Knee Flexed 78 Straight Leg Raise 48 Internal Rotation 25 External Rotation 21 Left Active Flexion w/Knee Flexed 80 Straight Leg Raise 61 Internal Rotation 23 External Rotation 20 PT-OP-L Special Tests Start: 06/29/24 17:14 Freq: Status: Active Protocol: Document 07/04/24 11:19 [facility] (Rec: 07/04/24 18:21 [facility] [id number]) Special Tests Hip Special Tests obers Comments positive B slump Comments neg ext and slump sit-mild HS tension B PT-OP-M Strength Start: 06/29/24 17:14 Freq: Status: Active Protocol: Document 07/04/24 11:19 [facility] (Rec: 07/04/24 18:21 [facility] [id number]) Hip Strength Hip Manual Muscle Testing Right Flexion (L2) 4 Good Abduction 3 Fair Adduction 3- Fair- External Rotation 3+ Fair+ Internal Rotation 4+ Good+ Left Flexion (L2) 4 Good Abduction 3+ Fair+ Adduction 3- Fair- External Rotation 3+ Fair+ Internal Rotation 4+ Good+ Knee Strength Knee Manual Muscle Testing Right Flexion (S2) 5 Normal Extension (L3) 4 Good Left Flexion (S2) 5 Normal Extension (L3) 4 Good Ankle/Foot Strength Ankle and Foot Manual Muscle Testing Right Dorsiflexion (L4) 5 Normal Plantarflexion (S1) 5 Normal Left Dorsiflexion (L4) 5 Normal Plantarflexion (S1) 5 Normal Comments PF tested seated B PT-OP-Q Treatments Start: 06/29/24 17:14 Freq: Status: Active Protocol: Document 07/14/24 13:00 SP (Rec: 07/14/24 13:47 SP [id number]) Gym Equipment Therapeutic Ball 65 cm tball- Core Exercise Details trialed in PT: pelvit tilt f/b /l, december Ball Size/Color 65cm tball Mirror front self awareness and demo follow Body Position seated Reps/Duration 10 reps each Comments cued trunk alignment with midline upper body and stationary BLEs. No pain, just challenging reported. Therapeutic Exercises Supine Exercises Stretching Supine Exercise Name trialed in PT & added to HEP / c HOs: 1. ITB 2. HS 3. HS /c AP Side right Equipment Used /c strap on foot Reps/Minutes 1, 2. sustained hold stretch 30 SH, 3. 10 AP Comments good feedback stretch, pn free bridge Supine Exercise Name HEP reviewed Side bilateral Reps/Minutes 15x5 sec Comments cues core then glute engagement, lift hold/lower plane taking off/land LTR Side bilateral Equipment Used hands under pelvis self feedback pelvis down on table Reps/Minutes x12 Comments cues for comfortable range and core activation to bring legs back up Sidelying Exercises clamshells Sidelying Exercise Name HEP reviewed Side bilateral Resistance L2> AROM Equipment Used top UE on hip self stacked alignment support Reps/Minutes 15 ea Comments cues TA draw in for support to inhibit back recruitment Manual Therapy Treatment Soft Tissue Mobilization glute Body Location B glut med, piriformis Mobilization Type Rolling,Sustained Pressure, Other Intensity/Depth Moderate Body Position Prone over pilloe Comments long axis femoral hip IR/ ER: Limited L ER, Limited R IR AROM, but AAROM able go further ITB Body Location B ITB, TFL Mobilization Type Rolling,Sustained Pressure, Other Intensity/Depth Moderate Body Position Hooklying Comments w/ hip long axis femur IR/ER PT-OP-T Assessment and Plan Start: 06/29/24 17:14 Freq: Status: Active Protocol: Document 07/14/24 13:00 SP (Rec: 07/14/24 13:47 SP [id number]) Physical Therapy Assessment Goals activity Short Term Goal (STG) Pt will report being able to go for walks for 20 min at a time w/o pain greater than 5/ 10 STG Duration 08/18 Director Of Managed Services Goal (LTG) Pt will report being able to go for walks for 35 min at a time w/o pain greater than 5/ 10 LTG Duration 09/26 strength Short Term Goal (STG) Pt will be indep w/HEP STG Duration 08/12 Director Of Managed Services Goal (LTG) Pt will score at least 3/5 on LPM and at least 4+/5 on all BLE MMT to show improved stability to allow greater ease with activity. LTG Duration 09/17 LEFS Impairment 25/80 Short Term Goal (STG) pt will score at least 38/80 to show improved functional ability. STG Duration 08/18 Director Of Managed Services Goal (LTG) pt will score at least 48/80 to show improved functional ability. LTG Duration 09/26 Assessment Summary Assessment Pt reports little less muscle tightness after manual but during pressure over piriformis MWM hip IR/ER prone , just tightness and weakeness MWM TFL. REported numbness in R glut to posterior knee to ankle during MWM piriformis. Initiated Stretching /c strap ITB/HS/ HS with AP with reports less tension and improved mobility R hip/leg, provided HO for carryover home flexibility. REports no pain during clamshell review without resistance, discussed hold using TB for clamshell at this time. Initiated seated core activity on 65cm tball, challenge maintain midline posture and pelvic tilt but improved with reps, use mirror and demonstration to follow with report tiring on leg and core. Doesn't have a tball to use home. Will reinstruct next tx and can purchase for home later. Suggested pelvic tilts edge of chair for now, not given HO. Physical Therapy Plan Frequency and Duration Frequency of Treatment 1-2x/wk Duration of treatment (weeks) 12 Plan of Care Start Date 07/04/24 Plan of Care End Date 09/26/24 Therapeutic Interventions Therapeutic Interventions Balance Training,Gait Training ,Home Exercise Program,Joint Mobilizations,Manual Therapy, Neuromuscular Re-education, Patient/Caregiver Education, Self-Care/Home Management,Soft Tissue Mobilization,Taping, Therapeutic Activities, Therapeutic Exercises Modalities Cold Pack/Ice Massage,Electric Stimulation,Hot Packs, Infrared Therapy,Ultrasound Next Visit Focus/Plan Next Note Type Treatment Note Next Visit Plan review exercises, stretch, review tball exercises for core trialed in PT POC: advance standing exercises as tolerated; gentle manual to hips, innominate and soft tissue to back/hips
--- NOTE | 2024-07-18 09:04 | PT.OTN ---
Current Diagnoses Unilateral primary osteoarthritis, right hip (07/18/24) Pain in left hip (07/18/24) Low back pain, unspecified (07/18/24) Difficulty in walking, not elsewhere classified (07/18/24) Abnormal posture (07/18/24) Weakness (07/18/24) Physical Therapy Treatment Note PT-OP-A Visit Information Start: 06/29/24 17:14 Freq: Status: Active Protocol: Document 07/18/24 08:15 [facility] (Rec: 07/18/24 09:04 [facility] [id number]) Out-Patient Physical Therapy Visit Information Visit Information Visit Type Treatment Note Visit Start Time 08:17 Visit Stop Time 08:57 Visit Number 02/26 Number of MOBILE UI DESIGNER Visits 0 PT-OP-B Current Condition Start: 06/29/24 17:14 Freq: Status: Active Protocol: Document 07/04/24 11:19 [facility] (Rec: 07/04/24 18:21 [facility] [id number]) Current Condition History of Current Condition Current Complaints back pain, hip pain, leg numbness/tingling History of Current Condition Pt reports she has had more prominant R hip pain in the past year and with recent weather change, L hip has also been painful. Is still having a lot of nerve pain despite back surgery. She is still having a lot of numbness and tingling. She got only 30% improvement w/surgery. SHe will be following up w/spinal surgeon soon. Has had injections and theyd idn't help. Had PT prior to surgery and that didn't help. Pain is just getting worse and worse. She is trying to put off a RHONDA as long as possible. Pain is lat hip B. Does have CMC jt pain B and has had L wrist fusion along w/ neck pain and numbness/shoulder pain. hx of tubal ligation in 2008, hernia repair and gallbladder in 2020. First problem w/back was 2009 without known cause and bulging disc was found and injured back on job in 2012 tera tto stand from desk and got caught on computer cord and fell onto back. pt has numbness and tingling from LB down buttocks, post leg, and into plantar and lat foot. this has been since 2012. Has been unable to work since 2012 . Right now walks around [place] for maybe 15 min max and has to stop d/t pain. Had EMG also prior to surgery. Prior Treatments and Tests Lumbar MRI: MPRESSION: 1. Interval posterior decompression with posterior fusion instrumentation at L5- S1. 2. Multilevel degenerative changes of the lumbar spine, most pronounced at L5-S1, where there is severe left neural foraminal stenosis, grossly unchanged from prior exam. 3. Mild central canal stenosis at L3-4 and L4-5. Lumbar CT: 1. No acute lumbar vertebral compression fractures. 2. Status post L5-S1 posterior fusion without hardware complication. 3. Severe central bony canal stenosis at L4-L5 and severe bony foraminal stenosis at the left L5-S1 level. Please see the same day 07/01/2024 MRI lumbar spine without contrast exam for further details. xray to hip: IMPRESSION: 1. No acute bony abnormality. 2. Osteoarthritic changes to the bilateral SI joints and hip joints. Treatment Goals Patient/Caregiver Goals be able to move a little easier and be in less constant pain, be able to walk to start to exercise to help back and help lose weight PT-OP-C Subjective Start: 06/29/24 17:14 Freq: Status: Active Protocol: Document 07/18/24 08:15 [facility] (Rec: 07/18/24 09:04 [facility] [id number]) OP-PT Subjective Patient Comments Patient Comments Pt reports she hasn't done her PT d/t her back hurting so bad the past few days. She was told that the level above the level she had surgery on, is unstable (L4-5) and they will try another injection then do surgery if that doesn't work. Just talked to the doctor yesterday. Reports was in a lot of pain after she left last time. Has been in more pain every time she leaves. PT-OP-D Balance Start: 06/29/24 17:14 Freq: Status: Active Protocol: Document 07/04/24 11:19 [facility] (Rec: 07/04/24 18:21 [facility] [id number]) Balance Tests Single Limb Standing Single Limb- Right 10 sec w/lots of deviation Single Limb- Left 2 sec PT-OP-F Manual Assessment Start: 06/29/24 17:14 Freq: Status: Active Protocol: Document 07/04/24 11:19 [facility] (Rec: 07/04/24 18:21 [facility] [id number]) Manual Assessments Soft Tissue Assessment Soft Tissue Mobility Assessment tightness B spine and QL PT-OP-G Mobility & Gait Start: 06/29/24 17:14 Freq: Status: Active Protocol: Document 07/04/24 11:19 [facility] (Rec: 07/04/24 18:21 [facility] [id number]) OP Gait Assessment Comments Gait Comments very rigid trunk, dec push off B, lat lean over LE B w/ wt bearing PT-OP-J Posture/Palpation/Skin Start: 06/29/24 17:14 Freq: Status: Active Protocol: Document 07/04/24 11:19 [facility] (Rec: 07/04/24 18:21 [facility] [id number]) Posture Evaluation Catherine Postural Classification System Catherine Postural Classifications Posterior/Anterior Lumbar Protective Mechanism Left AP 0 Lumbar Protective Mechanism Right AP 1 Lumbar Protective Mechanism Left PA 0 Lumbar Protective Mechanism Right PA 0 Comments Posture Comments rotated L, pelvis shifted R, slightly turned out R foot, R iliac crest higher but equal greater trochanter, excessive lower lumbar lordosis, inc kyphosis PT-OP-K Range of Motion Start: 06/29/24 17:14 Freq: Status: Active Protocol: Document 07/04/24 11:19 [facility] (Rec: 07/04/24 18:21 [facility] [id number]) Lumbar Spine Range of Motion Lumbar Spine Active Percentage Flexion 50 Extension 40 Rotation Left 40 Rotation Right 25 Lateral Flexion Left 40 Lateral Flexion Right 15 ROM Limitations Pain Hip Goniometric Range of Motion Hip Right Active Flexion w/Knee Flexed 78 Straight Leg Raise 48 Internal Rotation 25 External Rotation 21 Left Active Flexion w/Knee Flexed 80 Straight Leg Raise 61 Internal Rotation 23 External Rotation 20 PT-OP-L Special Tests Start: 06/29/24 17:14 Freq: Status: Active Protocol: Document 07/04/24 11:19 [facility] (Rec: 07/04/24 18:21 [facility] [id number]) Special Tests Hip Special Tests obers Comments positive B slump Comments neg ext and slump sit-mild HS tension B PT-OP-M Strength Start: 06/29/24 17:14 Freq: Status: Active Protocol: Document 07/04/24 11:19 [facility] (Rec: 07/04/24 18:21 [facility] [id number]) Hip Strength Hip Manual Muscle Testing Right Flexion (L2) 4 Good Abduction 3 Fair Adduction 3- Fair- External Rotation 3+ Fair+ Internal Rotation 4+ Good+ Left Flexion (L2) 4 Good Abduction 3+ Fair+ Adduction 3- Fair- External Rotation 3+ Fair+ Internal Rotation 4+ Good+ Knee Strength Knee Manual Muscle Testing Right Flexion (S2) 5 Normal Extension (L3) 4 Good Left Flexion (S2) 5 Normal Extension (L3) 4 Good Ankle/Foot Strength Ankle and Foot Manual Muscle Testing Right Dorsiflexion (L4) 5 Normal Plantarflexion (S1) 5 Normal Left Dorsiflexion (L4) 5 Normal Plantarflexion (S1) 5 Normal Comments PF tested seated B PT-OP-Q Treatments Start: 06/29/24 17:14 Freq: Status: Active Protocol: Document 07/18/24 08:15 [facility] (Rec: 07/18/24 09:04 [facility] [id number]) Therapeutic Exercises Supine Exercises TA Supine Exercise Name 1. BKFO 2. march Side bilateral Reps/Minutes 15 ea Comments cues core control, hands under back to monitor Stretching Supine Exercise Name 1. ITB 2. HS 3. HS /c AP Side bilateral Equipment Used /c strap on foot Reps/Minutes 1&2: 30 sec 3.10 APs bridge Side bilateral Reps/Minutes 15x5 sec Comments cues comfortable range LTR Side bilateral Equipment Used hands under pelvis self feedback pelvis down on table Reps/Minutes 8 Comments working on comfortable range and not overdoing it. pelvic tilt Reps/Minutes 10 Comments cues comfortable range Manual Therapy Treatment Consent Patient gave verbal consent for manual Yes treatment Soft Tissue Mobilization scar Body Location lumbar Mobilization Type Myofascial Release,Rolling Body Position Sidelying LB Body Location paraspinals B & R QL Mobilization Type Rolling Intensity/Depth Moderate Body Position Sidelying PT-OP-T Assessment and Plan Start: 06/29/24 17:14 Freq: Status: Active Protocol: Document 07/18/24 08:15 [facility] (Rec: 07/18/24 09:04 [facility] [id number]) Physical Therapy Assessment Goals activity Short Term Goal (STG) Pt will report being able to go for walks for 20 min at a time w/o pain greater than 5/ 10 STG Duration 11 Penitentiary Goal (LTG) Pt will report being able to go for walks for 35 min at a time w/o pain greater than 5/ 10 LTG Duration 1210 strength Short Term Goal (STG) Pt will be indep w/HEP STG Duration 08/12 Penitentiary Goal (LTG) Pt will score at least 3/5 on LPM and at least 4+/5 on all BLE MMT to show improved stability to allow greater ease with activity. LTG Duration 09/17 LEFS Impairment 25/80 Short Term Goal (STG) pt will score at least 38/80 to show improved functional ability. STG Duration 08/18 Penitentiary Goal (LTG) pt will score at least 48/80 to show improved functional ability. LTG Duration 09/26 Assessment Summary Assessment Significant cues w/exercises re: staying in comfortable range and monitoring core engagement. SHe left saying she did not have inc pain today but same level pain. Significant scarring and tightness in lumbar spine that may be related to hip pain Physical Therapy Plan Frequency and Duration Frequency of Treatment 1-2x/wk Duration of treatment (weeks) 12 Plan of Care Start Date 07/04/24 Plan of Care End Date 09/26/24 Next Visit Focus/Plan Next Note Type Treatment Note Next Visit Plan review exercises as needed, advance standing exercises as tolerated; gentle manual to hips, innominate and soft tissue to back/hips
--- NOTE | 2024-08-04 11:50 | PT-OP ANOTE ---
Phoned patient and left message regarding no show, ie discharge from physical therapy with 2 no shows, and fees for no shows. Also left information for next PT appointment with Ira Wednesday at 7:30 am.
--- NOTE | 2024-08-09 08:10 | PT.OTN ---
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 Is still having a lot of nerve pain despite back surgery. She is still having a lot of numbness and tingling. She got only 30% improvement w/surgery. SHe will be following up w/spinal surgeon soon. Has had injections and theyd idn't help. Had PT prior to surgery and that didn't help. Pain is just getting worse and worse. She is trying to put off a RHONDA as long as possible. Pain is lat hip B. Does have CMC jt pain B and has had L wrist fusion along w/ neck pain and numbness/shoulder pain. hx of tubal ligation in 2008, hernia repair and gallbladder in 2019. First problem w/back was 2009 without known cause and bulging disc was found and injured back on job in 2012 tera tto stand from desk and got caught on computer cord and fell onto back. pt has numbness and tingling from LB down buttocks, post leg, and into plantar and lat foot. this has been since 2012. Has been unable to work since 2012 . Right now walks around [address] for maybe 15 min max and has to stop d/t pain. Had EMG also prior to surgery. Prior Treatments and Tests Lumbar MRI: MPRESSION: 1. Interval posterior decompression with posterior fusion instrumentation at L5- S1. 2. Multilevel degenerative changes of the lumbar spine, most pronounced at L5-S1, where there is severe left neural foraminal stenosis, grossly unchanged from prior exam. 3. Mild central canal stenosis at L3-4 and L4-5. Lumbar CT: 1. No acute lumbar vertebral compression fractures. 2. Status post L5-S1 posterior fusion without hardware complication. 3. Severe central bony canal stenosis at L4-L5 and severe bony foraminal stenosis at the left L5-S1 level. Please see the same day 07/01/2024 MRI lumbar spine without contrast exam for further details. xray to hip: IMPRESSION: 1. No acute bony abnormality. 2. Osteoarthritic changes to the bilateral SI joints and hip joints. Treatment Goals Patient/Caregiver Goals be able to move a little easier and be in less constant pain, be able to walk to start to exercise to help back and help lose weight PT-OP-C Subjective Start: 06/29/24 17:14 Freq: Status: Active Protocol: Document 08/09/24 07:31 [facility] (Rec: 08/09/24 08:17 [facility] [id number]) OP-PT Subjective Patient Comments Patient Comments Pt reports missed last appt forgot with neighborhood concerns needing to support and didnt' think to reschedule missed appt. Arrives with pain in R posterior hip and didn't sleep well last night but is using pillows between knees for alignment support. PT-OP-D Balance Start: 06/29/24 17:14 Freq: Status: Active Protocol: Document 07/04/24 11:19 [facility] (Rec: 07/04/24 18:21 [facility] [id number]) Balance Tests Single Limb Standing Single Limb- Right 10 sec w/lots of deviation Single Limb- Left 2 sec PT-OP-F Manual Assessment Start: 06/29/24 17:14 Freq: Status: Active Protocol: Document 07/04/24 11:19 [facility] (Rec: 07/04/24 18:21 [facility] [id number]) Manual Assessments Soft Tissue Assessment Soft Tissue Mobility Assessment tightness B spine and QL PT-OP-G Mobility & Gait Start: 06/29/24 17:14 Freq: Status: Active Protocol: Document 07/04/24 11:19 [facility] (Rec: 07/04/24 18:21 [facility] [id number]) OP Gait Assessment Comments Gait Comments very rigid trunk, dec push off B, lat lean over LE B w/ wt bearing PT-OP-J Posture/Palpation/Skin Start: 06/29/24 17:14 Freq: Status: Active Protocol: Document 07/04/24 11:19 [facility] (Rec: 07/04/24 18:21 [facility] [id number]) Posture Evaluation Catherine Postural Classification System Catherine Postural Classifications Posterior/Anterior Lumbar Protective Mechanism Left AP 0 Lumbar Protective Mechanism Right AP 1 Lumbar Protective Mechanism Left PA 0 Lumbar Protective Mechanism Right PA 0 Comments Posture Comments rotated L, pelvis shifted R, slightly turned out R foot, R iliac crest higher but equal greater trochanter, excessive lower lumbar lordosis, inc kyphosis PT-OP-K Range of Motion Start: 06/29/24 17:14 Freq: Status: Active Protocol: Document 07/04/24 11:19 [facility] (Rec: 07/04/24 18:21 [facility] [id number]) Lumbar Spine Range of Motion Lumbar Spine Active Percentage Flexion 50 Extension 40 Rotation Left 40 Rotation Right 25 Lateral Flexion Left 40 Lateral Flexion Right 15 ROM Limitations Pain Hip Goniometric Range of Motion Hip Right Active Flexion w/Knee Flexed 78 Straight Leg Raise 48 Internal Rotation 25 External Rotation 21 Left Active Flexion w/Knee Flexed 80 Straight Leg Raise 61 Internal Rotation 23 External Rotation 20 PT-OP-L Special Tests Start: 06/29/24 17:14 Freq: Status: Active Protocol: Document 07/04/24 11:19 [facility] (Rec: 07/04/24 18:21 [facility] [id number]) Special Tests Hip Special Tests obers Comments positive B slump Comments neg ext and slump sit-mild HS tension B PT-OP-M Strength Start: 06/29/24 17:14 Freq: Status: Active Protocol: Document 07/04/24 11:19 [facility] (Rec: 07/04/24 18:21 [facility] [id number]) Hip Strength Hip Manual Muscle Testing Right Flexion (L2) 4 Good Abduction 3 Fair Adduction 3- Fair- External Rotation 3+ Fair+ Internal Rotation 4+ Good+ Left Flexion (L2) 4 Good Abduction 3+ Fair+ Adduction 3- Fair- External Rotation 3+ Fair+ Internal Rotation 4+ Good+ Knee Strength Knee Manual Muscle Testing Right Flexion (S2) 5 Normal Extension (L3) 4 Good Left Flexion (S2) 5 Normal Extension (L3) 4 Good Ankle/Foot Strength Ankle and Foot Manual Muscle Testing Right Dorsiflexion (L4) 5 Normal Plantarflexion (S1) 5 Normal Left Dorsiflexion (L4) 5 Normal Plantarflexion (S1) 5 Normal Comments PF tested seated B PT-OP-Q Treatments Start: 06/29/24 17:14 Freq: Status: Active Protocol: Document 08/09/24 07:31 [facility] (Rec: 08/09/24 08:17 [facility] [id number]) Therapeutic Exercises Supine Exercises Stretching Supine Exercise Name 1. ITB 2. HS 3. HS /c AP 4. piriformis /c towel 5. Mohamud stretch Side bilateral Equipment Used /c strap on foot Reps/Minutes 1&2: 30 sec 3.10 APs Comments cued range for gentle stretch and not over excessive irritate nerve- improv bridge Supine Exercise Name TA draw in Side bilateral Reps/Minutes 15x5 sec Comments cues comfortable range- pnfree reported LTR Side bilateral Equipment Used hands under pelvis self feedback pelvis down on table Reps/Minutes 10 Comments working on comfortable range- pnfree reported Sitting Exercises piriformis stretch Side right Reps/Minutes 30 SH Comments good feedback gentle stretch end tx recovery Standing Exercises sit to stand Standing Exercise Name 1. sit<>stand Side bilateral Resistance arms across chest, TB 31 around thighs Equipment Used 18 chair Reps/Minutes 10 felt fine/tiring Comments reports tiring but pnfree abd Standing Exercise Name hip Side bilateral Resistance Tb #1 around thighs Equipment Used rail Reps/Minutes 10 Comments cues posture march Side bilateral Resistance TB around feet Equipment Used Rail PRN Reps/Minutes 10 Comments cues posture Manual Therapy Treatment Consent Patient gave verbal consent for manual Yes treatment Soft Tissue Mobilization LB Body Location R paraspinals and QL Mobilization Type Rolling Intensity/Depth Moderate Body Position L Sidelying glute Body Location R glut med, piriformis Mobilization Type Rolling,Sustained Pressure, Other Intensity/Depth Moderate Body Position L SL Comments MWM hip IR/ ER clamshell: sensitive to pressure adjusted with feedback, decreased tension reported Neuro Re-Education Treatment Balance Activities SLS Details added to HEP /c HO Comments RLE 13 sec LLE 2-3 sec Cued tall with rhomboid and core fac over stance LE, challenging on LLE PT-OP-T Assessment and Plan Start: 06/29/24 17:14 Freq: Status: Active Protocol: Document 08/09/24 07:31 [facility] (Rec: 08/09/24 08:17 [facility] [id number]) Physical Therapy Assessment Goals activity Short Term Goal (STG) Pt will report being able to go for walks for 20 min at a time w/o pain greater than 5/ 10 STG Duration 08/18 Retirement Goal (LTG) Pt will report being able to go for walks for 35 min at a time w/o pain greater than 5/ 10 LTG Duration 09/26 strength Short Term Goal (STG) Pt will be indep w/HEP STG Duration 08/12 Retirement Goal (LTG) Pt will score at least 3/5 on LPM and at least 4+/5 on all BLE MMT to show improved stability to allow greater ease with activity. LTG Duration 09/17 LEFS Impairment 25/80 Short Term Goal (STG) pt will score at least 38/80 to show improved functional ability. STG Duration 08/18 Retirement Goal (LTG) pt will score at least 48/80 to show improved functional ability. LTG Duration 09/26 Assessment Summary Assessment Pt tolerated tx well, decreased cues during stretching ther ex today improved TA support. Initiated mohamud and piriformis stretch for R hip decreased tenison post manual today. Pt tolerated added resistance to STS and current standing HEP with report of muscle tiring effort and little soreness but not pain in R hip by end tx. Physical Therapy Plan Frequency and Duration Frequency of Treatment 1-2x/wk Duration of treatment (weeks) 12 Plan of Care Start Date 07/04/24 Plan of Care End Date 09/26/24 Therapeutic Interventions Therapeutic Interventions Balance Training,Gait Training ,Home Exercise Program,Joint Mobilizations,Manual Therapy, Neuromuscular Re-education, Patient/Caregiver Education, Self-Care/Home Management,Soft Tissue Mobilization,Taping, Therapeutic Activities, Therapeutic Exercises Modalities Cold Pack/Ice Massage,Electric Stimulation,Hot Packs, Infrared Therapy,Ultrasound Next Visit Focus/Plan Next Note Type Treatment Note Next Visit Plan REview added resistance to standing exercises as tolerated. POC: gentle manual to hips, innominate and soft tissue to back/hips
--- NOTE | 2024-08-21 09:14 | PT-OP ANOTE ---
Pt did not show for today's appt. CONCR[employer]ODU[employer] DISPATCHER called and pt stated remembered about Wed's appt and forgot about today. [employer]CR[employer] DISPATCHER reminded wanting to assist progression during PT visits, attendance supportive of this, discussed policy and potential NS fee, understood. Confirmed Wed appt.
--- NOTE | 2024-08-23 11:27 | PT.OTN ---
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 Is still having a lot of nerve pain despite back surgery. She is still having a lot of numbness and tingling. She got only 30% improvement w/surgery. SHe will be following up w/spinal surgeon soon. Has had injections and theyd idn't help. Had PT prior to surgery and that didn't help. Pain is just getting worse and worse. She is trying to put off a RHONDA as long as possible. Pain is lat hip B. Does have CMC jt pain B and has had L wrist fusion along w/ neck pain and numbness/shoulder pain. hx of tubal ligation in 2008, hernia repair and gallbladder in 2019. First problem w/back was 2009 without known cause and bulging disc was found and injured back on job in 2012 tera tto stand from desk and got caught on computer cord and fell onto back. pt has numbness and tingling from LB down buttocks, post leg, and into plantar and lat foot. this has been since 2012. Has been unable to work since 2012 . Right now walks around [place] for maybe 15 min max and has to stop d/t pain. Had EMG also prior to surgery. Prior Treatments and Tests Lumbar MRI: MPRESSION: 1. Interval posterior decompression with posterior fusion instrumentation at L5- S1. 2. Multilevel degenerative changes of the lumbar spine, most pronounced at L5-S1, where there is severe left neural foraminal stenosis, grossly unchanged from prior exam. 3. Mild central canal stenosis at L3-4 and L4-5. Lumbar CT: 1. No acute lumbar vertebral compression fractures. 2. Status post L5-S1 posterior fusion without hardware complication. 3. Severe central bony canal stenosis at L4-L5 and severe bony foraminal stenosis at the left L5-S1 level. Please see the same day 07/01/2024 MRI lumbar spine without contrast exam for further details. xray to hip: IMPRESSION: 1. No acute bony abnormality. 2. Osteoarthritic changes to the bilateral SI joints and hip joints. Treatment Goals Patient/Caregiver Goals be able to move a little easier and be in less constant pain, be able to walk to start to exercise to help back and help lose weight PT-OP-C Subjective Start: 06/29/24 17:14 Freq: Status: Active Protocol: Document 08/23/24 10:47 SP (Rec: 08/23/24 11:34 SP [id number]) OP-PT Subjective Patient Comments Patient Comments Pt reports is having acupunction after PT appt today by PCP Edgar Espinoza. She reports goes to out town ( approx 8 hrs to [employer], [employer] , etc) for groceries 1x/mo since last tx then in more pain and down through next day . She states lasts about 30 min before hip pain starts to hurt at R low back and hip. PT-OP-D Balance Start: 06/29/24 17:14 Freq: Status: Active Protocol: Document 07/04/24 11:19 [facility] (Rec: 07/04/24 18:21 [facility] [id number]) Balance Tests Single Limb Standing Single Limb- Right 10 sec w/lots of deviation Single Limb- Left 2 sec PT-OP-F Manual Assessment Start: 06/29/24 17:14 Freq: Status: Active Protocol: Document 07/04/24 11:19 [facility] (Rec: 07/04/24 18:21 [facility] [id number]) Manual Assessments Soft Tissue Assessment Soft Tissue Mobility Assessment tightness B spine and QL PT-OP-G Mobility & Gait Start: 06/29/24 17:14 Freq: Status: Active Protocol: Document 07/04/24 11:19 [facility] (Rec: 07/04/24 18:21 [facility] [id number]) OP Gait Assessment Comments Gait Comments very rigid trunk, dec push off B, lat lean over LE B w/ wt bearing PT-OP-J Posture/Palpation/Skin Start: 06/29/24 17:14 Freq: Status: Active Protocol: Document 07/04/24 11:19 [facility] (Rec: 07/04/24 18:21 [facility] [id number]) Posture Evaluation [facility] Postural Classification System Catherine Postural Classifications Posterior/Anterior Lumbar Protective Mechanism Left AP 0 Lumbar Protective Mechanism Right AP 1 Lumbar Protective Mechanism Left PA 0 Lumbar Protective Mechanism Right PA 0 Comments Posture Comments rotated L, pelvis shifted R, slightly turned out R foot, R iliac crest higher but equal greater trochanter, excessive lower lumbar lordosis, inc kyphosis PT-OP-K Range of Motion Start: 06/29/24 17:14 Freq: Status: Active Protocol: Document 07/04/24 11:19 [facility] (Rec: 07/04/24 18:21 [facility] [id number]) Lumbar Spine Range of Motion Lumbar Spine Active Percentage Flexion 50 Extension 40 Rotation Left 40 Rotation Right 25 Lateral Flexion Left 40 Lateral Flexion Right 15 ROM Limitations Pain Hip Goniometric Range of Motion Hip Right Active Flexion w/Knee Flexed 78 Straight Leg Raise 48 Internal Rotation 25 External Rotation 21 Left Active Flexion w/Knee Flexed 80 Straight Leg Raise 61 Internal Rotation 23 External Rotation 20 PT-OP-L Special Tests Start: 06/29/24 17:14 Freq: Status: Active Protocol: Document 07/04/24 11:19 [facility] (Rec: 07/04/24 18:21 [facility] [id number]) Special Tests Hip Special Tests obers Comments positive B slump Comments neg ext and slump sit-mild HS tension B PT-OP-M Strength Start: 06/29/24 17:14 Freq: Status: Active Protocol: Document 07/04/24 11:19 [facility] (Rec: 07/04/24 18:21 [facility] [id number]) Hip Strength Hip Manual Muscle Testing Right Flexion (L2) 4 Good Abduction 3 Fair Adduction 3- Fair- External Rotation 3+ Fair+ Internal Rotation 4+ Good+ Left Flexion (L2) 4 Good Abduction 3+ Fair+ Adduction 3- Fair- External Rotation 3+ Fair+ Internal Rotation 4+ Good+ Knee Strength Knee Manual Muscle Testing Right Flexion (S2) 5 Normal Extension (L3) 4 Good Left Flexion (S2) 5 Normal Extension (L3) 4 Good Ankle/Foot Strength Ankle and Foot Manual Muscle Testing Right Dorsiflexion (L4) 5 Normal Plantarflexion (S1) 5 Normal Left Dorsiflexion (L4) 5 Normal Plantarflexion (S1) 5 Normal Comments PF tested seated B PT-OP-Q Treatments Start: 06/29/24 17:14 Freq: Status: Active Protocol: Document 08/23/24 10:47 SP (Rec: 08/23/24 11:34 SP [id number]) Cardio Equipment Recumbent Elliptical (MedPlasts) Resistance 2 Seat Position 7 Other BUEs/BLEs Therapeutic Exercises Supine Exercises Stretching Supine Exercise Name 1. ITB 2. HS 3. HS /c AP 4. piriformis /c towel 5. Mohamud stretch Side bilateral Equipment Used /c strap on foot Reps/Minutes 1-2, 4-5: 60 sec each 3.10 ( towel posterior thigh) /c APs Comments cued range for gentle stretch each, ed not excessive cause radicular sympto Standing Exercises abd Standing Exercise Name hip Side bilateral Resistance Tb #1 around feet> ankles Equipment Used rail Reps/Minutes 20 reps alternating BLEs Comments cues midline posture march Side bilateral Resistance TB #1 around feet Equipment Used Rail PRN Reps/Minutes x20 Comments cues posture, neutral pelvis, feet apart- Manual Therapy Treatment Consent Patient gave verbal consent for manual Yes treatment Soft Tissue Mobilization LB Body Location R paraspinals and QL Mobilization Type Rolling,Sustained Pressure, Other Intensity/Depth Moderate Body Position L Sidelying Comments STMs, PNF anterior elevation/ posterior depression glute Body Location R glut med, piriformis Mobilization Type Rolling,Sustained Pressure, Other Intensity/Depth Moderate Body Position L SL Comments MWM hip IR/ ER clamshell: good feedback of pressure not need for adjustment, decreased tension reported PT-OP-T Assessment and Plan Start: 06/29/24 17:14 Freq: Status: Active Protocol: Document 08/23/24 10:47 SP (Rec: 08/23/24 11:34 SP [id number]) Physical Therapy Assessment Goals activity Short Term Goal (STG) Pt will report being able to go for walks for 20 min at a time w/o pain greater than 5/ 10 08/23/24: progressing lasts about 30 min with pain 5/10 R hip/LBP with support of grocery cart. STG Duration 08/18 progressing 08/23/24 Tyre Retreader Goal (LTG) Pt will report being able to go for walks for 35 min at a time w/o pain greater than 5/ 10 LTG Duration 09/26 strength Short Term Goal (STG) Pt will be indep w/HEP STG Duration 08/12 Tyre Retreader Goal (LTG) Pt will score at least 3/5 on LPM and at least 4+/5 on all BLE MMT to show improved stability to allow greater ease with activity. LTG Duration 09/17 LEFS Impairment 25/80 Short Term Goal (STG) pt will score at least 38/80 to show improved functional ability. STG Duration 08/18 Halfway Goal (LTG) pt will score at least 48/80 to show improved functional ability. LTG Duration 09/26 Assessment Summary Assessment Pt report improvement of endurance with pain grocery shopping lasting longer 30 min from 15 min when first started PT but still pain 5/10 R low back and hip. SHe tolerated tx well, improved decreased tension in R LB and R hip post manual MWM hip IR/ ER and stretching. Good muscle tiring duirng resisted ther ex and no pain or radicular symptoms. Education not to perform stretches into excessive range causing radicular symptoms. She reports little soreness in R glut area after ex. Is Headed to acupuncture after PT . Physical Therapy Plan Frequency and Duration Frequency of Treatment 1-2x/wk Duration of treatment (weeks) 12 Plan of Care Start Date 07/04/24 Plan of Care End Date 09/26/24 Therapeutic Interventions Therapeutic Interventions Balance Training,Gait Training ,Home Exercise Program,Joint Mobilizations,Manual Therapy, Neuromuscular Re-education, Patient/Caregiver Education, Self-Care/Home Management,Soft Tissue Mobilization,Taping, Therapeutic Activities, Therapeutic Exercises Modalities Cold Pack/Ice Massage,Electric Stimulation,Hot Packs, Infrared Therapy,Ultrasound Next Visit Focus/Plan Next Note Type Treatment Note Next Visit Plan Ask reponse to PT and acupuncture after last tx. REview added resistance to standing exercises as tolerated. POC: gentle manual to hips, innominate and soft tissue to back/hips
--- NOTE | 2024-08-29 12:22 | PT.OTN ---
Current Diagnoses Unilateral primary osteoarthritis, right hip (08/29/24) Pain in left hip (08/29/24) Low back pain, unspecified (08/29/24) Difficulty in walking, not elsewhere classified (08/29/24) Abnormal posture (08/29/24) Weakness (08/29/24) Physical Therapy Treatment Note PT-OP-A Visit Information Start: 06/29/24 17:14 Freq: Status: Active Protocol: Document 08/29/24 09:04 [facility] (Rec: 08/29/24 09:51 [facility] [id number]) Out-Patient Physical Therapy Visit Information Visit Information Visit Type Progress Note Visit Start Time 09:05 Visit Stop Time 09:45 Visit Number 05/29 Number of CHILD WELFARE CASEWORKER Visits 0 PT-OP-B Current Condition Start: 06/29/24 17:14 Freq: Status: Active Protocol: Document 07/04/24 11:19 [facility] (Rec: 07/04/24 18:21 [facility] [id number]) Current Condition History of Current Condition Current Complaints back pain, hip pain, leg numbness/tingling History of Current Condition Pt reports she has had more prominant R hip pain in the past year and with recent weather change, L hip has also been painful. Is still having a lot of nerve pain despite back surgery. She is still having a lot of numbness and tingling. She got only 30% improvement w/surgery. SHe will be following up w/spinal surgeon soon. Has had injections and theyd idn't help. Had PT prior to surgery and that didn't help. Pain is just getting worse and worse. She is trying to put off a RHONDA as long as possible. Pain is lat hip B. Does have CMC jt pain B and has had L wrist fusion along w/ neck pain and numbness/shoulder pain. hx of tubal ligation in 2008, hernia repair and gallbladder in 2020. First problem w/back was 2009 without known cause and bulging disc was found and injured back on job in 2012 tera tto stand from desk and got caught on computer cord and fell onto back. pt has numbness and tingling from LB down buttocks, post leg, and into plantar and lat foot. this has been since 2012. Has been unable to work since 2012 . Right now walks around [place] for maybe 15 min max and has to stop d/t pain. Had EMG also prior to surgery. Prior Treatments and Tests Lumbar MRI: MPRESSION: 1. Interval posterior decompression with posterior fusion instrumentation at L5- S1. 2. Multilevel degenerative changes of the lumbar spine, most pronounced at L5-S1, where there is severe left neural foraminal stenosis, grossly unchanged from prior exam. 3. Mild central canal stenosis at L3-4 and L4-5. Lumbar CT: 1. No acute lumbar vertebral compression fractures. 2. Status post L5-S1 posterior fusion without hardware complication. 3. Severe central bony canal stenosis at L4-L5 and severe bony foraminal stenosis at the left L5-S1 level. Please see the same day 07/01/2024 MRI lumbar spine without contrast exam for further details. xray to hip: IMPRESSION: 1. No acute bony abnormality. 2. Osteoarthritic changes to the bilateral SI joints and hip joints. Treatment Goals Patient/Caregiver Goals be able to move a little easier and be in less constant pain, be able to walk to start to exercise to help back and help lose weight PT-OP-C Subjective Start: 06/29/24 17:14 Freq: Status: Active Protocol: Document 08/29/24 09:04 [facility] (Rec: 08/29/24 09:51 [facility] [id number]) OP-PT Subjective Patient Comments Patient Comments Pt reports was really sore after acupuncture and PT same time. All the rest of the day and night was rough. Patient Questionnaires Lower Extremity Functional Scale LEFS Score 35 PT-OP-D Balance Start: 06/29/24 17:14 Freq: Status: Active Protocol: Document 07/04/24 11:19 [facility] (Rec: 07/04/24 18:21 [facility] [id number]) Balance Tests Single Limb Standing Single Limb- Right 10 sec w/lots of deviation Single Limb- Left 2 sec PT-OP-F Manual Assessment Start: 06/29/24 17:14 Freq: Status: Active Protocol: Document 07/04/24 11:19 [facility] (Rec: 07/04/24 18:21 [facility] [id number]) Manual Assessments Soft Tissue Assessment Soft Tissue Mobility Assessment tightness B spine and QL PT-OP-G Mobility & Gait Start: 06/29/24 17:14 Freq: Status: Active Protocol: Document 07/04/24 11:19 [facility] (Rec: 07/04/24 18:21 [facility] [id number]) OP Gait Assessment Comments Gait Comments very rigid trunk, dec push off B, lat lean over LE B w/ wt bearing PT-OP-J Posture/Palpation/Skin Start: 06/29/24 17:14 Freq: Status: Active Protocol: Document 08/29/24 09:04 [facility] (Rec: 08/29/24 09:51 [facility] [id number]) Posture Evaluation [facility] Postural Classification System Catherine Postural Classifications Posterior/Anterior Lumbar Protective Mechanism Left AP 2 Lumbar Protective Mechanism Right AP 2 Lumbar Protective Mechanism Left PA 1 Lumbar Protective Mechanism Right PA 1 PT-OP-K Range of Motion Start: 06/29/24 17:14 Freq: Status: Active Protocol: Document 07/04/24 11:19 [facility] (Rec: 07/04/24 18:21 [id number] Lumbar Spine Range of Motion Lumbar Spine Active Percentage Flexion 50 Extension 40 Rotation Left 40 Rotation Right 25 Lateral Flexion Left 40 Lateral Flexion Right 15 ROM Limitations Pain Hip Goniometric Range of Motion Hip Right Active Flexion w/Knee Flexed 78 Straight Leg Raise 48 Internal Rotation 25 External Rotation 21 Left Active Flexion w/Knee Flexed 80 Straight Leg Raise 61 Internal Rotation 23 External Rotation 20 PT-OP-L Special Tests Start: 06/29/24 17:14 Freq: Status: Active Protocol: Document 07/04/24 11:19 [facility] (Rec: 07/04/24 18:21 [facility] [id number]) Special Tests Hip Special Tests obers Comments positive B slump Comments neg ext and slump sit-mild HS tension B PT-OP-M Strength Start: 06/29/24 17:14 Freq: Status: Active Protocol: Document 08/29/24 09:04 [facility] (Rec: 08/29/24 09:51 [facility] [id number]) Hip Strength Hip Manual Muscle Testing Right Flexion (L2) 4 Good Abduction 4- Good- Adduction 3- Fair- External Rotation 4 Good Internal Rotation 5 Normal Left Flexion (L2) 4+ Good+ Abduction 4+ Good+ Adduction 4+ Good+ External Rotation 4 Good Internal Rotation 5 Normal Knee Strength Knee Manual Muscle Testing Right Flexion (S2) 5 Normal Extension (L3) 4+ Good+ Left Flexion (S2) 5 Normal Extension (L3) 4+ Good+ Ankle/Foot Strength Ankle and Foot Manual Muscle Testing Right Dorsiflexion (L4) 5 Normal Plantarflexion (S1) 5 Normal Left Dorsiflexion (L4) 5 Normal Plantarflexion (S1) 5 Normal Comments PF tested seated B PT-OP-Q Treatments Start: 06/29/24 17:14 Freq: Status: Active Protocol: Document 08/29/24 09:04 [facility] (Rec: 08/29/24 09:51 [facility] [id number]) Therapeutic Exercises Supine Exercises LTR Side bilateral Reps/Minutes 10 Comments cues to allow back to lift to comfortable range then core Standing Exercises paloff press Side bilateral Equipment Used 2 lvl 2 bands Reps/Minutes 12 ea Comments cues core and posture resisted walk Standing Exercise Name 1. fwd/back 2. sidesteps Side bilateral Reps/Minutes 15ft ea sit to stand Standing Exercise Name sit<>stand Side bilateral Resistance arms across chest, TB 2 around thighs Equipment Used 18 chair Reps/Minutes 12 abd Standing Exercise Name hip Side bilateral Resistance Tb #1 around feet Equipment Used rail Reps/Minutes 15 reps alternating BLEs Comments cues midline posture and controlled return w/foot to neutral march Side bilateral Resistance TB #1 around feet Equipment Used Rail PRN Reps/Minutes 2x10 Comments cues posture, neutral pelvis, feet apart- Other Exercises isometrics Other Exercise Name BMMT and LPM Side bilateral Manual Therapy Treatment Consent Patient gave verbal consent for manual Yes treatment Soft Tissue Mobilization add Body Location R Mobilization Type Rolling Comments w/IR/ER ITB Body Location R ITB, TFL Mobilization Type Rolling,Sustained Pressure, Other Intensity/Depth Moderate Body Position Hooklying Comments w/ hip IR/ER Joint Mobilizations hip Comments R inf glide, R add, abd and IR free the ball PT-OP-T Assessment and Plan Start: 06/29/24 17:14 Freq: Status: Active Protocol: Document 08/29/24 09:04 [facility] (Rec: 08/29/24 09:51 [facility] [id number]) Physical Therapy Assessment Goals activity Short Term Goal (STG) Pt will report being able to go for walks for 20 min at a time w/o pain greater than 5/ 10 08/23/24: progressing lasts about 30 min with pain 5/10 R hip/LBP with support of grocery cart. 08/29-20-25 min sometimes up to 30 min; about 5/10 after STG Duration achieved 08/29 Fpc Goal (LTG) Pt will report being able to go for walks for 35 min at a time w/o pain greater than 5/ 10 LTG Duration 09/26 strength Short Term Goal (STG) Pt will be indep w/HEP STG Duration achieved advancing as able [employer] Cook Goal (LTG) Pt will score at least 3/5 on LPM and at least 4+/5 on all BLE MMT to show improved stability to allow greater ease with activity. 08/19-improving LTG Duration 09/17 LEFS Impairment 25/80 Short Term Goal (STG) pt will score at least 38/80 to show improved functional ability. 08/29-35/80 STG Duration 08/18 Fpc Goal (LTG) pt will score at least 48/80 to show improved functional ability. LTG Duration 09/26 Assessment Summary Assessment Pt has made good progress w/PT at this time and is advancing w/strength and functional ability. She sitll shows weakness of trunk and hips likely affecting pain. Cont PT to work on this and improve alignment to dec pain. Physical Therapy Plan Frequency and Duration Frequency of Treatment 1-2x/wk Duration of treatment (weeks) 12 Plan of Care Start Date 07/04/24 Plan of Care End Date 09/26/24 Therapeutic Interventions Therapeutic Interventions Balance Training,Gait Training ,Home Exercise Program,Joint Mobilizations,Manual Therapy, Neuromuscular Re-education, Patient/Caregiver Education, Self-Care/Home Management,Soft Tissue Mobilization,Taping, Therapeutic Activities, Therapeutic Exercises Modalities Cold Pack/Ice Massage,Electric Stimulation,Hot Packs, Infrared Therapy,Ultrasound Next Visit Focus/Plan Next Note Type Treatment Note Next Visit Plan REview added resistance to standing exercises as tolerated. cont to work on stability of hip and core POC: gentle manual to hips, innominate and soft tissue to back/hips
--- NOTE | 2024-10-16 09:15 | PT.OPDS ---
Current Diagnoses Unilateral primary osteoarthritis, right hip (08/29/24) Pain in left hip (08/29/24) Low back pain, unspecified (08/29/24) Difficulty in walking, not elsewhere classified (08/29/24) Abnormal posture (08/29/24) Weakness (08/29/24) Visit Care Team Role Provider Type HERB Momin Attending Provider Advanced Director Industrial Family Provider Primary Care Provider Referring Provider Specialty: Medical Address: [address] [place] [address], [facility] Email: [email or web address] Number Visit Number 05/29 Discharge Summary PT-OP-B Current Condition Start: 06/29/24 17:14 Freq: Status: Active Protocol: Document 07/04/24 11:19 [facility] (Rec: 07/04/24 18:21 [facility] [id number]) Current Condition History of Current Condition Current Complaints back pain, hip pain, leg numbness/tingling History of Current Condition Pt reports she has had more prominant R hip pain in the past year and with recent weather change, L hip has also been painful. Is still having a lot of nerve pain despite back surgery. She is still having a lot of numbness and tingling. She got only 30% improvement w/surgery. SHe will be following up w/spinal surgeon soon. Has had injections and theyd idn't help. Had PT prior to surgery and that didn't help. Pain is just getting worse and worse. She is trying to put off a RHONDA as long as possible. Pain is lat hip B. Does have CMC jt pain B and has had L wrist fusion along w/ neck pain and numbness/shoulder pain. hx of tubal ligation in 2008, hernia repair and gallbladder in 2020. First problem w/back was 2009 without known cause and bulging disc was found and injured back on job in 2012 tera tto stand from desk and got caught on computer cord and fell onto back. pt has numbness and tingling from LB down buttocks, post leg, and into plantar and lat foot. this has been since 2012. Has been unable to work since 2012 . Right now walks around [facility] for maybe 15 min max and has to stop d/t pain. Had EMG also prior to surgery. Prior Treatments and Tests Lumbar MRI: MPRESSION: 1. Interval posterior decompression with posterior fusion instrumentation at L5- S1. 2. Multilevel degenerative changes of the lumbar spine, most pronounced at L5-S1, where there is severe left neural foraminal stenosis, grossly unchanged from prior exam. 3. Mild central canal stenosis at L3-4 and L4-5. Lumbar CT: 1. No acute lumbar vertebral compression fractures. 2. Status post L5-S1 posterior fusion without hardware complication. 3. Severe central bony canal stenosis at L4-L5 and severe bony foraminal stenosis at the left L5-S1 level. Please see the same day 07/01/2024 MRI lumbar spine without contrast exam for further details. xray to hip: IMPRESSION: 1. No acute bony abnormality. 2. Osteoarthritic changes to the bilateral SI joints and hip joints. Treatment Goals Patient/Caregiver Goals be able to move a little easier and be in less constant pain, be able to walk to start to exercise to help back and help lose weight PT-OP-C Subjective Start: 06/29/24 17:14 Freq: Status: Active Protocol: Document 08/29/24 09:04 [facility] (Rec: 08/29/24 09:51 [facility] [id number]) OP-PT Subjective Patient Comments Patient Comments Pt reports was really sore after acupuncture and PT same time. All the rest of the day and night was rough. Patient Questionnaires Lower Extremity Functional Scale LEFS Score 35 PT-OP-D Balance Start: 06/29/24 17:14 Freq: Status: Active Protocol: Document 07/04/24 11:19 [facility] (Rec: 07/04/24 18:21 [facility] [id number]) Balance Tests Single Limb Standing Single Limb- Right 10 sec w/lots of deviation Single Limb- Left 2 sec PT-OP-F Manual Assessment Start: 06/29/24 17:14 Freq: Status: Active Protocol: Document 07/04/24 11:19 [facility] (Rec: 07/04/24 18:21 [facility] [id number]) Manual Assessments Soft Tissue Assessment Soft Tissue Mobility Assessment tightness B spine and QL PT-OP-G Mobility & Gait Start: 06/29/24 17:14 Freq: Status: Active Protocol: Document 07/04/24 11:19 [facility] (Rec: 07/04/24 18:21 [facility] [id number]) OP Gait Assessment Comments Gait Comments very rigid trunk, dec push off B, lat lean over LE B w/ wt bearing PT-OP-J Posture/Palpation/Skin Start: 06/29/24 17:14 Freq: Status: Active Protocol: Document 08/29/24 09:04 [facility] (Rec: 08/29/24 09:51 [facility] [id number]) Posture Evaluation [facility] Postural Classification System Catherine Postural Classifications Posterior/Anterior Lumbar Protective Mechanism Left AP 2 Lumbar Protective Mechanism Right AP 2 Lumbar Protective Mechanism Left PA 1 Lumbar Protective Mechanism Right PA 1 PT-OP-K Range of Motion Start: 06/29/24 17:14 Freq: Status: Active Protocol: Document 07/04/24 11:19 [facility] (Rec: 07/04/24 18:21 [facility] [id number]) Lumbar Spine Range of Motion Lumbar Spine Active Percentage Flexion 50 Extension 40 Rotation Left 40 Rotation Right 25 Lateral Flexion Left 40 Lateral Flexion Right 15 ROM Limitations Pain Hip Goniometric Range of Motion Hip Right Active Flexion w/Knee Flexed 78 Straight Leg Raise 48 Internal Rotation 25 External Rotation 21 Left Active Flexion w/Knee Flexed 80 Straight Leg Raise 61 Internal Rotation 23 External Rotation 20 PT-OP-L Special Tests Start: 06/29/24 17:14 Freq: Status: Active Protocol: Document 07/04/24 11:19 [facility] (Rec: 07/04/24 18:21 [facility] [id number]) Special Tests Hip Special Tests obers Comments positive B slump Comments neg ext and slump sit-mild HS tension B PT-OP-M Strength Start: 06/29/24 17:14 Freq: Status: Active Protocol: Document 08/29/24 09:04 [facility] (Rec: 08/29/24 09:51 [facility] [id number]) Hip Strength Hip Manual Muscle Testing Right Flexion (L2) 4 Good Abduction 4- Good- Adduction 3- Fair- External Rotation 4 Good Internal Rotation 5 Normal Left Flexion (L2) 4+ Good+ Abduction 4+ Good+ Adduction 4+ Good+ External Rotation 4 Good Internal Rotation 5 Normal Knee Strength Knee Manual Muscle Testing Right Flexion (S2) 5 Normal Extension (L3) 4+ Good+ Left Flexion (S2) 5 Normal Extension (L3) 4+ Good+ Ankle/Foot Strength Ankle and Foot Manual Muscle Testing Right Dorsiflexion (L4) 5 Normal Plantarflexion (S1) 5 Normal Left Dorsiflexion (L4) 5 Normal Plantarflexion (S1) 5 Normal Comments PF tested seated B PT-OP-T Assessment and Plan Start: 06/29/24 17:14 Freq: Status: Active Protocol: Document 10/16/24 09:13 [facility] (Rec: 10/16/24 09:14 [facility] [id number]) Physical Therapy Assessment Goals activity Short Term Goal (STG) Pt will report being able to go for walks for 20 min at a time w/o pain greater than 5/ 10 08/23/24: progressing lasts about 30 min with pain 5/10 R hip/LBP with support of grocery cart. 08/29-20-25 min sometimes up to 30 min; about 5/10 after STG Duration achieved 08/29 Jail Goal (LTG) Pt will report being able to go for walks for 35 min at a time w/o pain greater than 5/ 10 LTG Duration 09/26 strength Short Term Goal (STG) Pt will be indep w/HEP STG Duration achieved advancing as able Welder Oxyhydrogen Goal (LTG) Pt will score at least 3/5 on LPM and at least 4+/5 on all BLE MMT to show improved stability to allow greater ease with activity. 08/19-improving LTG Duration 09/17 LEFS Impairment 25/80 Short Term Goal (STG) pt will score at least 38/80 to show improved functional ability. 08/29-35/80 STG Duration 08/18 Welder Oxyhydrogen Goal (LTG) pt will score at least 48/80 to show improved functional ability. LTG Duration 09/26 Assessment Summary Assessment Pt had made progress w/PT but cancelled and no showed last scheduled visits. DC d/t no longer attending PT. has not been seen since 08/29/24 Physical Therapy Plan Discharge Physical Therapy Discharge Reasons No Longer Attending PT
== END 2024-10-26 14:42 | disposition home or self-care (01) ==
LOC: PHYS 09:00
PROVIDERS: Family Provider Registered Nurse Diabetes Educator; PCP Registered Nurse Diabetes Educator; Referring Provider Registered Nurse Diabetes Educator; Visit Provider Registered Nurse Diabetes Educator
DX: M16.11 Unilateral primary osteoarthritis, right hip (principal); R53.1 Weakness; R29.3 Abnormal posture; R26.2 Difficulty in walking, not elsewhere classified; M54.50 Low back pain, unspecified; M25.552 Pain in left hip
CPT/HCPCS: 97110; 97140; 97162; 97535

== ENCOUNTER → 2025-04-13 15:07 | Outpatient (CLI) | payer OTHER, SELFPAY ==
[2023-07-22 08:42] VITALS: BMI 36.8
--- NOTE | 2025-04-13 15:09 | DI.MRI.S_ITS ---
PROCEDURE: MR THORACIC SPINE WO CON INDICATIONS: POST LAMINECTOMY TECHNIQUE: Noncontrast sagittal T1 spine echo and T2 fast spin echo, sagittal STIR, and T2 fast spin echo through the thoracic spine. COMPARISON: [facility], , XR THORACIC SPINE 3V, 04/13/2025, 15:47. FINDINGS: Image quality: Diagnostic Alignment and Curvature: No significant spondylolisthesis Bone Marrow: Scattered areas of focal fatty marrow and Modic changes, most notable from T7-T9. Mild multilevel disc desiccation, most notable from T6-T8. Spinal Cord: No abnormal cord signal identified. Paraspinous Soft Tissues: No drainable fluid collection. Miscellaneous: Mild T1-T2 and natv-qx-rycurxfp T2-T3 central disc protrusion. Mild thecal sac narrowing is seen at T2-T3. Mild protrusions are also seen at T4-T5 and T5-T6. Left paracentral protrusion seen at T8-T9 and T10-T11. Intrathoracic structures are not well assessed on this spine protocol study. IMPRESSION: Mild overall spondylotic changes of the thoracic spine without acute displaced fracture or traumatic subluxation. Small disc herniations as described above, without critical stenosis. Mild scattered Modic changes are present, without significant acute edema. Dictated by: Juan Carlos Varela M.D. on 04/13/2025 at 19:21 Approved by: Juan Carlos Varela M.D. on 04/13/2025 at 19:27
== END ==
PROVIDERS: PCP Registered Nurse Diabetes Educator; Referring Provider Physician Assistant Medical; Visit Provider Physician Assistant Medical
DX: M96.1 Postlaminectomy syndrome, not elsewhere classified (principal); M47.814 Spondylosis without myelopathy or radiculopathy, thoracic region; M51.24 Other intervertebral disc displacement, thoracic region; F41.9 Anxiety disorder, unspecified; F32.A Depression, unspecified; Z98.1 Arthrodesis status
CPT/HCPCS: 72072; 72146

== ENCOUNTER → 2025-04-13 15:47 | Outpatient (CLI) | payer OTHER, SELFPAY ==
[2023-07-22 08:42] VITALS: BMI 36.8
--- NOTE | 2025-04-13 15:50 | DI.RAD.S_ITS ---
PROCEDURE: XR THORACIC SPINE 3V INDICATIONS: POSTLAMINECTOMY SYNDROME TECHNIQUE: 3 views of the thoracic spine were acquired. COMPARISON: None. FINDINGS: Bones: No fractures or dislocations. No suspicious bony lesions. 12 pairs of ribs are noted, and appear intact where visualized. Disc space narrowing and hypertrophic facet joints noted particularly in the lower spine. Soft tissues: No paravertebral stripe thickening. IMPRESSION: Degenerative disc disease arthropathy without fracture or malalignment Approved by: Jose Cortes M.D. on 04/13/2025 at 18:57
== END ==
PROVIDERS: PCP Registered Nurse Diabetes Educator; Referring Provider Physician Assistant Medical; Visit Provider Physician Assistant Medical
DX: M96.1 Postlaminectomy syndrome, not elsewhere classified (principal); M47.814 Spondylosis without myelopathy or radiculopathy, thoracic region; F32.A Depression, unspecified; F41.9 Anxiety disorder, unspecified; Z98.1 Arthrodesis status
CPT/HCPCS: 72072

== ENCOUNTER 2025-10-09 16:18 | Emergency (ER) | payer OTHER, SELFPAY ==
[2023-07-22 08:42] VITALS: BMI 36.8
--- OUTSIDE RECORDS SUMMARY | 2025-10-09 16:19 | XMS_ITS | Encounter Summary ---
[facility] Address [address] [place] [address] Care Team Providers Care Developer Analyst Name Role Phone Edgar Espinoza Primary Care Provider [phone] Encounter Details Date Type Department Care Team (Late st Contact Info) Description 09/18/2025 Patient E-mail [facility] Main Operating Room [address] [place] [address] Questionnaire Submission Social History Tobacco Use Types Packs/Day Years Used Date Smoking Tobacco: Never Smokeless Tobacco: Never Alcohol Use Standard Drinks/Week Comments Not Currently 0 (1 standard drink = 0.6 oz pur e alcohol) rare, maybe 2/year Comments No Sex and Gender Information Value Date Recorded Sex Assigned at Female 11/17/2023 10:55 AM PST Legal Sex Female 8:43 AM PST Gender Identity Female 11/17/2023 10:55 AM PST Sexual Orientation Straight 11/17/2023 10 :57 AM PST documented as of this encounter Miscellaneous Notes * Telephone Encounter - Tarsha Bagley, CARLOS/PSR - 09/21/2025 10:46 AM PST 10:46 AM Incoming call from Sonya Boyle. Last Office Visit: Visit date not found with Dr. Palacios Next Office Visit: Visit date not found with Dr. Simmons Chief complaint: pt calls [facility]d to inform that the [facility] can't fill the Oxycodone rx Discussion: [facility] doesn't have Dr. Palacios's RHIANNON number? 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 Verified with Sonyakamryn Boyle that [phone] is the preferred phone number to reach patient for follow up as needed. Will route message to Pain Clinical Color Maker Formulator pediatric allergist for review and completion. Patient verbalized understanding. CARLOS Willingham Routing to Nursing documented in this encounter Plan of Treatment Upcoming Encounters Date Type Department Care Team (Late st Contact Info) Description 10/25/2025 11:00 AM PST Office Visit [facility] [address] [place] [address], [id number] [place] [id number] Erik Palacios MD [address] [place] [phone] 11/21/2025 11:40 AM PST Office Visit [facility] [address] [facility], [address] [place] [address] Joe Simmons MD [address] [place] [phone] 12/19/2025 11:40 AM PST Office Visit [facility] [address] [facility], [address] [place] [address] Joe Simmons MD [address] [place] [phone] documented as of this encounter Visit Diagnoses Not on filedocumented in this encounter Care Teams Developer Analyst Relationship Specialty Start Date End Date Edgar Espinoza ARNP [address] [place] [address], [address] [place] [phone] PCP - General Nurse Practitioner 10/25/23 documented as of this encounter
[2025-10-09 17:07] VITALS: BP 109/78; PULSE 82; RESP 16; TEMP 37.2; O2SAT 98; BMI 34.3
--- NOTE | 2025-10-09 17:45 | ED_ITS ---
<Statement entered by Rancho Valenzuela, DO - 10/09/25 22:56> Co-sign statement: I was available for consultation during this patient's emergency department visit. This chart is being signed by myself for administrative purposes only. I do not have direct contact with this patient during this visit. They were seen independently by the APC. HPI - Skin/Abscess/Foreign Bdy General Chief complaint: Skin/Abscess/Foreign Body Stated complaint: Rash under breasts x 4days Time Seen by Provider: 10/09/25 17:31 Source: patient Mode of arrival: Ambulatory Limitations: no limitations History of Present Illness HPI narrative: 50-year-old female presents to the ED with a erythematous, burning rash under her breasts. No fever, chills, chest pain, shortness of breath. Related Data Home Medications ?Medication ?Instructions ?Recorded ?Confirmed cetirizine 10 mg capsule (Zyrtec) 10 mg PO DAILY 07/1307/11/25 fluticasone propionate 50 2 spray intranasal DAILY 07/11/25 mcg/actuation nasal spray,suspension (Flonase Allergy Relief) acetaminophen 500 mg tablet mg PO 01/10/24 07/11/25 buprenorphine 5 mcg/hour weekly 1 patch topical 07/11/25 transdermal patch pregabalin 75 mg capsule 75 mg PO BID 06/19/25 Previous Rx's ?Medication ?Instructions ?Recorded naloxone 4 mg/actuation nasal 4 mg intranasal Q2M PRN opioid 10/02/24 spray (Narcan) overdose #2 ea bupropion HCl 300 mg 24 hr tablet, 300 mg PO QAM #90 t abs 04/10/25 extended release (Wellbutrin XL) buspirone 7.5 mg tablet 7.5 mg PO TID #270 tabs 03/19 02/09 metformin 500 mg tablet 500 mg PO BID #180 tabs 03/19 02/09 nadolol 40 mg tablet 40 mg PO BID #180 tabs 04/10 progesterone micronized 100 mg 100 mg PO DAILY #90 cap s 04/10/25 capsule topiramate 50 mg tablet 50 mg PO BID #180 tabs 04/10 trazodone 50 mg tablet 150 mg (3 x 50 mg) PO BEDTIM E PRN 04/10/25 insomnia #270 tabs phentermine 37.5 mg tablet 18.75 mg (1/2 x 37.5 mg) PO DAILY 04/15/25 #15 tabs lidocaine 5 % topical patch 1 patch topical DAILY #30 ea 07/06/25 estradiol 0.025 mg/24 hr 1 patch transdermal 2XW #8 e a 07/31/25 semiweekly transdermal patch (Vivelle-Dot) meloxicam 15 mg tablet 15 mg PO DAILY #90 tabs 11/11 cyclobenzaprine 10 mg tablet 10 mg PO TID PRN muscle s pasm #90 10/04/25 tabs fluconazole 150 mg tablet 150 mg PO Q3D 2 doses #2 tab s 10/09/25 Allergies Allergy/AdvReac Type Severity Reaction Status Date / Time labetalol AdvReac Intermediate Itchy rash Verified 07/11/25 10:39 Review of Systems Constitutional Constitutional: Denies chills, Denies fatigue, Denies fever(s), Denies frequent falls, Denies lethargy and Denies weakness Eyes Eyes: Denies change in vision, Denies eye discharge, Denies irritation and Denies loss of vision ENT Ears, Nose, Mouth, and Throat: Denies change in voice, Denies dizziness, Denies neck pain, Denies sore throat and Denies throat swelling Cardiovascular Cardiovascular: Denies chest pain, Denies irregular heart rhythm, Denies lightheadedness, Denies palpitations, Denies dyspnea, Denies dyspnea on exertion and Denies orthopnea Respiratory Respiratory: Denies cough, Denies dyspnea, Denies dyspnea on exertion and Denies wheezing Gastrointestinal Gastrointestinal: Denies abdominal pain, Denies change in bowel habits, Denies diarrhea, Denies nausea and Denies vomiting Musculoskeletal Musculoskeletal: Denies neck pain and Denies numbness Integumentary/Breasts Skin/Breast: Denies pruritus, Denies erythema, Reports rash and Denies wounds Comments: Erythematous, burning rash under breasts. Neurologic Neurologic: Denies behavioral changes, Denies confusion, Denies dizziness, Denies frequent falls, Denies loss of vision, Denies numbness and Denies weakness Psychiatric Psychiatric: Denies anxiety, Denies behavioral changes, Denies confusion, Denies depression, Denies homicidal ideation and Denies suicidal ideation Endocrine Endocrine: Denies fatigue, Denies flushing and Denies palpitations Hematologic/Lymphatic Hematologic/Lymphatic: Denies easy bruising Allergic/Immunologic Allergic/Immunologic: Denies urticaria, Denies throat swelling and Denies wheezing Patient History Medical History Increased risk of breast cancer Postmenopausal HRT (hormone replacement therapy) Lumbar spinal stenosis Lumbar spondylosis SI (sacroiliac) joint dysfunction Lumbar radiculopathy Impaired fasting blood sugar Dyslipidemia Snoring Insomnia due to medical condition Obesity (BMI 30-39.9) Obstructive sleep apnea, adult Arthritis Depression Anxiety Chronic low back pain Eczema Neuropathy History of migraine headaches Pain HLD (hyperlipidemia) HTN (hypertension) Diverticulitis History of diverticulitis Surgical History Status post lumbar spinal fusion H/O left wrist surgery Hx laparoscopic cholecystectomy (07/13/20) History of tubal ligation (10/26/08) Family History Family/Other Coronary artery disease Social History marital status: details: lives in [place] number of children: 2 household members: spouse and children lives independently: Yes caregiver/support person: No housing: apartment pets and animals: No education level: college Smoking Status: Former smoker alcohol intake: current Smoking Status: Former smoker alcohol intake frequency: holidays/special occasions only Exam Narrative Exam Narrative: Const General:?cooperative, healthy appearing and comfortable [facility] Head:?normal to inspection Ears:?hearing grossly normal bilaterally Nose:?external nose normal Face and sinus:?normal facial exam and sinuses nontender Mouth:?oral mucosae normal Throat:?posterior oropharynx normal Eyes General:?appearance normal, both eyes and all related structures Neck Neck:?normal visual inspection and no lymphadenopathy noted Resp Effort & Inspection:?normal respiratory effort Auscultation:?clear to auscultation bilaterally Cardio Rate:?regular rate Rhythm:?regular rhythm Integumentary There is an erythematous, diffuse rash under the breasts. No superimposed bacterial infection. Most consistent with a yeast infection. Neuro General:?patient alert, patient awake and patient oriented x3 Initial Vital Signs Initial Vital Signs: Vital Signs Temperature 98.9 F 10/09/25 17:07 Pulse Rate 82 10/09/25 17:07 Respiratory Rate 16 10/09/25 17:07 Blood Pressure 109/78 10/09/25 17:07 Pulse Oximetry 98 10/09/25 17:07 Oxygen Delivery Method Room Air 10/09/25 17:07 Course Vital Signs Vital signs: Vital Signs - 8 hr 10/09/25 17:07 Temperature 98.9 F Pulse Rate 82 Respiratory Rate 16 Blood Pressure 109/78 Pulse Oximetry 98 Oxygen Delivery Method Room Air MDM - Skin/Abscess/Foreign Bdy MDM Narrative Medical decision making narrative: 50-year-old female presents to the ED with a erythematous, burning rash under her breasts. Patient's rash is consistent with a skin yeast infection. Prescribed medication, recommend antifungal powders as well. Recommend follow- up with PCP as soon as possible. ED return precautions discussed with patient. Patient verbalized understanding. Medical records reviewed: Yes Discharge Plan Departure Patient Disposition: Home Clinical Impression: Fungal infection Instructions: DI for Yeast Infection-Skin Activity Restrictions/Additional Instructions: You were evaluated in the emergency department today for a rash under your breasts. It appears that you have a yeast infection that is causing the rash. You are being prescribed fluconazole which you may take once or twice until the rash resolves. You may also use some drying powders that are available [id number] such as Lotrimin antifungal powder. Please follow-up with your PCP as soon as possible. Return to the ED if you have worsening symptoms. Prescriptions: New fluconazole 150 mg tablet 150 mg PO Q3D Qty: 2 0RF Rx Instructions: may repeat second dose 72 hrs after first dose if symptoms persist No Action naloxone [Narcan] 4 mg/actuation spray,non-aerosol 4 mg intranasal Q2M PRN (Reason: opioid overdose) Qty: 2 0RF Rx Instructions: spray 1 dose into ONE nostril; alternate nostrils w each dose until help arrives estradiol [Vivelle-Dot] 0.025 mg/24 hr patch semiweekly 1 patch transdermal 2XW Qty: 8 3RF Rx Instructions: apply 1 patch for 3 days alternating with 1 patch for 4 days each week meloxicam 15 mg tablet 15 mg PO DAILY Qty: 90 1RF cyclobenzaprine 10 mg tablet 10 mg PO TID PRN (Reason: muscle spasm) Qty: 90 3RF acetaminophen 500 mg tablet PO buprenorphine 5 mcg/hour patch weekly 1 patch topical topiramate 50 mg tablet 50 mg PO BID Qty: 180 1RF bupropion HCl [Wellbutrin XL] 300 mg tablet extended release 24 hr 300 mg PO QAM Qty: 90 3RF buspirone 7.5 mg tablet 7.5 mg PO TID Qty: 270 3RF trazodone 50 mg tablet 150 mg PO BEDTIME PRN (Reason: insomnia) Qty: 270 1RF nadolol 40 mg tablet 40 mg PO BID Qty: 180 3RF metformin 500 mg tablet 500 mg PO BID Qty: 180 1RF progesterone micronized 100 mg capsule 100 mg PO DAILY Qty: 90 3RF phentermine 37.5 mg tablet 18.75 mg PO DAILY Qty: 15 2RF Rx Instructions: must administer 30 minutes before or 1-2 hours after breakfast lidocaine 5 % adhesive patch,medicated 1 patch topical DAILY Qty: 30 5RF Rx Instructions: leave on most painful area for 12 hrs pregabalin 75 mg capsule 75 mg PO BID fluticasone propionate [Flonase Allergy Relief] 50 mcg/actuation [place],Suspension 2 spray INTRANASAL DAILY Zyrtec 10 mg Capsule 10 mg PO DAILY Referrals: Edgar Espinoza ARNP [Primary Care Provider, Medical] Stand Alone Forms: Patient Portal/API
[2025-10-09 17:50] VITALS: BP 115/87; PULSE 89; RESP 16; TEMP 36.6; O2SAT 99
== END 2025-10-09 17:50 | disposition home or self-care (01) ==
PROVIDERS: Emergency Provider Student in an Organized Health Care Education/Training Program; PCP Registered Nurse Diabetes Educator
DX: B49 Unspecified mycosis (principal)
CPT/HCPCS: 99281